=== PATIENT | female | born 1950 | race Caucasian/White ===

== ENCOUNTER → 2018-01-05 13:56 | Outpatient (CLI) | payer MEDICARE, SELFPAY ==
--- NOTE | 2018-01-05 16:45 | RAD_ITS ---
STUDY: X-RAY CHEST REASON FOR EXAM: Female, 67 years old. Productive cough and short of breath. TECHNIQUE: Frontal and lateral views of the chest. COMPARISON: 05/25/2017. FINDINGS: There is hyperinflation of the lungs consistent with chronic obstructive lung disease (COPD). No infiltrates. No effusions. There is no demonstrated pleural abnormality. Normal size heart. Normal mediastinum and tamia. Normal visualized pulmonary arteries. Normal visualized aortic arch and descending thoracic aorta. There are diffuse degenerative changes of the visualized thoracic spine. Previous cervical spine surgery. Normal visualized ribs, clavicles, and shoulders. There is no demonstrated abnormality of the visualized soft tissue structures of the upper abdomen. RAD/Chest PA and Lateral IMPRESSION: There are findings consistent with COPD. There is no evidence of acute chest disease. Electronically Signed: Ghassan Yung MD at 0:01 EDT , Service support ,
[2018-01-05 17:44] LABS: Absolute Neutrophil Count 11.9 X10^3/uL (2.0-7.7); Basophil# 0.03 X10^3/uL; Basophil% 0.2 % (0-1); Eosinophil# 0.01 X10^3/uL; Eosinophils% 0.1 % (0-5); Hematocrit 39.1 % (37-47); Hemoglobin 13.1 g/dl (12.0-15.0); Lymphocyte % 13.6 % (19-41); Mean Corp Hgb Conc 33.5 g/gl (32-36); Mean Corpuscular Hgb 30.8 pg (27.0-32.0); Mean Corpuscular Volume 91.8 fL (81-99); Monocyte# 0.78 X10^3/uL; Monocyte% 5.3 % (0-10); Neutrophil # 11.86 X10^3/uL (2.7-7.7); Neutrophil % 80.4 % (47-70); Platelet Count 391 K/mm3 (150-450); RBC Distribution Width CV 13.6 % (11.6-14.6); RBC Distribution Width SD 44.9 fl (35.1-43.9); Red Blood Count 4.26 M/mm3 (4.2-5.4); White Blood Count 14.7 K/mm3 (4.4-11.0)
[2018-01-05 17:46] LABS: POSITIVE COUNT NO; POSITIVE DIFFERENTIAL NO; POSITIVE MORPHOLOGY NO
[2018-01-05 17:49] LABS: Anion Gap 6 (5-15); BUN 13 mg/dL (7-18); BUN/Creat Ratio 17.2 RATIO (10-20); Chloride 101 mmol/L (98-107); Creatinine, Serum 0.76 mg/dL (0.55-1.02); EST Glomerular Filtration Rate 81 mL/min (>60); Est Glom Filt Rate - Afr Amer 97 mL/min (>60); Glucose 137 mg/dL (74-106); Potassium 3.5 mmol/L (3.5-5.1); Sodium Level 139 mmol/L (136-145)
== END ==
PROVIDERS: Family Provider Family Medicine Geriatric Medicine; PCP Family Medicine Geriatric Medicine; Visit Provider Family Medicine Geriatric Medicine
DX: J40 Bronchitis, not specified as acute or chronic (principal); R68.83 Chills (without fever)
CPT/HCPCS: 36415; 71046; 80048; 85025; 87633

== ENCOUNTER → 2018-01-29 14:48 | Outpatient (CLI) | payer MEDICARE, SELFPAY ==
--- NOTE | 2018-01-29 14:52 | BI_ITS ---
MAMMOGRAPHY - BILATERAL SCREENING REASON FOR EXAM: Female, 67 years old. Routine annual screening examination. PERTINENT HISTORY: Aunt with breast cancer. Remote right excisional breast biopsy. TECHNIQUE: Digital bilateral breast junior (3D mammographic acquisition) in the CC and MLO projections. 2-D mediolateral oblique (MLO) and craniocaudad (CC) views of both breasts were obtained. CAD: Full Field Digital Mammography with Computer Added Detection was performed. COMPARISON: Comparison is made with prior study dated October 31, 2016 and May 27, 2013. FINDINGS: Breast Composition: There are scattered areas of fibroglandular density. There are no dominant masses or suspicious calcifications. No other significant abnormalities are identified. There has been no significant change since the prior study. BI/SCREENING MAMM (CAD), BILAT IMPRESSION: Stable bilateral screening mammogram. Yearly follow-up mammogram recommended. (A) ASSESSMENT CATEGORY: BIRADS Category 1: Negative. A letter regarding these results will be sent to the patient by the facility within 30 days. Approximately 10% of breast cancers are not detected by mammography. A normal mammogram should not delay biopsy of a clinically suspicious abnormality. [id number] Electronically Signed: Vineet Harrington MD at 15:52 EDT Tel [phone], Service support ,
== END ==
PROVIDERS: Family Provider Family Medicine Geriatric Medicine; PCP Family Medicine Geriatric Medicine; Visit Provider Obstetrics & Gynecology
DX: Z12.31 Encounter for screening mammogram for malignant neoplasm of breast (principal)
CPT/HCPCS: 77063; 77067

== ENCOUNTER → 2018-07-22 11:20 | Outpatient (CLI) | payer MEDICARE, SELFPAY | PROVIDERS: Family Provider Family Medicine Geriatric Medicine; PCP Family Medicine Geriatric Medicine; Referring Provider Family Medicine Geriatric Medicine; Visit Provider Family Medicine Geriatric Medicine | DX: R68.83 Chills (without fever) (principal) | CPT/HCPCS: 87633 ==

== ENCOUNTER → 2018-08-26 11:40 | Outpatient (CLI) | payer MEDICARE, SELFPAY ==
[2018-08-26 13:36] LABS: Absolute Neutrophil Count 6.2 X10^3/uL (2.0-7.7); Basophil# 0.02 X10^3/uL; Basophil% 0.2 % (0-1); Eosinophil# 0.05 X10^3/uL; Eosinophils% 0.6 % (0-5); Hematocrit 41.2 % (37-47); Hemoglobin 13.6 g/dl (12.0-15.0); Lymphocyte % 22.5 % (19-41); Mean Corpuscular Hgb 31.1 pg (27.0-32.0); Mean Corpuscular Volume 94.1 fL (81-99); Mean Platelet Vol. 10.4 fl (6.2-12.0); Monocyte# 0.55 X10^3/uL; Monocyte% 6.2 % (0-10); Neutrophil # 6.24 X10^3/uL (2.7-7.7); Neutrophil % 70.2 % (47-70); Platelet Count 396 K/mm3 (150-450); RBC Distribution Width CV 13.7 % (11.6-14.6); RBC Distribution Width SD 47.2 fl (35.1-43.9); Red Blood Count 4.38 M/mm3 (4.2-5.4); White Blood Count 8.9 K/mm3 (4.4-11.0)
[2018-08-26 13:48] LABS: POSITIVE COUNT NO; POSITIVE DIFFERENTIAL NO; POSITIVE MORPHOLOGY NO
[2018-08-26 14:01] LABS: ALB/GLOB Ratio 0.9 RATIO (0.9-2.4); AST(SGOT) 15 U/L (15-37); Alanine Aminotransfer ALT/SGPT 29 U/L (13-56); Albumin, Serum 3.6 g/dL (3.2-5.0); Alkaline Phosphatase 148 U/L (45-117); Anion Gap 10 (5-15); BUN 11 mg/dL (7-18); BUN/Creat Ratio 14.2 RATIO (10-20); Calcium,Total 9.1 mg/dL (8.5-10.1); Chloride 99 mmol/L (98-107); Creatinine, Serum 0.78 mg/dL (0.55-1.02); EST Glomerular Filtration Rate 78 mL/min (>60); Est Glom Filt Rate - Afr Amer 95 mL/min (>60); Globulin 3.9 g/dL (2.2-4.2); Glucose 316 mg/dL (74-106); Potassium 3.5 mmol/L (3.5-5.1); Protein, Total 7.5 g/dL (6.4-8.2); Sodium Level 138 mmol/L (136-145)
[2018-08-27 10:16] LABS: Vitamin D,25 Hydroxy 23.6 ng/mL (29.95-100.01)
== END ==
PROVIDERS: Family Provider Family Medicine Geriatric Medicine; PCP Family Medicine Geriatric Medicine; Visit Provider Family Medicine Geriatric Medicine
DX: E55.9 Vitamin D deficiency, unspecified (principal); R53.83 Other fatigue
CPT/HCPCS: 36415; 80053; 82306; 84443; 85025

== ENCOUNTER 2018-10-28 16:47 | Inpatient (IN) | payer MEDICARE, SELFPAY ==
[2018-10-28 16:48] VITALS: BP 175/72; PULSE 61; RESP 16; TEMP 36.6; O2SAT 97; BMI 24.0
--- NOTE | 2018-10-28 16:57 | RAD_ITS ---
STUDY: X-RAY - LEFT KNEE REASON FOR EXAM: Female, 67 years old. Fell and injured left knee TECHNIQUE: 4 view(s) of the knee. COMPARISON: None. FINDINGS: Normal visualized distal femur. Normal visualized proximal tibia and fibula. Normal proximal tibiofibular articulation. Normal medial femorotibial compartment. Normal lateral femorotibial compartment. Normal patellofemoral articulation. The soft tissue structures are unremarkable. RAD/Knee 4 or More Views IMPRESSION: Normal x-ray examination of the knee. Electronically Signed: Efrain Hewitt MD at 18:40 EDT , Service support ,
--- NOTE | 2018-10-28 16:57 | RAD_ITS ---
STUDY: X-RAY - CERVICAL SPINE REASON FOR EXAM: Female, 67 years old. Fell and injured neck TECHNIQUE: 6 view(s) of the cervical spine were obtained. COMPARISON: CT cervical spine May 18, 2015 FINDINGS: Normal anterior atlantoaxial articulation. Normal odontoid process. Anterior plate and screws transfixes C5 and C6. Bony fusion. Hardware intact. Normal cervical lordosis. Normal vertebral bodies and endplates. Normal disc space heights. Normal visualized intervertebral neuroforamina. The soft tissue structures are unremarkable. RAD/Cerv Spine 2 or 3 Views IMPRESSION: Anterior cervical disc fusion C5-6 Electronically Signed: Efrain Hewitt MD at 18:43 EDT , Service support ,
--- NOTE | 2018-10-28 16:57 | RAD_ITS ---
STUDY: X-RAY - LEFT SHOULDER REASON FOR EXAM: Female, 67 years old. Fell and injured left shoulder TECHNIQUE: 2 view(s) of the shoulder. COMPARISON: None. FINDINGS: Normal glenohumeral articulation. Normal acromioclavicular joint. Normal acromion. Normal humeral head and visualized proximal humerus. The soft tissue structures are unremarkable. Normal visualized pulmonary apex. RAD/Shoulder min 2 Views IMPRESSION: Normal x-ray examination of the shoulder. Electronically Signed: Efrain Hewitt MD at 19:00 EDT , Service support ,
--- NOTE | 2018-10-28 16:57 | RAD_ITS ---
STUDY: X-RAY - PELVIS AND LEFT HIP REASON FOR EXAM: Female, 67 years old. Fell and injured left hip TECHNIQUE: 3 views of the pelvis and hip. COMPARISON: None. FINDINGS: There is a non-specific bowel gas pattern. Normal visualized soft tissue structures. Normal bilateral iliac wings, sacroiliac joints and visualized sacrum. Normal bilateral superior and inferior pubic rami. Normal pubic symphysis. Normal bilateral ischial tuberosities. Nondisplaced Transverse fracture base of femoral neck. Normal visualized femoral head. Normal acetabulum. Normal hip joint. RAD/HIP, UNI W/ Pelvis 2-3 Views IMPRESSION: Nondisplaced Basicervical femoral neck fracture on the left Electronically Signed: Efrain Hewitt MD at 18:38 EDT , Service support ,
--- NOTE | 2018-10-28 17:00 | ED.DCSUM_ITS ---
- ER Visit Summary Date of Service: 10/28/18 Chief Complaint: Fall History of Present Illness: The patient is a 67 F who presents after a fall. She tripped in her garage and landed on her left side. No LOC or head trauma. She does have some slight pain in her neck. Her main complaint is of left hip pain. She also has pain in the left shoulder, left hand and left knee. No previous surgeries to the hip. She is on no blood thinning medications. EMS immobilized her but did not administer any medications. Physical Examination: Vital signs are reviewed. HEENT exam unremarkable area at her cervical spine is nontender. Heart is regular rate and rhythm. Lungs are clear. Abdomen soft nontender. Her left shoulder is mildly tender. She has limited range of motion secondary to pain of the hand and shoulder. Hand is mildly tender as well. Her left hip is exquisitely tender with no range of motion because of pain. She keeps it in a flexed position. She does have pain with tenderness of the greater trochanteric area. Her left knee is also mildly tender with some swelling. Her GCS is 15. Neurologic exam normal. Test Results: X-rays of the left hand, knee, shoulder and cervical spine reveal nothing acute. The left hip x-ray does have a basicervical fracture Emergency Department Course and Treatment: Patient was given morphine and Dilaudid for continued pain. I discussed with Dr. Pollock and the patient will be admitted to the hospitalist for the left hip fracture. Screening labs and EKG will also be performed. Treatment Plan: [] Disposition: Admit Impression: Left basicervical hip fracture This note was generated with Perfect [employer] dictation software. It may contain incorrect words, spelling, and punctuation that were not noted in review of the chart prior to signing ED Disposition - Plan for ED Patient: Referrals: Marty Steve Chi, MD [Primary Care Provider] -
[2018-10-28 17:03] VITALS: O2SAT 99
[2018-10-28] MEDS: morphine 8 MG/ML Syringe IV (17:10)
--- NOTE | 2018-10-28 17:50 | RAD_ITS ---
STUDY: X-RAY - LEFT HAND REASON FOR EXAM: Female, 67 years old. Fell and injured left hand TECHNIQUE: 3 view(s) of the hand. COMPARISON: None. FINDINGS: Normal radiocarpal articulation. Normal distal radioulnar joint. Normal visualized carpal bones. Normal carpal articulations Normal carpometacarpal articulation of the thumb. Normal second through fifth carpometacarpal joints. Normal metacarpi. Normal metacarpophalangeal joint of the thumb. Normal interphalangeal joint of the thumb. Normal proximal and distal phalanges of the thumb. Normal metacarpophalangeal joints of the second through fifth fingers. Normal proximal and distal interphalangeal joints of the second through fifth fingers. Normal phalanges of the second through fifth fingers. The soft tissue structures are unremarkable. RAD/Hand Min 3 Views IMPRESSION: Normal x-ray examination of the hand. Electronically Signed: Efrain Hewitt MD at 19:02 EDT , Service support ,
[2018-10-28 18:25] VITALS: BP 153/84; PULSE 67; RESP 18; O2SAT 95
[2018-10-28] MEDS: HYDROmorphone 1 MG/ML Syringe IV (18:32)
[2018-10-28 18:49] LABS: Absolute Neutrophil Count 11.6 X10^3/uL (2.0-7.7); Basophil# 0.03 X10^3/uL; Basophil% 0.2 % (0-1); Eosinophil# 0.05 X10^3/uL; Eosinophils% 0.3 % (0-5); Hematocrit 37.1 % (37-47); Hemoglobin 12.5 g/dl (12.0-15.0); Lymphocyte % 12.6 % (19-41); Mean Corp Hgb Conc 33.7 g/gl (32-36); Mean Corpuscular Hgb 30.9 pg (27.0-32.0); Mean Corpuscular Volume 91.6 fL (81-99); Monocyte# 0.78 X10^3/uL; Monocyte% 5.5 % (0-10); Neutrophil # 11.57 X10^3/uL (2.7-7.7); Neutrophil % 80.8 % (47-70); Platelet Count 339 K/mm3 (150-450); RBC Distribution Width SD 43.6 fl (35.1-43.9); Red Blood Count 4.05 M/mm3 (4.2-5.4); White Blood Count 14.3 K/mm3 (4.4-11.0)
[2018-10-28 18:50] LABS: POSITIVE COUNT NO; POSITIVE DIFFERENTIAL NO; POSITIVE MORPHOLOGY NO
[2018-10-28 18:57] LABS: International Normalized Ratio 1.1; Prothrombin Time (Protime)PT. 13.7 SECONDS (11.7-14.9)
--- NOTE | 2018-10-28 19:10 | ED.RN ---
DR MISTRY CALL REFERENCE THIS ADMIT, DR MCKEON WILL BE IN SOON TO TAKE IT
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
[2018-10-28] MEDS: fentaNYL 100 MCG/2 ML Ampul 50 MCG IV (19:20)
[2018-10-28 19:21] VITALS: BMI 24.0
--- NOTE | 2018-10-28 19:22 | EKG12_ITS ---
Test Reason : FALL Blood Pressure : / mmHG Vent. Rate : 097 BPM Atrial Rate : 097 BPM P-R Int : 172 ms QRS Dur : 082 ms QT Int : 366 ms P-R-T Axes : 063 049 027 degrees QTc Int : 464 ms Sinus rhythm with occasional Premature ventricular complexes Cannot rule out Inferior infarct , age undetermined Cannot rule out Anterior infarct , age undetermined Abnormal ECG Confirmed by LUIS A GRANDE ([id number]), avid editor ARSH REID ([id number]) on 11/01/2018 4:53:08 PM Referred By: MAYRA Confirmed By:LUIS A GRANDE
[2018-10-28 19:24] LABS: Anion Gap 8 (5-15); BUN 9 mg/dL (7-18); BUN/Creat Ratio 14.6 RATIO (10-20); Calcium,Total 8.5 mg/dL (8.5-10.1); Chloride 105 mmol/L (98-107); Creatinine, Serum 0.62 mg/dL (0.55-1.02); EST Glomerular Filtration Rate 102 mL/min (>60); Est Glom Filt Rate - Afr Amer 123 mL/min (>60); Estimated Creatinine Clearance 51.63 ml/min; Glucose 162 mg/dL (74-106); Potassium 3.1 mmol/L (3.5-5.1); Sodium Level 139 mmol/L (136-145)
[2018-10-28 19:43] VITALS: BP 176/81; PULSE 95; RESP 18; O2SAT 96
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
[2018-10-28] MEDS: HYDROmorphone 0.5 MG/0.5 ML SYRINGE IV (21:32)
[2018-10-28] MEDS: Donepezil HCl 5 MG Tablet PO (21:32)
[2018-10-28 21:47] VITALS: BP 117/61; PULSE 83; RESP 18; TEMP 37.4; O2SAT 95
[2018-10-28 21:49] LABS: Magnesium 1.9 mg/dL (1.6-2.6)
[2018-10-28] MEDS: 0.9% Normal Saline 1,000 ML 100 ML IV (22:25)
[2018-10-28] MEDS: MELATONIN 10 MG TABLET PO (22:25)
[2018-10-28 22:29] VITALS: BMI 24.3
[2018-10-28 22:46] LABS: Thyroid Stim Hormone (TSH) 6.24 uIU/mL (0.358-3.74)
[2018-10-28 22:54] LABS: Hemoglobin A1c 8.9 % (4.2-6.3)
[2018-10-28] MEDS: oxyCODONE 5 MG Tablet PO (23:39)
[2018-10-29] VITALS (17 sets, daily range): BP systolic 102–153; BP diastolic 55–80; PULSE 70–113; RESP 14–22; TEMP 36.7–37.6; O2SAT 90–95; BMI 24.3; BMI 24.0
[2018-10-29] MEDS: Ketorolac 30 MG/ML Syringe IV (02:14)
[2018-10-29] MEDS: HYDROmorphone 1 MG/ML Syringe IV ×2 (02:15→12:28)
[2018-10-29 02:35] LABS: Mucous, Urine 0 SEEN /hpf (<or=2+); White Blood Cells 0 SEEN /hpf (0-5)
[2018-10-29 02:39] LABS: Color, Urine Yellow (Yellow); Glucose, Dipstick 50 mg/dl (Normal); Ketone-Dipstick 5 mg/dl (Negative); Leukocyte Esterase-Dipstick Negative /ul (Negative); Nitrite-Dipstick Negative (Negative); Occult Blood-Urine Negative /ul (Negative); Protein-Dipstick 30 mg/dl (Negative); Urine Clarity Turbid (Clear); Urine Urobilinogen 1 mg/dl (Normal)
[2018-10-29 02:47] LABS: Urine Bilirubin Dipstick 1 mg/dL (Negative)
[2018-10-29 02:52] LABS: Bacteria 3+ /hpf (None Seen); Hyaline Cast 0-5 SEEN /lpf (0-5); Red Blood Cells-Urine 0-5 SEEN /hpf (0-5); Squamous Epithelial Cells - UA 0-5 SEEN /hpf (5-10)
[2018-10-29 05:49] LABS: Absolute Lymphocyte Count 1.27 X10^3/ul (0.83-4.51); Absolute Neutrophil Count 9.9 X10^3/uL (2.0-7.7); Basophil# 0.03 X10^3/uL; Basophil% 0.2 % (0-1); Eosinophil# 0.03 X10^3/uL; Eosinophils% 0.2 % (0-5); Hematocrit 36.4 % (37-47); Hemoglobin 11.8 g/dl (12.0-15.0); Lymphocyte # 1.27 X10^3/ul (4.0); Lymphocyte % 10.4 % (19-41); Mean Corp Hgb Conc 32.4 g/gl (32-36); Mean Corpuscular Hgb 30.7 pg (27.0-32.0); Mean Corpuscular Volume 94.8 fL (81-99); Monocyte# 1.04 X10^3/uL; Monocyte% 8.5 % (0-10); Neutrophil # 9.85 X10^3/uL (2.7-7.7); Neutrophil % 80.4 % (47-70); Platelet Count 306 K/mm3 (150-450); RBC Distribution Width SD 43.7 fl (35.1-43.9); Red Blood Count 3.84 M/mm3 (4.2-5.4); White Blood Count 12.3 K/mm3 (4.4-11.0)
--- NOTE | 2018-10-29 05:55 | EKG12_ITS ---
Test Reason : AM Blood Pressure : / mmHG Vent. Rate : 078 BPM Atrial Rate : 078 BPM P-R Int : 168 ms QRS Dur : 078 ms QT Int : 382 ms P-R-T Axes : 037 024 064 degrees QTc Int : 435 ms Sinus rhythm with occasional Premature ventricular complexes Low voltage QRS Borderline ECG When compared with ECG of 28-OCT-2018 19:31, MANUAL COMPARISON REQUIRED, DATA IS UNCONFIRMED Confirmed by JOSE OROSCO, QUIRINO ([id number]), newspaper or periodical editor ARSH REID ([id number]) on 11/03/2018 2:01:10 PM Referred By: MIKE Confirmed By:QUIRINO GARCIA MD
[2018-10-29 05:57] LABS: POSITIVE COUNT NO; POSITIVE DIFFERENTIAL NO; POSITIVE MORPHOLOGY NO
[2018-10-29 06:16] LABS: ALB/GLOB Ratio 0.8 RATIO (0.9-2.4); AST(SGOT) 20 U/L (15-37); Alanine Aminotransfer ALT/SGPT 25 U/L (13-56); Albumin, Serum 2.9 g/dL (3.2-5.0); Alkaline Phosphatase 86 U/L (45-117); Anion Gap 4 (5-15); BUN 12 mg/dL (7-18); Calcium,Total 8.1 mg/dL (8.5-10.1); Chloride 111 mmol/L (98-107); Creatinine, Serum 0.71 mg/dL (0.55-1.02); EST Glomerular Filtration Rate 87 mL/min (>60); Est Glom Filt Rate - Afr Amer 105 mL/min (>60); Globulin 3.6 g/dL (2.2-4.2); Glucose 198 mg/dL (74-106); Potassium 4.7 mmol/L (3.5-5.1); Protein, Total 6.5 g/dL (6.4-8.2); Sodium Level 142 mmol/L (136-145); T4 Free Direct 1.21 ng/dL (0.76-1.46)
[2018-10-29] MEDS: Insulin Lispro 100 UNIT/ML INSULN.PEN SC ×2 (06:25→23:08)
[2018-10-29 06:26] LABS: Bedside Glucose 185 mg/dL (70-110)
[2018-10-29] MEDS: oxyCODONE 5 MG Tablet PO (06:26)
[2018-10-29] MEDS: 0.9% Normal Saline 1,000 ML 100 ML IV ×2 (07:30→18:49)
--- NOTE | 2018-10-29 09:16 | CASEMGMT ---
Social Work Note URBANO met with pt. URBANO introduced self and role at [facility]. Pt is alert and orientated x4. SW informed pt that she may be a good candidate for RU as pt was previously independent with ADLS. Pt agreeable to RU. URBANO explained pt will need pre-cert from insurance. Pt states understanding. URBANO spoke with Sonal with RU stating she will review PT/OT notes and will submit for pre-cert for RU. Pt is having surgery today. Plan: RU pending pre-cert Jennifer Jasso INDEPENDENT LIVING SPECIALIST, NEGATIVE TURNER APPRENTICE
[2018-10-29] MEDS: Escitalopram Oxalate 10 MG Tablet PO (09:36)
[2018-10-29] MEDS: Famotidine 20 MG Tablet PO (09:36)
--- NOTE | 2018-10-29 09:49 | NURSING ---
Karly in [facility] called and states that patient will be picked up for surgery at 1400- Asha, MICHELE and SNAPPER ON's notified of same.
[2018-10-29 12:16] LABS: Bedside Glucose 157 mg/dL (70-110)
--- NOTE | 2018-10-29 12:18 | PN_ITS ---
Patient Problems: Active and Suspected Problems Closed left hip fracture (Acute) Subjective: The patient is a 67-year-old female with a past medical history of anxiety/depression, former tobacco dependence, cervical fusion at C5-6 and strong family history of dementia, on prophylactic Aricept presented to the emergency department at [facility] on 10/28/2018 after having a fall in her garage. She denied syncope. She had severe left hip pain and x-ray in the emergency room showed a nondisplaced basicervical femoral neck fracture on the left. Left knee x-ray was normal. Left shoulder and hand x-rays were normal. Significant lab included an elevated white blood cell count at 14.3 with 81% neutrophils, potassium of 3.1 and hemoglobin A1c of 8.9. UA had 0 WBCs but 3+ bacteria. She was admitted to the hospital with a diagnosis of left hip fracture and Dr. Pollock was consulted for surgery. All events of the past 24 hours of been reviewed. She is afebrile. Blood pressure was initially high but is currently 136/59. She is 93-94% saturated on 2 L nasal cannula. All lab was personally reviewed. TSH is increased at 6.24 but the free T4 is normal at 1.21. Denies chest pain, shortness of breath, abdominal pain, nausea. EKG shows normal sinus rhythm with a PVC and no suspicious ST or T wave changes. No evidence of prior myocardial infarction. Objective: PHYSICAL EXAM: GENERAL: alert, oriented X 3, Cooperative, NAD ORAL: dry mucosa, no mucosal lesions NECK: No JVD, supple, trachea midline LUNGS: CTA, symmetric chest expansion, not tachypneic lying flat in bed, no accessory muscle use, no conversational dyspnea HEART: RRR, Normal S1 and S2, no rub, no gallop ABDOMEN: soft, NT, ND, BS present, no guarding with palpation EXTREMITIES: no edema, no cyanosis, no calf tenderness, pedal pulses are normal, the left lower extremity is shortened and externally rotated SKIN: No rashes, no breakdown NEUROLOGIC: no focal neurologic deficits PSYCH: appropriate, normal affect, pleasant - Physical Exam Vital Signs Temp Pulse Resp BP Pulse Ox 98.5 F 78 18 136/59 H 93 10/29/18 09:30 10/29/18 09:30 10/29/18 09:30 10/29/18 09:30 10/29/18 09:30 Oxygen Flow Rate (L/min) 2 Oxygen Delivery Method Nasal Cannula Weight: 154 lb 15.759 oz Body Mass Index (BMI) 24.3 Finger Stick Blood Glucose 114 Intake and Output for Last 24 Hours 10/27/18 10/28/18 10/29/18 23:59 23:59 23:59 Intake Total 452 / 452 658 / 658 Output Total 100 / 100 180 / 180 Balance 352 / 352 478 / 478 Laboratory Tests Past 24 Hrs 10/28/18 10/28/18 10/28/18 18:30 18:30 18:30 WBC 14.3 H RBC 4.05 L Hgb 12.5 Hct 37.1 MCV 91.6 MCH 30.9 MCHC 33.7 RDW 13.0 RDW Differential 43.6 Plt Count 339 MPV 10.0 Immature Gran % (Auto) 0.600 Neut % (Auto) 80.8 H Lymph % (Auto) 12.6 L [place] % (Auto) 5.5 Eos % (Auto) 0.3 Baso % (Auto) 0.2 Absolute Neuts (auto) 11.6 H Absolute Lymphs (auto) 1.80 Total Counted Not Reportable PT 13.7 INR 1.1 Sodium 139 Potassium 3.1 L Chloride 105 Carbon Dioxide 26.0 Anion Gap 8 BUN 9 Creatinine 0.62 Estim Creat Clear Calc 51.63 Est GFR (MDRD) Af Amer 123 Est GFR (MDRD) Non-Af 102 BUN/Creatinine Ratio 14.6 Glucose 162 H Hemoglobin A1c Calcium 8.5 Magnesium Total Bilirubin AST ALT Alkaline Phosphatase Total Protein Albumin Globulin Albumin/Globulin Ratio TSH Free T4 Urine Color Urine Clarity Urine pH Ur Specific [place] Urine Protein Urine Glucose (UA) Urine Ketones Urine Occult Blood Urine Nitrite Urine Bilirubin Urine Urobilinogen Ur Leukocyte Esterase Urine RBC Urine WBC Ur Squamous Epith Cells Urine Bacteria Hyaline Casts Urine Mucus Blood Type Antibody Screen 10/28/18 10/28/18 10/28/18 18:30 18:30 18:30 WBC RBC Hgb Hct MCV MCH MCHC RDW RDW Differential Plt Count MPV Immature Gran % (Auto) Neut % (Auto) Lymph % (Auto) Butts % (Auto) Eos % (Auto) Baso % (Auto) Absolute Neuts (auto) Absolute Lymphs (auto) Total Counted PT INR Sodium Potassium Chloride Carbon Dioxide Anion Gap BUN Creatinine Estim Creat Clear Calc Est GFR (MDRD) Af Amer Est GFR (MDRD) Non-Af BUN/Creatinine Ratio Glucose Hemoglobin A1c 8.9 H Calcium Magnesium 1.9 Total Bilirubin AST ALT Alkaline Phosphatase Total Protein Albumin Globulin Albumin/Globulin Ratio TSH 6.24 H Free T4 Urine Color Urine Clarity Urine pH Ur Specific [place] Urine Protein Urine Glucose (UA) Urine Ketones Urine Occult Blood Urine Nitrite Urine Bilirubin Urine Urobilinogen Ur Leukocyte Esterase Urine RBC Urine WBC Ur Squamous Epith Cells Urine Bacteria Hyaline Casts Urine Mucus Blood Type Antibody Screen 10/28/18 10/29/18 10/29/18 18:30 01:40 05:34 WBC 12.3 H RBC 3.84 L Hgb 11.8 L Hct 36.4 L MCV 94.8 MCH 30.7 MCHC 32.4 RDW 13.0 RDW Differential 43.7 Plt Count 306 MPV 10.0 Immature Gran % (Auto) 0.300 Neut % (Auto) 80.4 H Lymph % (Auto) 10.4 L [place] % (Auto) 8.5 Eos % (Auto) 0.2 Baso % (Auto) 0.2 Absolute Neuts (auto) 9.9 H Absolute Lymphs (auto) 1.27 Total Counted Not Reportable PT INR Sodium Potassium Chloride Carbon Dioxide Anion Gap BUN Creatinine Estim Creat Clear Calc Est GFR (MDRD) Af Amer Est GFR (MDRD) Non-Af BUN/Creatinine Ratio Glucose Hemoglobin A1c Calcium Magnesium Total Bilirubin AST ALT Alkaline Phosphatase Total Protein Albumin Globulin Albumin/Globulin Ratio TSH Free T4 Urine Color Yellow Urine Clarity Turbid Urine pH 5.0 Ur Specific [place] 1.030 Urine Protein 30 H Urine Glucose (UA) 50 H Urine Ketones 5 H Urine Occult Blood Negative Urine Nitrite Negative Urine Bilirubin 1 H Urine Urobilinogen 1 H Ur Leukocyte Esterase Negative Urine RBC 0-5 SEEN Urine WBC 0 SEEN Ur Squamous Epith Cells 0-5 SEEN Urine Bacteria 3+ Hyaline Casts 0-5 SEEN Urine Mucus 0 SEEN Blood Type B POSITIVE Antibody Screen NEGATIVE 10/29/18 05:34 WBC RBC Hgb Hct MCV MCH MCHC RDW RDW Differential Plt Count MPV Immature Gran % (Auto) Neut % (Auto) Lymph % (Auto) Butts % (Auto) Eos % (Auto) Baso % (Auto) Absolute Neuts (auto) Absolute Lymphs (auto) Total Counted PT INR Sodium 142 Potassium 4.7 Chloride 111 H Carbon Dioxide 27.0 Anion Gap 4 L BUN 12 Creatinine 0.71 Estim Creat Clear Calc 49.70 Est GFR (MDRD) Af Amer 105 Est GFR (MDRD) Non-Af 87 BUN/Creatinine Ratio 17.0 Glucose 198 H Hemoglobin A1c Calcium 8.1 L Magnesium Total Bilirubin 0.50 AST 20 ALT 25 Alkaline Phosphatase 86 Total Protein 6.5 Albumin 2.9 L Globulin 3.6 Albumin/Globulin Ratio 0.8 L TSH Free T4 1.21 Urine Color Urine Clarity Urine pH Ur Specific [place] Urine Protein Urine Glucose (UA) Urine Ketones Urine Occult Blood Urine Nitrite Urine Bilirubin Urine Urobilinogen Ur Leukocyte Esterase Urine RBC Urine WBC Ur Squamous Epith Cells Urine Bacteria Hyaline Casts Urine Mucus Blood Type Antibody Screen POC Glucose 10/29/18 06:21 POC Glucose 185 H Medical Necessity - Tobacco Use Smoking Status: Former smoker - Patient quit approximately 25 years prior to current presentation. Tobacco Use: Non-smoker Assessment/Plan All Active Problems Closed left hip fracture (Acute) HTN (hypertension) (Acute) Frequent unifocal PVCs (Acute) Chest pain (Acute) Impressions 1. Left hip fracture secondary to a mechanical fall 2. Diabetes mellitus type 2. This is a new diagnosis. Hemoglobin A1c is 8.9. 3. Hypokalemia 4. Anxiety/depression 5. Former smoker and quit in approximately 1994. 6. Strong family history of dementia on Aricept urine is very cloudy in the tang bag - recheck a UA and culture Recheck lab in the AM Calcium and Vitamin D supplementation Potassium has been adequately replaced. Continue sliding scale insulin. When she is done with surgery and tolerating meals will start an oral agent. Will likely use metformin initially. Continue Accu-Cheks before meals and at bedtime Code Visit Inpatient E&M: 94789 Subs Hosp L2
[2018-10-29] MEDS: 0.9% NaCl Peripheral Flush Adult/Peds IV (12:28)
[2018-10-29 12:35] LABS: Bacteria 0 SEEN /hpf (None Seen); Mucous, Urine 0 SEEN /hpf (<or=2+)
[2018-10-29 12:44] LABS: Color, Urine Yellow (Yellow); Glucose, Dipstick 50 mg/dl (Normal); Ketone-Dipstick 5 mg/dl (Negative); Leukocyte Esterase-Dipstick 25 /ul (Negative); Nitrite-Dipstick Negative (Negative); Occult Blood-Urine 10 /ul (Negative); Protein-Dipstick 100 mg/dl (Negative); Urine Clarity Sl. Cloudy (Clear); Urine Urobilinogen 1 mg/dl (Normal)
[2018-10-29 12:46] LABS: Urine Bilirubin Dipstick 1 mg/dL (Negative)
[2018-10-29 12:53] LABS: Red Blood Cells-Urine 0-5 SEEN /hpf (0-5); Squamous Epithelial Cells - UA 0-5 SEEN /hpf (5-10); White Blood Cells 0-5 SEEN /hpf (0-5)
--- NOTE | 2018-10-29 14:16 | NURSING ---
Off unit to OR at this time.
--- NOTE | 2018-10-29 15:00 | RAD_ITS ---
STUDY: X-RAY - LEFT FEMUR REASON FOR STUDY: Female, 67 years old. Intramedullary rodding TECHNIQUE: 8 fluoroscopic spot view(s) of the femur. COMPARISON: None. FINDINGS: Intramedullary luis and compression screws left femoral neck RAD/Femur Min 2 Views IMPRESSION: Please correlate with clinical service Electronically Signed: Efrain Hewitt MD at 17:08 EDT , Service support ,
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
--- NOTE | 2018-10-29 15:52 | PCM.OPRPT ---
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 [employer]hew InterTAN nail 125 degree 10 mm x 38 cm 2. [employer]hew InterTAN lag screw 95mm Brief history operative indications: 67-year-old female who fell yesterday in her garage sustaining a left hip basicervical fracture. After extensive discussion including risk and benefits which include but are not limited to blood loss, PEs, DVTs, neurovascular damage, nonunions, malunions and screw cut out patient has elected to proceed with a L cephalo-medullary nail. Procedure: On the date of the procedure the patient's L hip was marked in the preoperative area and patient was taken back to the operating room. Anesthetic was administered and patient was transferred to the table were all bony prominence identified well-padded and the ipsilateral arm was placed across the chest. Patient was then translated down to the perineal post and the operative leg was placed in the boot while the nonoperative leg was lowered and secured. The operative leg was placed in traction and internal rotation and live fluoroscopy was used to verify adequate reduction. The operative leg was then prepped in a sterile fashion with chlorhexidine while the surgeon scrubbed. Upon reentering the room the operative extremity was draped in the standard orthopedic fashion. Skin incision was marked and a timeout was called. Everyone agreed upon the side, the site, the procedure be performed, patient's identity, and antibiotics given. Skin incision was made and the position of the entry guidepin was verified using live fluoroscopy. Once we were satisfied with our position the pin was advanced in the soft tissue protector was placed over the pin. The entry reamer was then advanced into the proximal portion of the femur. A guidewire was placed down the intramedullary canal and fluoroscopy was used to verify that the anterior cortex had not been breached distally as well as satisfactory distal positioning. We then used live fluoroscopy to verify the length of the nail and a [employer]hew InterTAN 125 degree 38 cm by 10 mm hip nail was selected. The 11.5 mm reamer was then passed. The nail was then attached to the message clerk and inserted into the intramedullary canal. The appropriate depth was verified and the skin incision for the lag screw was made. The lag screw guidepin was then placed under live fluoroscopy and when a satisfactory position was obtained the length of the screw was measured and the standard technique to drill for the lag screws was performed. The anti-rotation bar was used. At this time a 95MM lag screw was selected with its corresponding compression screw. The lag screw was then passed and traction was left off the leg. The compression screw was then passed and the fracture was compressed. The final position of the lag screw was verified under fluoroscopy. Once we were satisfied with our positioning the wounds were copiously irrigated out with normal saline skin was closed with 2-0 Vicryl and rosita for final skin closure. A sterile dressing was placed with Xeroform. Patient was then awakened by anesthesia transferred from the fracture table back to their hospital bed and transferred to the PACU for recovery. Postoperative plan: Patient will be weight-bear as tolerated. Xarelto for DVT prophylaxis with knee-high stockings. Follow up in the office in 2 weeks. Grafts/Implants Used: Ro [employer] Nephew InterTAN - Complications No intraoperative complications - Admit VTE Documentation VTE Present on Admission: No VTE Mechan Device Prophylaxis: SCD's, Thigh High JANY Hose VTE Pharm Prophylaxis ordered?: Yes
--- NOTE | 2018-10-29 15:55 | OP.PCM_ITS ---
Report of Operation Date of Procedure: 10/29/18 Pre-Operative Diagnosis: Left displaced basicervical hip fracture Post-Operative Diagnosis: Left displaced basicervical hip fracture Surgery/Procedure Performed:: Left hip cephalo-medullary nail Description of Surgical Findings:: Stable hip well reduced marketing traffic manager: None Type of Anesthesia:: General Anesthesiologist: Panfilo Hathaway Special Medications: 600 mg clindamycin Estimated Blood Loss (mL): 150 Fluids Replaced: 600 mL crystalloid Description of Procedure: Components used: 1. Ro [employer] Nephew InterTAN nail 125 degree 10 mm x 38 cm 2. [employer]hew InterTAN lag screw 95mm Brief history operative indications: 67-year-old female who fell yesterday in her garage sustaining a left hip basicervical fracture. After extensive discussion including risk and benefits which include but are not limited to blood loss, PEs, DVTs, neurovascular damage, nonunions, malunions and screw cut out patient has elected to proceed with a L cephalo-medullary nail. Procedure: On the date of the procedure the patient's L hip was marked in the preoperative area and patient was taken back to the operating room. Anesthetic was administered and patient was transferred to the table were all bony prominence identified well-padded and the ipsilateral arm was placed across the chest. Patient was then translated down to the perineal post and the operative leg was placed in the boot while the nonoperative leg was lowered and secured. The operative leg was placed in traction and internal rotation and live fluoroscopy was used to verify adequate reduction. The operative leg was then prepped in a sterile fashion with chlorhexidine while the surgeon scrubbed. Upon reentering the room the operative extremity was draped in the standard orthopedic fashion. Skin incision was marked and a timeout was called. Everyon e agreed upon the side, the site, the procedure be performed, patient's identity, and antibiotics given. Skin incision was made and the position of the entry guidepin was verified using live fluoroscopy. Once we were satisfied with our position the pin was advanced in the soft tissue protector was placed over the pin. The entry reamer was then advanced into the proximal portion of the femur. A guidewire was placed down the intramedullary canal and fluoroscopy was used to verify that the anterior cortex had not been breached distally as well as satisfactory distal positioning. We then used live fluoroscopy to verify the length of the nail and a Ro [employer] Nephew InterTAN 125 degree 38 cm by 10 mm hip nail was selected. The 11.5 mm reamer was then passed. The nail was then attached to the online marketing coordinator and inserted into the intramedullary canal. The appropriate depth was verified and the skin incision for the lag screw was made. The lag screw guidepin was then placed under live fluoroscopy and when a satisfactory position was obtained the length of the screw was measured and the standard technique to drill for the lag screws was performed. The anti-rotation bar was used. At this time a 95MM lag screw was selected with its corresponding compression screw. The lag screw was then passed and traction was left off the leg. The compression screw was then passed and the fracture w as compressed. The final position of the lag screw was verified under fluoroscopy. Once we were satisfied with our positioning the wounds were copiously irrigated out with normal saline skin was closed with 2-0 Vicryl and rosita for final skin closure. A sterile dressing was placed with Xeroform. Patient was then awakened by anesthesia transferred from the fracture table back to their hospital bed and transferred to the PACU for recovery. Postoperative plan: Patient will be weight-bear as tolerated. Xarelto for DVT prophylaxis with knee-high stockings. Follow up in the office in 2 weeks. Grafts/Implants Used: Ro & Nephew InterTAN - Complications No intraoperative complications - Admit VTE Documentation VTE Present on Admission: No VTE Mechan Device Prophylaxis: SCD's, Thigh High JANY Hose VTE Pharm Prophylaxis ordered?: Yes
--- NOTE | 2018-10-29 16:14 | RAD_ITS ---
STUDY: X-RAY -pelvis LEFT FEMUR REASON FOR STUDY: Female, 67 years old. Postop left femur TECHNIQUE: 4 view(s) of the femur. COMPARISON: None. FINDINGS: 2 compression screws and intramedullary luis transfix the left femoral neck. Normal visualized femur. Subcutaneous gas left hip and skin rosita. RAD/Femur Min 2 Views IMPRESSION: Status post ORIF left femur Electronically Signed: Efrain Hewitt MD at 20:22 EDT , Service support ,
[2018-10-29] MEDS: Ipratropium/Albuterol Sulfate 3 ML AMPUL.NEB INHALATION (17:01)
[2018-10-29 17:20] LABS: Bedside Glucose 166 mg/dL (70-110)
[2018-10-29] MEDS: Senna/Docusate Sodium 1 Tablet 2 TABLET PO (23:08)
[2018-10-29] MEDS: Donepezil HCl 5 MG Tablet PO (23:08)
[2018-10-29 23:25] LABS: Bedside Glucose 187 mg/dL (70-110)
[2018-10-30] VITALS (22 sets, daily range): BP systolic 104–146; BP diastolic 47–99; PULSE 78–104; RESP 16–24; TEMP 35.9–37.3; O2SAT 87–98
[2018-10-30] MEDS: Acetaminophen 325 MG Tablet 650 MG PO (02:06)
[2018-10-30] MEDS: 0.9% Normal Saline 1,000 ML 100 ML IV ×2 (05:37→15:52)
[2018-10-30] MEDS: Enoxaparin 40 MG/0.4 ML Syringe SC (05:42)
[2018-10-30] MEDS: Insulin Lispro 100 UNIT/ML INSULN.PEN SC ×3 (06:46→22:17)
[2018-10-30 06:55] LABS: Bedside Glucose 190 mg/dL (70-110)
[2018-10-30 07:57] LABS: Absolute Lymphocyte Count 1.19 X10^3/ul (0.83-4.51); Absolute Neutrophil Count 7.8 X10^3/uL (2.0-7.7); Basophil# 0.02 X10^3/uL; Basophil% 0.2 % (0-1); Eosinophil# 0.11 X10^3/uL; Eosinophils% 1.1 % (0-5); Hematocrit 31.1 % (37-47); Hemoglobin 9.9 g/dl (12.0-15.0); Lymphocyte # 1.19 X10^3/ul (4.0); Lymphocyte % 11.9 % (19-41); Mean Corp Hgb Conc 31.8 g/gl (32-36); Mean Corpuscular Volume 97.5 fL (81-99); Monocyte# 0.87 X10^3/uL; Monocyte% 8.7 % (0-10); Platelet Count 228 K/mm3 (150-450); RBC Distribution Width CV 13.4 % (11.6-14.6); RBC Distribution Width SD 47.7 fl (35.1-43.9); Red Blood Count 3.19 M/mm3 (4.2-5.4)
[2018-10-30 08:02] LABS: POSITIVE COUNT NO; POSITIVE DIFFERENTIAL NO; POSITIVE MORPHOLOGY NO
--- NOTE | 2018-10-30 08:04 | PN.ORTHO_ITS ---
Patient Problems: Active and Suspected Problems Closed left hip fracture (Acute) Subjective: Patient is doing well this morning. She is resting comfortably in bed. She reports some thigh and hip pain this morning overall controlled. No chest pain or shortness of breath. No calf pain. Is requiring oxygen by nasal cannula. Objective: Femur x-rays postoperatively show well fixed fracture well-placed implants. - Physical Exam General: Alert, Oriented x3, Cooperative Extremities: - - Left lower extremity: Dressing is clean dry and intact Sensations intact to light touch saphenous, sural, superficial peroneal, deep peroneal, and tibial distributions Motors intact EHL, DF, PF calves are soft and supple Vital Signs Temp Pulse Resp BP Pulse Ox 98.3 F 84 16 104/51 L 92 10/30/18 05:45 10/30/18 05:45 10/30/18 05:45 10/30/18 05:45 10/30/18 05:45 Oxygen Flow Rate (L/min) 4 Oxygen Delivery Method Nasal Cannula Weight: 154 lb 15.759 oz Body Mass Index (BMI) 24.3 Finger Stick Blood Glucose 166 Intake and Output for Last 24 Hours 10/28/18 10/29/18 10/30/18 23:59 23:59 23:59 Intake Total 452 / 452 2279 / 2279 1366 / 1366 Output Total 100 / 100 430 / 430 225 / 225 Balance 352 / 352 1849 / 1849 1141 / 1141 Laboratory Tests Past 24 Hrs 10/29/18 10/30/18 10/30/18 12:23 07:17 07:17 WBC Pending RBC Pending Hgb Pending Hct Pending MCV Pending MCH Pending MCHC Pending RDW Pending RDW Differential Pending Plt Count Pending Neut % (Auto) Pending Absolute Neuts (auto) Pending Total Counted Pending Sodium Pending Potassium Pending Chloride Pending Carbon Dioxide Pending Anion Gap Pending BUN Pending Creatinine Pending Est GFR (MDRD) Af Amer Pending Est GFR (MDRD) Non-Af Pending BUN/Creatinine Ratio Pending Glucose Pending Calcium Pending Phosphorus Pending Magnesium Pending Urine Color Yellow Urine Clarity Sl. Cloudy Urine pH 5.0 Ur Specific [place] 1.030 Urine Protein 100 H Urine Glucose (UA) 50 H Urine Ketones 5 H Urine Occult Blood 10 H Urine Nitrite Negative Urine Bilirubin 1 H Urine Urobilinogen 1 H Ur Leukocyte Esterase 25 H Urine RBC 0-5 SEEN Urine WBC 0-5 SEEN Ur Squamous Epith Cells 0-5 SEEN Urine Bacteria 0 SEEN Urine Mucus 0 SEEN POC Glucose 10/30/18 10/29/18 10/29/18 06:42 23:03 17:07 POC Glucose 190 H 187 H 166 H 10/29/18 12:10 POC Glucose 157 H Medical Necessity - Tobacco Use Smoking Status: Former smoker - Patient quit approximately 25 years prior to current presentation. Tobacco Use: Non-smoker Assessment/Plan All Active Problems Closed left hip fracture (Acute) HTN (hypertension) (Acute) Frequent unifocal PVCs (Acute) Chest pain (Acute) Postop day 1 left hip cephalo-medullary nail 1. DVT prophylaxis: Patient is on Lovenox would remain on Lovenox inpatient and discharged on aspirin twice daily if patient is well mobilized. Continue the Lovenox until first postoperative visit patient is discharged to half-way facility. 2. Pain control: Pain currently under control with current regimen 3. Physical therapy: Weight-bear as tolerated, activity as tolerated 4. Disposition: Patient lives at home alone. Per preoperative discussions patient will likely need discharge to skilled facility will probably likely be a candidate for rehabilitation. Final disposition will be pending physical therapy eval and medical clearance. [facility] Office:
[2018-10-30 08:15] LABS: Anion Gap 4 (5-15); BUN 15 mg/dL (7-18); BUN/Creat Ratio 26.2 RATIO (10-20); Calcium,Total 8.1 mg/dL (8.5-10.1); Chloride 111 mmol/L (98-107); Creatinine, Serum 0.57 mg/dL (0.55-1.02); EST Glomerular Filtration Rate 111 mL/min (>60); Est Glom Filt Rate - Afr Amer 134 mL/min (>60); Glucose 191 mg/dL (74-106); Magnesium 1.9 mg/dL (1.6-2.6); Phosphorus 2.9 mg/dL (2.5-4.9); Potassium 4.2 mmol/L (3.5-5.1); Sodium Level 142 mmol/L (136-145)
[2018-10-30] MEDS: oxyCODONE 5 MG Tablet PO (08:18)
[2018-10-30] MEDS: Escitalopram Oxalate 10 MG Tablet PO (08:19)
[2018-10-30] MEDS: Famotidine 20 MG Tablet PO (08:19)
[2018-10-30] MEDS: Senna/Docusate Sodium 1 Tablet 2 TABLET PO (08:19)
[2018-10-30] MEDS: Calcium Carb/Vitamin D 1 TABLET Tablet PO (08:19)
[2018-10-30 11:41] LABS: Bedside Glucose 183 mg/dL (70-110)
--- NOTE | 2018-10-30 14:31 | NURSING ---
TEXT TO DR MISTRY MAKING HER AWARE OF PTS CONTINUED LETHARGY, LOW O2 SATS.
--- NOTE | 2018-10-30 14:42 | CT_ITS ---
We are attempting to reach Jolene Fox to discuss findings. An addendum with communication details will be sent when the communication is complete. STUDY: CT BRAIN WITHOUT CONTRAST REASON FOR EXAM: Female, 67 years old. Right-sided weakness RADIATION DOSAGE (If Supplied By Facility): CTDIvol = ( 44.99 ) mGy, DLP = ( 765.18 ) mGycm TECHNIQUE: Transaxial CT imaging of the brain was performed without administration of intravenous contrast material. Individualized dose optimization techniques were used for this CT. COMPARISON: 05/18/2015 FINDINGS: Normal soft tissue structures. Normal calvarium. Normal size ventricles and extra-axial spaces for the patient's age. Normal white matter tracts of the cerebral hemispheres. Normal basal ganglia and thalami. Normal brainstem. Normal cerebellum. There is no intracranial hemorrhage. There are no findings of an acute ischemic infarction. Normal visualized paranasal sinuses. CT/Brain/Head without Contrast IMPRESSION: No acute intracranial hemorrhage or mass effect. Stable appearance since 2014. Electronically Signed: Arthur Figueroa MD at 15:12 EDT , Service support ,
--- NOTE | 2018-10-30 14:49 | NURSING ---
DR MISTRY HERE TO ASSESS PT. ORDER FOR STAT CT BRAIN. NARCAN X1.
[2018-10-30] MEDS: Naloxone 0.4 MG/ML Syringe IV (14:50)
--- NOTE | 2018-10-30 14:55 | CT_ITS ---
STUDY: CTA OF THE BRAIN REASON FOR EXAM: Female, 67 years old. New onset of right-sided weakness, lethargy RADIATION DOSAGE (If Supplied By Facility): CTDIvol = ( 16.87 ) mGy, DLP = ( 637.14 ) mGycm TECHNIQUE: CT angiography was performed with a multi-detector CT scanner. Data acquisition was obtained from the skull base through the vertex following intravenous administration of 100 IV Isovue 300. MIP images were reconstructed from the axial data set. Post-processing of the angiographic images was performed, with multiplanar reformation and 3D reconstruction. Individualized dose optimization techniques were used for this CT. COMPARISON: None. FINDINGS: Normal bilateral petrous carotid arteries. Normal right cavernous carotid artery with a normal supraclinoid bifurcation. Normal left cavernous carotid artery with a normal supraclinoid bifurcation. Normal right A1 segments of the anterior cerebral artery. Normal left A1 segments of the anterior cerebral artery. Normal intact anterior communicating artery (ACOM). Normal bilateral A2 segments of the anterior cerebral arteries. Normal right M1 and M2 segments of the middle cerebral arteries, with a normal M1 bifurcation. Normal left M1 and M2 segments of the middle cerebral arteries, with a normal M1 bifurcation. 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 There is non-visualization of the left posterior communicating artery (PCOM). There is a small atretic right vertebral artery with a dominant left vertebral artery. Normal basilar artery with a normal basilar bifurcation. The visualized bilateral superior cerebellar (SCA) arteries are normal. Normal bilateral P1, P2 and visualized P3 segments of the posterior cerebral arteries. There is no demonstrated aneurysm of the solomon of [place]. There is no demonstrated abnormality of the visualized brain. CT/CTA Head W/WO Contrast IMPRESSION: Normal solomon of [place] without a demonstrated aneurysm or hemodynamically significant stenosis. Electronically Signed: Arthur Figueroa MD at 15:34 EDT , Service support ,
--- NOTE | 2018-10-30 14:55 | CT_ITS ---
STUDY: CTA NECK WITH CONTRAST REASON FOR EXAM: Female, 67 years old. Set of right-sided weakness and lethargy RADIATION DOSAGE (If Supplied By Facility): CTDIvol = ( 16.87 ) mGy, DLP = ( 637.14 ) mGycm TECHNIQUE: CT angiography with multi-detector data acquisition was performed from the aortic arch to the skull base following intravenous administration of 100 IV Isovue 370. MIP images were reconstructed from the axial data set. Post-processing of the angiographic images was performed, with multiplanar reformation and 3D reconstruction. Individualized dose optimization techniques were used for this CT. COMPARISON: 02/02/2017. FINDINGS: Mildly enlarged lymph node right posterolateral to the trachea with short axis of 9 mm has increased in size since 2017. AORTIC ARCH: Normal visualized aortic arch. Normal origins of the brachiocephalic, left common carotid, and left subclavian arteries. RIGHT CAROTID ARTERIES: Normal right common carotid artery (CCA). Normal right common carotid bulb. Normal origin of the right internal carotid (ICA) artery without a hemodynamically significant stenosis. Normal visualized cervical portion of the right internal carotid artery. Normal origin of the right external carotid artery (ECA). LEFT CAROTID ARTERIES: Normal left common carotid artery (CCA). Normal left common carotid bulb. Normal origin of the left internal carotid (ICA) artery without a hemodynamically significant stenosis. Normal visualized cervical portion of the left internal carotid artery. Normal origin of the left external carotid artery (ECA). VERTEBRAL ARTERIES: There is enhancement within the bilateral vertebral arteries with a small right vertebral artery, and a dominant left vertebral artery. Degenerative and operative changes of the cervical spine noted. CT/CTA Neck W/WO Contrast IMPRESSION: 1. Normal bilateral cervical carotid and vertebral arteries. 2. 9 mm superior paratracheal lymph node has increased in size since 2017. Electronically Signed: Arthur Figueroa MD at 15:39 EDT , Service support ,
--- NOTE | 2018-10-30 14:57 | NURSING ---
PT TO CT VIA BED
--- NOTE | 2018-10-30 15:29 | PN_ITS ---
Patient Problems: Active and Suspected Problems Closed left hip fracture (Acute) Lethargy (Acute) Weakness (Acute) Subjective: Postoperative day #1 Called by Nursing to evaluate pt for lethargy. She is POD # 1 ORIF of a left hip fracture All events of the past 24 hours of been reviewed. T-max is 99.7 and the current temperature is 97.4. Blood pressure and heart rate are stable. The heart rate is in the high 90s. It was in the low 100s in the recovery room yesterday. She is currently 93% saturated on a 6 L nasal cannula. Fluid balance since admission is +[phone]. All lab was personally reviewed. White blood cell count is 10.0 and hemoglobin is 9.9. Platelets are within normal limits. The be MP is unremarkable. Blood sugars have been high but are all less than 200. She is on a sliding insulin scale. Chest expiratory per my review shows increased pulmonary vascular congestion. The radiologist reported a possible infiltrate in the left midlung versus atelectasis. PE Lethargic, can not stay awake to talk with me. NAD Mucous membranes are dry No JVD Lungs-clear to auscultation anterior and lateral Heart-regular rate and rhythm, no gallop, no rub, normal S1, normal S2 Abdomen-soft, nontender, nondistended, bowel sounds present She opened her eyes when I called her name but kept nodding off to sleep. she is very lethargic. Had Oxy IR 10 mg at 0818 this AM. Pulse ox on 4 LPM was She was not moving her R arm and the nursing program manager strength was week. When I held both arms up and asked her to keep them up the Right arm dropped immediately to the bed but she held the left up for a few sec. She is unable to lift the left leg due to surgery. When I lifted the Right leg and asked her to keep it up it dropped immediately to the bed. Babinski's are downgoing She was given Narcan and woke up a little but was still weak on the R side. No aphasia. The CT brain was negative and the results of the CTA of the head and neck are also negative. Apparently she was lethargic through the night and was not given any pain medication. No hx of YUDITH Denies CP and also denies SOB, does not recall why she is in the hospital stat lab showed a troponin of 0.813 EKG shows T wave inversions in the anterior precordial leads lateral leads. She has a Q wave in lead III but not in II or aVF. There is no ST segment el evation. She is in normal sinus rhythm. Impressions 1. Left hip fracture secondary to a mechanical fall-postoperative day #1 2. Diabetes mellitus type 2. This is a new diagnosis. Hemoglobin A1c is 8.9. All blood sugars are now less than 200 and she is on a sliding insulin scale 3. Hypokalemia-resolved 4. Anxiety/depression 5. Former smoker and quit in approximately 1994. 6. Strong family history of dementia on Aricept - she herself is very independent and lives by 7. Extreme lethargy with right-sided weakness-CT scan of the brain is negative and CTAs of the head and neck are unremarkable. The patient was seen by Dr. Liu and he recommends an MRI be done. check a UA and urine culture change the OXY IR to 5 mg Q 4 H PRN DC Lovenox and start aspirin 300 mg rectally daily. Will transition to 81 mg p.o. twice daily when she is more awake and able to have a bedside swallowing eval. if she passes the swallowing eval will restart p.o. meds and 1800 calorie diet serial CE's Check a BNP now PT/OT/ST stroke protocol initiated and the pt was transferred to ICU Dr. Liu is on consult - Physical Exam Vital Signs Temp Pulse Resp BP Pulse Ox 97.4 F L 88 16 132/52 H 87 10/30/18 14:00 10/30/18 14:00 10/30/18 14:00 10/30/18 14:00 10/30/18 14:00 Oxygen Flow Rate (L/min) 4 Oxygen Delivery Method Nasal Cannula Weight: 154 lb 15.759 oz Body Mass Index (BMI) 24.3 Finger Stick Blood Glucose 166 Intake and Output for Last 24 Hours 10/28/18 10/29/18 10/30/18 23:59 23:59 23:59 Intake Total 452 / 452 2279 / 2279 2389 / 2389 Output Total 100 / 100 430 / 430 350 / 350 Balance 352 / 352 1849 / 1849 2038 Microbiology Past 72 Hours 10/29/18 12:23 Urine Culture - Preliminary Urine, Random Culture exhibits no growth. Laboratory Tests Past 24 Hrs 10/30/18 10/30/18 07:17 07:17 WBC 10.0 RBC 3.19 L Hgb 9.9 L Hct 31.1 L MCV 97.5 MCH 31.0 MCHC 31.8 L RDW 13.4 RDW Differential 47.7 H Plt Count 228 MPV 10.0 Immature Gran % (Auto) 0.100 Neut % (Auto) 78.0 H Lymph % (Auto) 11.9 L [place] % (Auto) 8.7 Eos % (Auto) 1.1 Baso % (Auto) 0.2 Absolute Neuts (auto) 7.8 H Absolute Lymphs (auto) 1.19 Total Counted Not Reportable Sodium 142 Potassium 4.2 Chloride 111 H Carbon Dioxide 27.0 Anion Gap 4 L BUN 15 Creatinine 0.57 Estim Creat Clear Calc 49.70 Est GFR (MDRD) Af Amer 134 Est GFR (MDRD) Non-Af 111 BUN/Creatinine Ratio 26.2 H Glucose 191 H Calcium 8.1 L Phosphorus 2.9 Magnesium 1.9 POC Glucose 10/30/18 10/30/18 10/29/18 11:36 06:42 23:03 POC Glucose 183 H 190 H 187 H 10/29/18 17:07 POC Glucose 166 H Medical Necessity - Tobacco Use Smoking Status: Former smoker - Patient quit approximately 25 years prior to current presentation. Tobacco Use: Non-smoker Assessment/Plan All Active Problems Closed left hip fracture (Acute) Lethargy (Acute) Weakness (Acute) HTN (hypertension) (Acute) Frequent unifocal PVCs (Acute) Chest pain (Acute) Code Visit Inpatient E&M: 45738 Subs Hosp L3
--- NOTE | 2018-10-30 15:34 | NURSING ---
REPORT TO MICHELE BLANCO IN ICU
[2018-10-30] MEDS: 0.9% Normal Saline 1,000 ML 500 ML IV (15:52)
--- NOTE | 2018-10-30 16:19 | EKG12_ITS ---
Test Reason : ELEVATED TROPONIN Blood Pressure : / mmHG Vent. Rate : 100 BPM Atrial Rate : 100 BPM P-R Int : 166 ms QRS Dur : 082 ms QT Int : 338 ms P-R-T Axes : 049 027 001 degrees QTc Int : 436 ms Normal sinus rhythm Low voltage QRS Borderline ECG When compared with ECG of 30-OCT-2018 16:48, MANUAL COMPARISON REQUIRED, DATA IS UNCONFIRMED Confirmed by JOSE OROSCO, QUIRINO ([id number]), senior technical editor ARSH REID ([id number] on 11/03/2018 2:01:37 PM Referred By: FIDELIA Confirmed By:QUIRINO GARCIA MD
--- NOTE | 2018-10-30 16:25 | RAD_ITS ---
STUDY: X-RAY CHEST REASON FOR EXAM: Female, 67 years old. Shortness of breath TECHNIQUE: Single frontal view of the chest. COMPARISON: January 05, 2018 FINDINGS: Increased interstitial markings in the left perihilar region in particular. Left lower lobe subsegmental atelectasis or airspace disease. The lungs are clear and expanded. There is no demonstrated pleural abnormality. Normal size heart. Normal mediastinum and tamia. Normal visualized pulmonary arteries. Normal visualized aortic arch and descending thoracic aorta. Normal visualized thoracic spine. Normal visualized ribs, clavicles, and shoulders. There is no demonstrated abnormality of the visualized soft tissue structures of the upper abdomen. RAD/Chest 1 View (Portable) IMPRESSION: Left lung airspace disease versus subsegmental atelectasis Electronically Signed: Efrain Hewitt MD at 17:02 EDT , Service support ,
[2018-10-30 17:46] LABS: Bedside Glucose 146 mg/dL (70-110)
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
--- NOTE | 2018-10-30 18:57 | MRI_ITS ---
STUDY: MRI BRAIN WITHOUT CONTRAST REASON FOR EXAM: Female, 67 years old. Right-sided weakness status post ORIF left hip. TECHNIQUE: Standardized multiplanar fat and water weighted pulse sequences were obtained. COMPARISON: CTA and CT brain October 30, 2018 FINDINGS: Normal size of the ventricles and extra-axial spaces for the patient's age. There are a limited number of small white matter hyperintensities, distributed throughout the deep white matter tracts of the cerebral hemispheres, consistent with mild chronic white matter ischemic changes. Bilateral punctate foci of possible restricted diffusion to small to characterize. Normal bilateral basal ganglia. Normal thalami. There is no extra-axial fluid accumulation. Normal flow voids within the major intracranial circulation suggesting patency by spin echo criteria. Normal sella turcica, pituitary gland, infundibular stalk, optic chiasm and hypothalamus. Normal tectal plate and pineal gland. Normal midbrain, manoj and medulla. Normal cerebellum. Normal basal cisterns. Normal bilateral temporal bones. Normal bilateral internal auditory canals. No demonstrated orbital abnormality, within the constraints of a routine brain study. Normal visualized paranasal sinuses. Normal calvarium and skull base. Normal visualized soft tissue structures. Normal visualized upper cervical spine. MRI/Brain without Contrast IMPRESSION: Possible bilateral punctate embolic infarctions, acute versus subacute. Follow-up recommended. Electronically Signed: Efrain Hewitt MD at 22:18 EDT , Service support ,
[2018-10-30 19:44] LABS: BNP,B-Type NATRIURETIC PEPTIDE 349.1 pg/mL (0-100)
[2018-10-30] MEDS: 0.9% Normal Saline 1,000 ML 40 ML IV (22:13)
[2018-10-30 22:21] LABS: Bedside Glucose 160 mg/dL (70-110)
[2018-10-30 22:42] LABS: Mucous, Urine 0 SEEN /hpf (<or=2+)
[2018-10-30 22:53] LABS: Color, Urine Yellow (Yellow); Glucose, Dipstick 100 mg/dl (Normal); Leukocyte Esterase-Dipstick 25 /ul (Negative); Nitrite-Dipstick Negative (Negative); Occult Blood-Urine 10 /ul (Negative); Protein-Dipstick 15 mg/dl (Negative); Urine Bilirubin Dipstick Negative (Negative); Urine Clarity Clear (Clear); Urine Urobilinogen Normal (Normal)
[2018-10-30 22:58] LABS: Ketone-Dipstick 150 mg/dl (Negative)
[2018-10-30 23:10] LABS: Allen Test POS; Base Excess -3 mmol/L (-2 to +2); Bicarbonate 22.8 mmol/L (22-26); Blood Gas Specimen Type ART; FI02 50; PO2 55 mmHG (75-100); SITE L Radial; SO2 86 % (95-99); Time Given 2305; Total Carbon Dioxide 24 mmol/L; pCO2 42.3 mmHg (35-45); pH 7.34 (7.35-7.45)
[2018-10-30 23:11] LABS: Red Blood Cells-Urine 0-5 SEEN /hpf (0-5); White Blood Cells 0-5 SEEN /hpf (0-5)
[2018-10-30 23:12] LABS: Squamous Epithelial Cells - UA 0-5 SEEN /hpf (5-10)
[2018-10-30 23:21] LABS: Bacteria RARE /hpf (None Seen); Calcium Oxalate Crystals Ur 4+ /hpf (<or=2+)
[2018-10-31] VITALS (23 sets, daily range): BP systolic 137–157; BP diastolic 52–84; PULSE 82–98; RESP 14–25; TEMP 36.6–37.2; O2SAT 90–98
[2018-10-31 06:17] LABS: Cholesterol 130 mg/dL (200); High Density Lipoprotein 35 mg/dL; Triglycerides 106 mg/dL; Very Low Density Lipoprotein 21 mg/dL (5-40)
[2018-10-31] MEDS: Insulin Lispro 100 UNIT/ML INSULN.PEN SC ×3 (07:08→17:33)
[2018-10-31 07:11] LABS: Bedside Glucose 164 mg/dL (70-110)
--- NOTE | 2018-10-31 07:13 | EKG12_ITS ---
Test Reason : NSTEMI Blood Pressure : / mmHG Vent. Rate : 094 BPM Atrial Rate : 094 BPM P-R Int : 162 ms QRS Dur : 082 ms QT Int : 348 ms P-R-T Axes : 050 001 014 degrees QTc Int : 435 ms Normal sinus rhythm Normal ECG When compared with ECG of 30-OCT-2018 16:49, MANUAL COMPARISON REQUIRED, DATA IS UNCONFIRMED Confirmed by JOSE OROSCO, QUIRINO ([id number]), editor map ARSH REID ([id number]) on 11/03/2018 2:01:24 PM Referred By: FIDELIA Confirmed By:QUIRINO GARCIA MD
--- NOTE | 2018-10-31 07:15 | PN_ITS ---
Patient Problems: Active and Suspected Problems Closed left hip fracture (Acute) Lethargy (Acute) Weakness (Acute) Subjective: Postoperative day #2 Patient was transferred to the intensive care unit on 10/29/2018 because of extreme lethargy, hypoxia and right-sided weakness. CT scan of the brain was negative and CTAs of the head and neck showed no significant stenosis. MRI of the brain was reported as possible bilateral punctate embolic infarctions. They were too small to characterize. Dr. Liu recommended continued aspirin and statins. Afebrile since admission. Vital signs are stable. She is currently 96% saturated on a 6 L nasal cannula. All lab was personally reviewed. LDL cholesterol is 74. HDL is 35. Troponin at the time of transfer was 0.813 and trended down to 0.76. UA showed 0-5 white blood cells and was negative for nitrites. It was positive for ketones, protein and glucose. Blood sugars are adequately controlled on a sliding insulin scale. She is much more alert today and able to follow commands and answer questions. She is oriented x3. She tells me she feels a little short of breath. Denies chest pain. She is not coughing. She does have some cramping in her abdomen but has not had a bowel movement since admission. Her primary complaint is hip pain and she has not received any medication through the night due to the lethargy and hypoxia. She was on a Ventimask while sleeping last night. Telemetry shows paroxysmal AF with RVR Objective: Physical Exam alert today and oriented X 3, appropriate Mucous membranes are dry No JVD, lying almost flat in bed with no tachypnea and no conversational dyspnea Lungs-clear to auscultation anterior and lateral, diminished Heart-regular rate and rhythm, no gallop, no rub, normal S1, normal S2, no MM. Telemetry - PAF with RVR Abdomen-soft, nontender, nondistended, bowel sounds present 5/5 strength in the RUE today. No facial asymmetry. Still not able to move the RLE, even side to side - Physical Exam Vital Signs Temp Pulse Resp BP Pulse Ox 98.2 F 92 21 H 151/78 H 96 10/31/18 05:12 10/31/18 06:12 10/31/18 06:12 10/31/18 06:12 10/31/18 06:12 Oxygen Flow Rate (L/min) 6 Oxygen Delivery Method Nasal Cannula Weight: 157 lb 10.088 oz Body Mass Index (BMI) 24.3 Finger Stick Blood Glucose 166 Intake and Output for Last 24 Hours 10/29/18 10/30/18 10/31/18 23:59 23:59 23:59 Intake Total 2279 / 2279 3743 / 3743 598 / 598 Output Total 430 / 430 650 / 650 700 / 700 Balance 1849 / 1849 3093 / 3093 -102 / -102 Microbiology Past 72 Hours 10/29/18 12:23 Urine Culture - Preliminary Urine, Random Culture exhibits no growth. Laboratory Tests Past 24 Hrs 10/30/18 10/30/18 10/30/18 07:17 07:17 15:47 WBC 10.0 RBC 3.19 L Hgb 9.9 L Hct 31.1 L MCV 97.5 MCH 31.0 MCHC 31.8 L RDW 13.4 RDW Differential 47.7 H Plt Count 228 MPV 10.0 Immature Gran % (Auto) 0.100 Neut % (Auto) 78.0 H Lymph % (Auto) 11.9 L [place] % (Auto) 8.7 Eos % (Auto) 1.1 Baso % (Auto) 0.2 Absolute Neuts (auto) 7.8 H Absolute Lymphs (auto) 1.19 Total Counted Not Reportable Specimen Type Sample Site pH Bicarbonate Actual POC Total CO2 Base Excess O2 Saturation O2 % ABG pCO2 ABG pO2 [place] Test O2 Delivery Device Blood Gas Notified Whom Blood Gas Notified Time Sodium 142 Potassium 4.2 Chloride 111 H Carbon Dioxide 27.0 Anion Gap 4 L BUN 15 Creatinine 0.57 Estim Creat Clear Calc 49.70 Est GFR (MDRD) Af Amer 134 Est GFR (MDRD) Non-Af 111 BUN/Creatinine Ratio 26.2 H Glucose 191 H Calcium 8.1 L Phosphorus 2.9 Magnesium 1.9 Troponin I 0.813 H* B-Natriuretic Peptide Triglycerides Cholesterol LDL Cholesterol VLDL Cholesterol HDL Cholesterol Urine Color Urine Clarity Urine pH Ur Specific [place] Urine Protein Urine Glucose (UA) Urine Ketones Urine Occult Blood Urine Nitrite Urine Bilirubin Urine Urobilinogen Ur Leukocyte Esterase Urine RBC Urine WBC Ur Squamous Epith Cells Calcium Oxalate Crystal Urine Bacteria Urine Mucus 10/30/18 10/30/18 10/30/18 19:10 19:10 21:45 WBC RBC Hgb Hct MCV MCH MCHC RDW RDW Differential Plt Count MPV Immature Gran % (Auto) Neut % (Auto) Lymph % (Auto) [place] % (Auto) Eos % (Auto) Baso % (Auto) Absolute Neuts (auto) Absolute Lymphs (auto) Total Counted Specimen Type Sample Site pH Bicarbonate Actual POC Total CO2 Base Excess O2 Saturation O2 % ABG pCO2 ABG pO2 [place] Test O2 Delivery Device Blood Gas Notified Whom Blood Gas Notified Time Sodium Potassium Chloride Carbon Dioxide Anion Gap BUN Creatinine Estim Creat Clear Calc Est GFR (MDRD) Af Amer Est GFR (MDRD) Non-Af BUN/Creatinine Ratio Glucose Calcium Phosphorus Magnesium Troponin I 0.775 H* B-Natriuretic Peptide 349.1 H Triglycerides Cholesterol LDL Cholesterol VLDL Cholesterol HDL Cholesterol Urine Color Yellow Urine Clarity Clear Urine pH 5.0 Ur Specific [place] 1.020 Urine Protein 15 H Urine Glucose (UA) 100 H Urine Ketones 150 H Urine Occult Blood 10 H Urine Nitrite Negative Urine Bilirubin Negative Urine Urobilinogen Normal Ur Leukocyte Esterase 25 H Urine RBC 0-5 SEEN Urine WBC 0-5 SEEN Ur Squamous Epith Cells 0-5 SEEN Calcium Oxalate Crystal 4+ Urine Bacteria RARE Urine Mucus 0 SEEN 10/30/18 10/30/18 10/31/18 22:10 23:07 05:45 WBC RBC Hgb Hct MCV MCH MCHC RDW RDW Differential Plt Count MPV Immature Gran % (Auto) Neut % (Auto) Lymph % (Auto) [place] % (Auto) Eos % (Auto) Baso % (Auto) Absolute Neuts (auto) Absolute Lymphs (auto) Total Counted Specimen Type ART Sample Site L Radial pH 7.34 L Bicarbonate Actual 22.8 POC Total CO2 24 Base Excess -3 L O2 Saturation 86 L O2 % 50 ABG pCO2 42.3 ABG pO2 55 L Jeyson Test POS O2 Delivery Device Vent Mask Blood Gas Notified Whom ICU MD Blood Gas Notified Time 2305 Sodium Potassium Chloride Carbon Dioxide Anion Gap BUN Creatinine Estim Creat Clear Calc Est GFR (MDRD) Af Amer Est GFR (MDRD) Non-Af BUN/Creatinine Ratio Glucose Calcium Phosphorus Magnesium Troponin I 0.760 H* B-Natriuretic Peptide Triglycerides 106 Cholesterol 130 LDL Cholesterol 74 VLDL Cholesterol 21 HDL Cholesterol 35 L Urine Color Urine Clarity Urine pH Ur Specific [place] Urine Protein Urine Glucose (UA) Urine Ketones Urine Occult Blood Urine Nitrite Urine Bilirubin Urine Urobilinogen Ur Leukocyte Esterase Urine RBC Urine WBC Ur Squamous Epith Cells Calcium Oxalate Crystal Urine Bacteria Urine Mucus POC Glucose 10/30/18 10/30/18 10/30/18 22:16 17:20 11:36 POC Glucose 160 H 146 H 183 H Medical Necessity - Tobacco Use Smoking Status: Former smoker - Patient quit approximately 25 years prior to current presentation. Tobacco Use: Non-smoker Assessment/Plan All Active Problems Closed left hip fracture (Acute) Lethargy (Acute) Weakness (Acute) HTN (hypertension) (Acute) Frequent unifocal PVCs (Acute) Chest pain (Acute) Impressions 1. Left hip fracture secondary to a mechanical fall - S/P ORIF on 10/[address] Pollock 2. Diabetes mellitus type II. This is a new diagnosis. Hemoglobin A1c is 8.9. 3. Hypokalemia - resolved 4. Anxiety/depression 5. Former smoker and quit in approximately 1994. 6. Strong family history of dementia on Aricept 7. suspected CVA - Abnormal MRI with possible emboli BL CVA's in a pt having PAF with RVR 8. NSTEMI Supplement the MAG and the K to keep them at 2 and 4 respectively Transfer to PCU today Consult cardiology ECHO tomorrow Add Cardizem to help keep her in a SR Change the ASA to 81 mg BID CTA of the chest today to r/o PE Recheck the lab in the AM If the CTA is + will need to discuss with Dr. Pollock whether she can be anticoagulated. Dr. Jerez has actually seen this pt in the past and she has a known hx of PAF. She has had a cath in the past. Recommends cardizem to stabilize the rhythm. Code Visit Inpatient E&M: [id number] Subs Hosp L3
[2018-10-31 07:38] LABS: Anion Gap 8 (5-15); BUN 7 mg/dL (7-18); BUN/Creat Ratio 19.9 RATIO (10-20); Chloride 108 mmol/L (98-107); Creatinine, Serum 0.35 mg/dL (0.55-1.02); EST Glomerular Filtration Rate 195 mL/min (>60); Est Glom Filt Rate - Afr Amer 236 mL/min (>60); Glucose 160 mg/dL (74-106); Magnesium 1.8 mg/dL (1.6-2.6); Potassium 3.8 mmol/L (3.5-5.1); Sodium Level 141 mmol/L (136-145)
[2018-10-31 08:05] LABS: Absolute Lymphocyte Count 0.98 X10^3/ul (0.83-4.51); Absolute Neutrophil Count 8.2 X10^3/uL (2.0-7.7); Basophil# 0.02 X10^3/uL; Basophil% 0.2 % (0-1); Eosinophil# 0.15 X10^3/uL; Eosinophils% 1.5 % (0-5); Hematocrit 29.9 % (37-47); Hemoglobin 9.7 g/dl (12.0-15.0); Lymphocyte # 0.98 X10^3/ul (4.0); Lymphocyte % 9.7 % (19-41); Mean Corp Hgb Conc 32.4 g/gl (32-36); Mean Corpuscular Hgb 30.6 pg (27.0-32.0); Mean Corpuscular Volume 94.3 fL (81-99); Mean Platelet Vol. 10.2 fl (6.2-12.0); Monocyte# 0.72 X10^3/uL; Monocyte% 7.1 % (0-10); Neutrophil # 8.23 X10^3/uL (2.7-7.7); Neutrophil % 81.3 % (47-70); POSITIVE COUNT NO; POSITIVE DIFFERENTIAL NO; POSITIVE MORPHOLOGY NO; Platelet Count 214 K/mm3 (150-450); RBC Distribution Width SD 45.1 fl (35.1-43.9); Red Blood Count 3.17 M/mm3 (4.2-5.4); White Blood Count 10.1 K/mm3 (4.4-11.0)
--- NOTE | 2018-10-31 08:30 | ECHOD_ITS ---
Reason For Study: NSTEMI Procedure This was a 2D Doppler, Color Flow transthoracic echocardiogram. Exam performed portable in patient room. Left Ventricle Normal LV size. Left ventricular systolic function is normal. The estimated ejection fraction is 65 %. Stage 1 diastolic dysfunction. No regional wall motion abnormalities noted. Right Ventricle Normal RV size. Mildly decreased right ventricular systolic function. Atria Normal left atrium. Normal right atrium. Mitral Valve Normal mitral valve. Tricuspid Valve Normal tricuspid valve. Moderate (2+) tricuspid valve insufficiency. Right ventricular systolic pressure estimated to be 70 mmHg. Moderate pulmonary hypertension. Pulmonic Valve Normal pulmonic valve. Great Vessels Normal aortic root. The pulmonary artery is normal size. Normal inferior vena cava. Pericardium/Pleural No pericardial effusion. MMode/2D Measurements & Calculations LVIDd: 4.0 cm IVSd: 1.1 cm Ao root diam: 3.1 cm LVIDs: 2.4 cm LVPWd: 1.4 cm LA dimension: 2.8 cm FS: 40.9 % LAV(MOD-sp2): 47.2 ml Time Measurements MV dec time: 0.26 sec Doppler Measurements & Calculations MV E max rod: 76.0 cm/sec Lat Peak E' Rod: 7.0 cm/sec Med Peak E' Rod: 14.6 cm/sec MV A max rod: 117.0 cm/sec E/E' lat: 10.8 E/E' med: 5.2 MV E/A: 0.65 MV V2 max: 148.3 cm/sec MV P1/2t max rod: 80.9 cm/sec Ao V2 max: 154.1 cm/sec MV max P.8 mmHg MV P1/2t: 62.0 msec Ao max P.5 mmHg MV V2 mean: 66.3 cm/sec MV dec slope: 381.9 cm/sec2 MV mean P.2 mmHg MV V2 VTI: 22.8 cm MVA(P1/2t): 3.5 cm2 LV V1 max: 126.8 cm/sec TR max rod: 420.2 cm/sec LV V1 max P.4 mmHg TR max P.6 mmHg Interpretation Summary Normal LV size. Left ventricular systolic function is normal. The estimated ejection fraction is 65 %. Stage 1 diastolic dysfunction. Mildly decreased right ventricular systolic function Right ventricular systolic pressure estimated to be 70 mmHg. Moderate pulmonary hypertension. Ordering Physician: Jolene Fox Performed By: Rik Shaikh RCS
--- NOTE | 2018-10-31 08:43 | CT_ITS ---
STUDY: CTA CHEST REASON FOR EXAM: Female, 67 years old. Status post left hip surgery, hypoxia. RADIATION DOSAGE (If Supplied By Facility): CTDIvol = ( 11.93 ) mGy, DLP = ( 458.87 ) mGycm TECHNIQUE: The examination was performed with the intravenous administration of 100 IV Isovue 300. Post-processing of the angiographic images was performed, with multiplanar reformation and 3D reconstruction. Individualized dose optimization techniques were used for this CT. COMPARISON: None. FINDINGS: Normal enhancement of the main pulmonary artery and left pulmonary arteries. There are filling defects in the distal right main pulmonary artery extending to the right lower lobe branches. Few filling defects are seen in the right upper lobe branches. The examination is markedly limited due to significant artifacts. There is mild atherosclerotic tortuosity of the aortic arch and descending thoracic aorta. There is no demonstrated aortic dissection. The heart is mildly enlarged. There is no evidence of pericardial effusion. Normal mediastinum. Normal hilar regions. Normal visualized trachea and bronchi. The lungs are well expanded. There is an infiltrate in the left lower lobe. There are atelectatic changes in both lower lobes. There are small bilateral pleural effusions. Normal chest wall structures. There are degenerative changes of thoracic spine. Normal visualized upper abdomen. CT/CTA Chest W/WO Contrast IMPRESSION: 1. Pulmonary emboli in the distal right main pulmonary artery extending to the right lower lobe pulmonary artery and distal branches. 2. Left lower lobe infiltrate and atelectatic changes in both lower lobes. 3. Small bilateral pleural effusions. N.B. : The above information has been verbally conveyed by Roosevelt Dasilva MD to Chris Razo RN, RN, on 10/31/2018 10:28:11 (ET). Electronically Signed: Roosevelt Dasilva MD at 10:31 EDT Tel , Service support ,
[2018-10-31] MEDS: Famotidine 20 MG Tablet PO (09:29)
[2018-10-31] MEDS: Acetaminophen 500 MG Tablet 1000 MG PO ×3 (09:29→21:33)
[2018-10-31] MEDS: Calcium Carb/Vitamin D 1 TABLET Tablet PO ×2 (09:30→17:31)
[2018-10-31] MEDS: Senna/Docusate Sodium 1 Tablet 2 TABLET PO ×2 (09:30→21:33)
[2018-10-31] MEDS: Escitalopram Oxalate 10 MG Tablet PO (09:31)
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
[2018-10-31] MEDS: Magnesium Oxide 400 MG Tablet PO (11:22)
[2018-10-31] MEDS: Aspirin 81 MG TAB.CHEW PO (11:22)
[2018-10-31 11:51] LABS: Bedside Glucose 185 mg/dL (70-110)
[2018-10-31 12:46] LABS: Partial Thromboplast Time 34.9 Seconds (24.1-36.2)
--- NOTE | 2018-10-31 13:15 | PCM.PN.ORT ---
Patient Problems: Active and Suspected Problems Closed left hip fracture (Acute) Lethargy (Acute) Weakness (Acute) Troponin I above reference range (Acute) - Physical Exam General: Alert, Oriented x3, Cooperative Extremities: - - LLE: Proximal dressing is 50% saturated. Distal dressing is clean dry and intact Sensations intact to light touch saphenous, sural, superficial peroneal, deep peroneal, and tibial distributions Motors intact EHL, DF, PF calves are soft and supple Vital Signs Temp Pulse Resp BP Pulse Ox 98.9 F 96 16 152/71 H 93 10/31/18 12:11 10/31/18 12:11 10/31/18 12:11 10/31/18 12:11 10/31/18 12:11 Oxygen Flow Rate (L/min) 5 Oxygen Delivery Method Nasal Cannula Weight: 157 lb 10.088 oz Body Mass Index (BMI) 24.3 Finger Stick Blood Glucose 166 Intake and Output for Last 24 Hours 10/29/18 10/30/18 10/31/18 23:59 23:59 23:59 Intake Total 2279 / 2279 3743 / 3743 1003 / 1003 Output Total 430 / 430 650 / 650 1050 / 1050 Balance 1849 / 1849 3093 / 3093 -47 / -47 Microbiology Past 72 Hours 10/29/18 12:23 Urine Culture - Final Urine, Random Culture exhibits no growth. Laboratory Tests Past 24 Hrs 10/30/18 10/30/18 10/30/18 15:47 19:10 19:10 WBC RBC Hgb Hct MCV MCH MCHC RDW RDW Differential Plt Count MPV Immature Gran % (Auto) Neut % (Auto) Lymph % (Auto) [place] % (Auto) Eos % (Auto) Baso % (Auto) Absolute Neuts (auto) Absolute Lymphs (auto) Total Counted APTT Specimen Type Sample Site pH Bicarbonate Actual POC Total CO2 Base Excess O2 Saturation O2 % ABG pCO2 ABG pO2 Jeyson Test O2 Delivery Device Blood Gas Notified Whom Blood Gas Notified Time Sodium Potassium Chloride Carbon Dioxide Anion Gap BUN Creatinine Estim Creat Clear Calc Est GFR (MDRD) Af Amer Est GFR (MDRD) Non-Af BUN/Creatinine Ratio Glucose Calcium Phosphorus Magnesium Troponin I 0.813 H* 0.775 H* B-Natriuretic Peptide 349.1 H Triglycerides Cholesterol LDL Cholesterol VLDL Cholesterol HDL Cholesterol Urine Color Urine Clarity Urine pH Ur Specific [place] Urine Protein Urine Glucose (UA) Urine Ketones Urine Occult Blood Urine Nitrite Urine Bilirubin Urine Urobilinogen Ur Leukocyte Esterase Urine RBC Urine WBC Ur Squamous Epith Cells Calcium Oxalate Crystal Urine Bacteria Urine Mucus 10/30/18 10/30/18 10/30/18 21:45 22:10 23:07 WBC RBC Hgb Hct MCV MCH MCHC RDW RDW Differential Plt Count MPV Immature Gran % (Auto) Neut % (Auto) Lymph % (Auto) [place] % (Auto) Eos % (Auto) Baso % (Auto) Absolute Neuts (auto) Absolute Lymphs (auto) Total Counted APTT Specimen Type ART Sample Site L Radial pH 7.34 L Bicarbonate Actual 22.8 POC Total CO2 24 Base Excess -3 L O2 Saturation 86 L O2 % 50 ABG pCO2 42.3 ABG pO2 55 L Jeyson Test POS O2 Delivery Device Vent Mask Blood Gas Notified Whom ICU Blood Gas Notified Time 2305 Sodium Potassium Chloride Carbon Dioxide Anion Gap BUN Creatinine Estim Creat Clear Calc Est GFR (MDRD) Af Amer Est GFR (MDRD) Non-Af BUN/Creatinine Ratio Glucose Calcium Phosphorus Magnesium Troponin I 0.760 H* B-Natriuretic Peptide Triglycerides Cholesterol LDL Cholesterol VLDL Cholesterol HDL Cholesterol Urine Color Yellow Urine Clarity Clear Urine pH 5.0 Ur Specific [place] 1.020 Urine Protein 15 H Urine Glucose (UA) 100 H Urine Ketones 150 H Urine Occult Blood 10 H Urine Nitrite Negative Urine Bilirubin Negative Urine Urobilinogen Normal Ur Leukocyte Esterase 25 H Urine RBC 0-5 SEEN Urine WBC 0-5 SEEN Ur Squamous Epith Cells 0-5 SEEN Calcium Oxalate Crystal 4+ Urine Bacteria RARE Urine Mucus 0 SEEN 10/31/18 10/31/18 10/31/18 05:45 05:45 05:45 WBC 10.1 RBC 3.17 L Hgb 9.7 L Hct 29.9 L MCV 94.3 MCH 30.6 MCHC 32.4 RDW 13.0 RDW Differential 45.1 H Plt Count 214 MPV 10.2 Immature Gran % (Auto) 0.200 Neut % (Auto) 81.3 H Lymph % (Auto) 9.7 L [place] % (Auto) 7.1 Eos % (Auto) 1.5 Baso % (Auto) 0.2 Absolute Neuts (auto) 8.2 H Absolute Lymphs (auto) 0.98 Total Counted Not Reportable APTT Specimen Type Sample Site pH Bicarbonate Actual POC Total CO2 Base Excess O2 Saturation O2 % ABG pCO2 ABG pO2 Jeyson Test O2 Delivery Device Blood Gas Notified Whom Blood Gas Notified Time Sodium 141 Potassium 3.8 Chloride 108 H Carbon Dioxide 25.0 Anion Gap 8 BUN 7 Creatinine 0.35 L Estim Creat Clear Calc 49.70 Est GFR (MDRD) Af Amer 236 Est GFR (MDRD) Non-Af 195 BUN/Creatinine Ratio 19.9 Glucose 160 H Calcium 8.0 L Phosphorus 2.0 L Magnesium 1.8 Troponin I B-Natriuretic Peptide Triglycerides 106 Cholesterol 130 LDL Cholesterol 74 VLDL Cholesterol 21 HDL Cholesterol 35 L Urine Color Urine Clarity Urine pH Ur Specific [place] Urine Protein Urine Glucose (UA) Urine Ketones Urine Occult Blood Urine Nitrite Urine Bilirubin Urine Urobilinogen Ur Leukocyte Esterase Urine RBC Urine WBC Ur Squamous Epith Cells Calcium Oxalate Crystal Urine Bacteria Urine Mucus 10/31/18 12:25 WBC RBC Hgb Hct MCV MCH MCHC RDW RDW Differential Plt Count MPV Immature Gran % (Auto) Neut % (Auto) Lymph % (Auto) [place] % (Auto) Eos % (Auto) Baso % (Auto) Absolute Neuts (auto) Absolute Lymphs (auto) Total Counted APTT 34.9 Specimen Type Sample Site pH Bicarbonate Actual POC Total CO2 Base Excess O2 Saturation O2 % ABG pCO2 ABG pO2 Jeyson Test O2 Delivery Device Blood Gas Notified Whom Blood Gas Notified Time Sodium Potassium Chloride Carbon Dioxide Anion Gap BUN Creatinine Estim Creat Clear Calc Est GFR (MDRD) Af Amer Est GFR (MDRD) Non-Af BUN/Creatinine Ratio Glucose Calcium Phosphorus Magnesium Troponin I B-Natriuretic Peptide Triglycerides Cholesterol LDL Cholesterol VLDL Cholesterol HDL Cholesterol Urine Color Urine Clarity Urine pH Ur Specific [place] Urine Protein Urine Glucose (UA) Urine Ketones Urine Occult Blood Urine Nitrite Urine Bilirubin Urine Urobilinogen Ur Leukocyte Esterase Urine RBC Urine WBC Ur Squamous Epith Cells Calcium Oxalate Crystal Urine Bacteria Urine Mucus POC Glucose 10/31/18 10/31/18 10/30/18 11:26 07:05 22:16 POC Glucose 185 H 164 H 160 H 10/30/18 17:20 POC Glucose 146 H Medical Necessity - Tobacco Use Smoking Status: Former smoker - Patient quit approximately 25 years prior to current presentation. Tobacco Use: Non-smoker Assessment/Plan All Active Problems Closed left hip fracture (Acute) Lethargy (Acute) Weakness (Acute) Troponin I above reference range (Acute) HTN (hypertension) (Acute) Frequent unifocal PVCs (Acute) Chest pain (Acute) Postop day 1 left hip cephalo-medullary nail 1. PE: Patient had progressive shortness of breath throughout yesterday. Required increasing amounts of oxygen. There was concern for a stroke due to her lethargy MRI did not reveal significant stroke. However, this morning CTA revealed a pulmonary embolus. She has been placed on heparin at this time to help anticoagulate. Appreciate management of medical team. She is transferred back out of the ICU put on cardiac monitoring. Troponins were elevated and cardiology has been consulted. We will continue to monitor. 2. Pain control: Pain currently under control with current regimen 3. Physical therapy: Weight-bear as tolerated, activity as tolerated 4. Anticoagulation will put patient at risk for internal bleeding. She is over 24 hours from her original surgery. We discussed this possibility today. Today her thigh is soft and supple. No excessive bleeding at this time. This will however need clinical monitoring. 5. Disposition: Based on other medical events that have happened on this admission patient will likely need prison facility upon discharge from the hospital. [facility] Office:
[2018-10-31] MEDS: HEPARIN/D5w 25,000 UNITS 25,000 UNITS/250 ML IV.SOLN. 11 UNITS IV (13:36)
[2018-10-31 17:26] LABS: Bedside Glucose 177 mg/dL (70-110)
[2018-10-31] MEDS: Atorvastatin Calcium 80 MG Tablet PO (21:34)
[2018-10-31] MEDS: Donepezil HCl 5 MG Tablet PO (21:34)
[2018-10-31 22:40] LABS: Bedside Glucose 142 mg/dL (70-110)
[2018-11-01] VITALS (15 sets, daily range): BP systolic 120–172; BP diastolic 66–91; PULSE 63–96; RESP 16–18; TEMP 36.5–37.1; O2SAT 93–100
[2018-11-01 00:10] LABS: Bedside Glucose 150 mg/dL (70-110)
[2018-11-01] MEDS: Insulin Lispro 100 UNIT/ML INSULN.PEN SC ×4 (06:00→22:37)
[2018-11-01] MEDS: Acetaminophen 500 MG Tablet 1000 MG PO ×3 (06:00→22:36)
[2018-11-01 06:11] LABS: Bedside Glucose 166 mg/dL (70-110)
[2018-11-01 06:44] LABS: Anion Gap 5 (5-15); BUN 4 mg/dL (7-18); BUN/Creat Ratio 11.1 RATIO (10-20); Calcium,Total 8.2 mg/dL (8.5-10.1); Chloride 107 mmol/L (98-107); Creatinine, Serum 0.36 mg/dL (0.55-1.02); EST Glomerular Filtration Rate 190 mL/min (>60); Est Glom Filt Rate - Afr Amer 230 mL/min (>60); Glucose 174 mg/dL (74-106); Magnesium 1.9 mg/dL (1.6-2.6); Potassium 3.6 mmol/L (3.5-5.1); Sodium Level 141 mmol/L (136-145)
--- NOTE | 2018-11-01 08:00 | VDLE_ITS ---
Reason For Study: PULM EMBOLUS RIGHT LEFT CFV is compressible, spontaneous, phasic, GSV is normal. competent and demonstrates normal Left CFV and SFV are partially compressible augmentation. with fragments of thrombus visualized FV is compressible, spontaneous, phasic, throughout. competent and demonstrates normal Left POPV and T/P Trunk are not visualized- augmentation. pt refused due to left hip fracture and pain POP V is compressible, spontaneous, phasic, tolerance. competent and demonstrates normal PTV is compressible. augmentation. LT PerV is compressible. T/P Trunk is compressible. PTV is compressible. RT PerV is compressible. RT GSV is dilated and PARTIALLY COMPRESSIBLE at the SFJ junction. The remainder of the GSV is compressible. Procedure Exam performed portable in patient room. A preliminary report was called and/or faxed to [facility]. Interpretation Summary Superficial thrombophlebitis right saphenofemoral junction Acute deep venous thrombosis left common femoral and femoral veins Patent and compressible left great saphenous vein Ordering Physician: Jolene Fox Referring Physician: JORDAN WAGNER CHI Performed By: Shivani Singleton, AMY, RVT
[2018-11-01] MEDS: Metoprolol(XL)Succ 25 MG Tablet PO (10:06)
[2018-11-01] MEDS: Famotidine 20 MG Tablet PO ×2 (10:06→22:37)
[2018-11-01] MEDS: Aspirin 81 MG TAB.CHEW PO (10:06)
--- NOTE | 2018-11-01 10:06 | PCM.PN.ORT ---
Patient Problems: Active and Suspected Problems Closed left hip fracture (Acute) Lethargy (Acute) Weakness (Acute) Troponin I above reference range (Acute) Subjective: Patient is lying in bed sleeping. Patient easy to awake. Patient is alert oriented. Patient states her hip is still painful. Denies chest pain, shortness breath, calf pain, nausea vomiting. Patient states she is ready to be discharged to extended care facility for further rehab. Objective: Dressing is clean dry intact. Patient has no pain to palpation to the bilateral calves. There is soft. Patient has good strong distal pulses. Patient has good flexion-extension of the knee still very painful with motion of the of the left hip. Vital signs labs within normal limits. Patient is afebrile neurovascular is otherwise intact. Patient does have 2 L of O2 via nasal cannula, however does not appear to be in respiratory distress and is speaking full sentences. - Physical Exam General: Alert, Oriented x3, Cooperative HEENT: PERRLA Oral: Moist Mucosa Neurological: Cranial nerves II-XII grossly intact Psych/Mental Status: Normal Affect, Alert and oriented to time, place, person, mood and affect Vital Signs Temp Pulse Resp BP Pulse Ox 98 F 84 16 144/70 H 94 11/01/18 08:06 11/01/18 08:06 11/01/18 08:06 11/01/18 08:06 11/01/18 08:06 Oxygen Flow Rate (L/min) 5 Oxygen Delivery Method Nasal Cannula Weight: 70.8 kg Body Mass Index (BMI) 24.3 Finger Stick Blood Glucose 166 Intake and Output for Last 24 Hours 10/30/18 10/31/18 11/01/18 23:59 23:59 23:59 Intake Total 3743 / 3743 1260 / 1260 68 / 68 Output Total 650 / 650 1200 / 1200 Balance 3093 / 3093 60 / 60 68 / 68 Microbiology Past 72 Hours 10/29/18 12:23 Urine Culture - Final Urine, Random Culture exhibits no growth. Laboratory Tests Past 24 Hrs 10/31/18 10/31/18 11/01/18 12:25 19:48 01:35 APTT 34.9 74.0 H 79.0 H Sodium Potassium Chloride Carbon Dioxide Anion Gap BUN Creatinine Estim Creat Clear Calc Est GFR (MDRD) Af Amer Est GFR (MDRD) Non-Af BUN/Creatinine Ratio Glucose Calcium Magnesium 11/01/18 06:00 APTT Sodium 141 Potassium 3.6 Chloride 107 Carbon Dioxide 29.0 Anion Gap 5 BUN 4 L Creatinine 0.36 L Estim Creat Clear Calc 49.70 Est GFR (MDRD) Af Amer 230 Est GFR (MDRD) Non-Af 190 BUN/Creatinine Ratio 11.1 Glucose 174 H Calcium 8.2 L Magnesium 1.9 POC Glucose 11/01/18 11/01/18 10/31/18 05:58 00:05 21:28 POC Glucose 166 H 150 H 142 H 10/31/18 10/31/18 17:23 11:26 POC Glucose 177 H 185 H Medical Necessity - Tobacco Use Smoking Status: Former smoker - Patient quit approximately 25 years prior to current presentation. Tobacco Use: Non-smoker Assessment/Plan All Active Problems Closed left hip fracture (Acute) Lethargy (Acute) Weakness (Acute) Troponin I above reference range (Acute) HTN (hypertension) (Acute) Frequent unifocal PVCs (Acute) Chest pain (Acute) Status post ORIF left hip fracture with InterTAN Plan 1. Continue all pain medications as prescribed 2. Continue physical therapy with weight-bear as tolerated with walker. 3. Continue postop DVT prophylaxis and anticoagulation as directed by medicine. 4. Shower in 2 days. 5. Staple removal 11-10-2018 6. Follow-up with Dr. Pollock in 2-3 weeks, call office for appointment. 7. Discharge to TCU or extended care facility when clear by medicine
[2018-11-01] MEDS: Calcium Carb/Vitamin D 1 TABLET Tablet PO ×2 (10:07→15:58)
[2018-11-01] MEDS: Magnesium Oxide 400 MG Tablet PO (10:07)
[2018-11-01] MEDS: Escitalopram Oxalate 10 MG Tablet PO (10:08)
[2018-11-01] MEDS: HEPARIN/D5w 25,000 UNITS 25,000 UNITS/250 ML IV.SOLN. 11 UNITS IV (10:12)
[2018-11-01 12:16] LABS: Bedside Glucose 193 mg/dL (70-110)
--- NOTE | 2018-11-01 12:19 | CASEMGMT ---
Social Work: ARPITA from [facility] in Inpatient rehab. Sonal states that insurance pre cert was started today. Sonal to notify this SW once pre cert has been obtained. PLAN: Patient to be discharged to inpatient rehab pending insurance pre cert. BETH Kline
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
[2018-11-01 16:06] LABS: Bedside Glucose 212 mg/dL (70-110)
[2018-11-01] MEDS: oxyCODONE 5 MG Tablet PO (16:16)
--- NOTE | 2018-11-01 18:38 | PN.CARD_ITS ---
Subjectve: Patient doing better today, still complains of left hip pain although improved. No chest pain. Telemetry negative. Chest CTA demonstrated positive right pulmonary embolism. Heparin started yesterday. Objective: Vital Signs Temp Pulse Resp BP Pulse Ox 98.8 F 77 18 120/67 95 11/01/18 16:22 11/01/18 16:22 11/01/18 16:22 11/01/18 16:22 11/01/18 16:22 Oxygen Flow Rate (L/min) 3 Oxygen Delivery Method Nasal Cannula Weight: 156 lb 1.396 oz Body Mass Index (BMI) 24.3 Finger Stick Blood Glucose 166 Intake and Output for Last 24 Hours 10/30/18 10/31/18 11/01/18 23:59 23:59 23:59 Intake Total 3743 / 3743 1260 / 1260 373 / 373 Output Total 650 / 650 1200 / 1200 500 / 500 Balance 3093 / 3093 60 / 60 -127 / -127 General: Awake, Alert, Oriented x 3 HEENT: PERRL, EOMI, Sclera Non Icteric Neck: Supple, Good ROM, No Lymph Node Enlargement Lungs: Clear to auscultation Cardiovascular: Regular Rhythm, Normal S1, Normal S2, No Murmurs, No Rubs, No Gallops Vascular: No Carotid Bruits, Normal Femoral Pulses, Normal Radial Pulses, Normal Dorsalis Pedal Pulse, Normal Posterior Tibial Pulses Abdomen: Bowel Sounds Present, Soft, Non Tender, No HSM, No Organomegaly Extremities: No Cyanosis, No Clubbing, No edema Neurological: No Focal Motor or Sensory Deficit 10/31/18 19:48: APTT 74.0 H 11/01/18 01:35: APTT 79.0 H 11/01/18 06:00: Sodium 141, Potassium 3.6, Chloride 107, Carbon Dioxide 29.0, Anion Gap 5, BUN 4 L, Creatinine 0.36 L, Est GFR (MDRD) Af Amer 230, Est GFR (MDRD) Non-Af 190, BUN/Creatinine Ratio 11.1, Glucose 174 H, Calcium 8.2 L, Magnesium 1.9 Rhythm: EKG: ECHO: Stress Test: Cardiac Cath: PCI: CT Surgery: Holter monitor: EPS: PPM: CXR: Chest CT Scan: Medical Necessity - Tobacco Use Smoking Status: Former smoker - Patient quit approximately 25 years prior to current presentation. Tobacco Use: Non-smoker Assessment/Plan 1. Abnormal troponins: Patient had no chest pain symptoms and had mental status changes perioperatively, possibly secondary to transient hypoxemia or more medical reaction to anesthesia/narcotics. She is completely lucid now. She had a recent catheterization 2017 for an abnormal stress test which showed essentially normal coronary arteries and normal LV function. Her EKG shows no evidence of dynamic ST elevation or ST segment depression and the patient has no anginal symptoms either prior to or subsequent to her surgery. 2D echo Doppler demonstrated normal LV function with severe pulmonary hypertension with an RVSP of 70 mmHg. No old echocardiograms for comparison. I would not pursue left heart catheterization at this time. I would recommend starting Toprol-XL 25 mg p.o. daily for both heart rate and blood pressure control in order to avoid significant hypertension. Her abnormal troponins are most likely secondary to demand ischemia as a result of her stress after her surgery or RV strain given her severe pulmonary hypertension. CTA of her chest demonstrated right pulmonary embolism, and IV heparin started. The patient will need to transition to either p.o. warfarin or novel oral anticoagulant such as Xarelto or Eliquis per surgical recommendations. R ecommend maintaining a PTT between 50?70. 2. Agree with transfer to PCU for telemetry monitoring. 3. Discussed with Dr. Fox. Thank you very much for the opportunity to participate in the cardiac care of your patient. Code Visit Inpatient E&M: [id number] Subs Hosp L2
--- NOTE | 2018-11-01 18:40 | PN_ITS ---
Patient Problems: Active and Suspected Problems Closed left hip fracture (Acute) Lethargy (Acute) Weakness (Acute) Troponin I above reference range (Acute) Subjective: All events of the past 24 hours been reviewed. Remains afebrile. Currently 95% saturated on a 3 L nasal cannula. All lab was personally reviewed: BMP is unremarkable. Blood sugars are adequately controlled Venous ultrasound of the lower extremities is positive for acute deep vein thrombosis of the left common femoral and femoral veins. There is superficial thrombophlebitis of the right saphenofemoral junction. Telemetry-normal sinus rhythm with periods of A. fib with RVR, multiple PVCs but no couplets and no triplets Echocardiogram: Left ventricular ejection fraction is 65% with stage I diastolic dysfunction. Right ventricular systolic function is mildly depressed and the right ventricular systolic pressure is estimated to be 70-likely affected by p ulmonary emboli. She denies shortness of breath at rest and also denies chest pain. Her only real pain at present is her hip hurts and she feels very tired. She has received nothing but Tylenol today. - Physical Exam General: Alert, Oriented x3, Cooperative, - - looks a little pale but otherwise looks better today HEENT: Atraumatic, PERRLA Oral: Moist Mucosa, No Gingival or Mucosal Lesions/ Ulcerations Lungs: Clear to auscultation - anterior and lateral - has been using the IS adn doing very well, - - No conversational dyspnea, not tachypneic, no accessory muscle use Cardiovascular: Regular rate, Regular Rhythm, Normal S1, Normal S2, No Gallop Abdomen: Bowel Sounds Present, Soft, Non Tender, Non-Distended Extremities: No clubbing, No cyanosis, No edema Skin: No rashes, - - Dressing is dry Neurological: Cranial nerves II-XII grossly intact, Neuro grossly intact - she is able to lift the RLE off the bed today and is moving the foot on the left Psych/Mental Status: Normal Affect, Appropriate Vital Signs Temp Pulse Resp BP Pulse Ox 98.8 F 77 18 120/67 95 11/01/18 16:22 11/01/18 16:22 11/01/18 16:22 11/01/18 16:22 11/01/18 16:22 Oxygen Flow Rate (L/min) 3 Oxygen Delivery Method Nasal Cannula Weight: 156 lb 1.396 oz Body Mass Index (BMI) 24.3 Finger Stick Blood Glucose 166 Intake and Output for Last 24 Hours 10/30/18 10/31/18 11/01/18 23:59 23:59 23:59 Intake Total 3743 / 3743 1260 / 1260 373 / 373 Output Total 650 / 650 1200 / 1200 500 / 500 Balance 3093 / 3093 60 / 60 -127 / -127 Microbiology Past 72 Hours 10/30/18 21:45 Urine Culture - Final Urine Catheter - Antoine GPC Poss Enterococcus sp 10/29/18 12:23 Urine Culture - Final Urine, Random Culture exhibits no growth. Laboratory Tests Past 24 Hrs 10/31/18 11/01/18 11/01/18 19:48 01:35 06:00 APTT 74.0 H 79.0 H Sodium 141 Potassium 3.6 Chloride 107 Carbon Dioxide 29.0 Anion Gap 5 BUN 4 L Creatinine 0.36 L Estim Creat Clear Calc 49.70 Est GFR (MDRD) Af Amer 230 Est GFR (MDRD) Non-Af 190 BUN/Creatinine Ratio 11.1 Glucose 174 H Calcium 8.2 L Magnesium 1.9 POC Glucose 11/01/18 11/01/18 11/01/18 15:57 12:08 05:58 POC Glucose 212 H 193 H 166 H 11/01/18 10/31/18 00:05 21:28 POC Glucose 150 H 142 H Medical Necessity - Tobacco Use Smoking Status: Former smoker - Patient quit approximately 25 years prior to current presentation. Tobacco Use: Non-smoker Assessment/Plan All Active Problems Closed left hip fracture (Acute) Lethargy (Acute) Weakness (Acute) Troponin I above reference range (Acute) HTN (hypertension) (Acute) Frequent unifocal PVCs (Acute) Chest pain (Acute) Impressions 1. Left hip fracture secondary to a mechanical fall - S/P ORIF on 10/[address] Pollock 2. Diabetes mellitus type II. This is a new diagnosis. Hemoglobin A1c is 8.9. 3. Hypokalemia 4. Anxiety/depression 5. Former smoker....quit in approximately 1994. 6. Strong family history of dementia on Aricept prophylactically 7. suspected CVA - Abnormal MRI with possible emboli BL CVA's in a pt having PAF with RVR 8. NSTEMI - type II 9. PE's -filling defects in the distal right main pulmonary artery extending to the right lower lobe branches. There are a few filling defects noted in the right upper lobe branches. 10. Atelectasis Supplement the MAG and the K to keep them at [address] Jerez added metoprolol XL 25 mg today to help control rate, prevent A. fib and control premature ventricular contractions. Discontinue heparin infusion and start Eliquis 10 mg p.o. twice daily for 1 week and then decrease to 5 mg p.o. twice daily. Insurance precertification for transfer to the rehab unit was started today. Recheck lab in the a.m. Code Visit Inpatient E&M: [id number] Subs Hosp L2
[2018-11-01] MEDS: MELATONIN 10 MG TABLET PO (22:37)
[2018-11-01] MEDS: Atorvastatin Calcium 80 MG Tablet PO (22:37)
[2018-11-01] MEDS: 0.9% NaCl Peripheral Flush Adult/Peds IV (22:37)
[2018-11-01] MEDS: APIXABAN 5 MG TABLET 10 MG PO (22:37)
[2018-11-01] MEDS: Donepezil HCl 5 MG Tablet PO (22:37)
[2018-11-02] VITALS (17 sets, daily range): BP systolic 126–176; BP diastolic 70–86; PULSE 60–89; RESP 12–18; TEMP 36.4–36.9; O2SAT 83–97
[2018-11-02 00:20] LABS: Bedside Glucose 220 mg/dL (70-110)
[2018-11-02] MEDS: Acetaminophen 500 MG Tablet 1000 MG PO ×3 (05:38→21:40)
[2018-11-02 06:04] LABS: Partial Thromboplast Time 40.3 Seconds (24.1-36.2)
[2018-11-02 06:08] LABS: Anion Gap 6 (5-15); BUN 7 mg/dL (7-18); BUN/Creat Ratio 16.4 RATIO (10-20); Calcium,Total 8.2 mg/dL (8.5-10.1); Chloride 108 mmol/L (98-107); Creatinine, Serum 0.43 mg/dL (0.55-1.02); EST Glomerular Filtration Rate 156 mL/min (>60); Est Glom Filt Rate - Afr Amer 189 mL/min (>60); Glucose 156 mg/dL (74-106); Potassium 3.8 mmol/L (3.5-5.1); Sodium Level 143 mmol/L (136-145)
[2018-11-02 06:24] LABS: Hematocrit 31.3 % (37-47); Hemoglobin 10.2 g/dl (12.0-15.0); Mean Corp Hgb Conc 32.6 g/gl (32-36); Mean Corpuscular Hgb 30.4 pg (27.0-32.0); Mean Corpuscular Volume 93.2 fL (81-99); Mean Platelet Vol. 10.1 fl (6.2-12.0); Platelet Count 310 K/mm3 (150-450); RBC Distribution Width SD 43.9 fl (35.1-43.9); Red Blood Count 3.36 M/mm3 (4.2-5.4); White Blood Count 7.1 K/mm3 (4.4-11.0)
[2018-11-02 06:30] LABS: Scan Indicated on CBC? Y/N NO
[2018-11-02 07:00] LABS: Bedside Glucose 164 mg/dL (70-110)
--- NOTE | 2018-11-02 07:02 | EKG12_ITS ---
Test Reason : ELEVATED TROPONIN Blood Pressure : / mmHG Vent. Rate : 101 BPM Atrial Rate : 101 BPM P-R Int : 180 ms QRS Dur : 080 ms QT Int : 334 ms P-R-T Axes : 042 028 072 degrees QTc Int : 433 ms Sinus tachycardia Low voltage QRS Borderline ECG When compared with ECG of 29-OCT-2018 04:17, MANUAL COMPARISON REQUIRED, DATA IS UNCONFIRMED Confirmed by JOSE OROSCO, QUIRINO ([id number]), news videotape editor ARSH REID ([id number]) on 11/03/2018 2:01:48 PM Referred By: FIDELIA Confirmed By:QUIRINO GARCIA MD
[2018-11-02] MEDS: Insulin Lispro 100 UNIT/ML INSULN.PEN SC ×4 (08:15→21:39)
[2018-11-02] MEDS: Aspirin 81 MG TAB.CHEW PO (08:16)
[2018-11-02] MEDS: Calcium Carb/Vitamin D 1 TABLET Tablet PO ×2 (08:16→16:17)
[2018-11-02] MEDS: Magnesium Oxide 400 MG Tablet PO (08:16)
[2018-11-02] MEDS: Famotidine 20 MG Tablet PO ×2 (08:17→21:40)
[2018-11-02] MEDS: Escitalopram Oxalate 10 MG Tablet PO (08:17)
[2018-11-02] MEDS: Senna/Docusate Sodium 1 Tablet 2 TABLET PO (08:17)
[2018-11-02] MEDS: Metoprolol(XL)Succ 25 MG Tablet PO (08:18)
[2018-11-02] MEDS: APIXABAN 5 MG TABLET 10 MG PO ×2 (08:20→21:39)
--- NOTE | 2018-11-02 09:20 | PCM.PN.CARD ---
Subjectve: Patient doing okay this morning, mild conversational dyspnea. I made the patient aware that she has a right-sided pulmonary embolism. She was transitioned from heparin to Eliquis and denies any anginal symptoms. Telemetry with normal sinus rhythm with rare PVCs. Objective: Vital Signs Temp Pulse Resp BP Pulse Ox 97.6 F L 71 16 157/70 H 96 11/02/18 06:32 11/02/18 08:18 11/02/18 06:32 11/02/18 06:32 11/02/18 06:32 Oxygen Flow Rate (L/min) 2 Oxygen Delivery Method Room Air Weight: 159 lb 13.362 oz Body Mass Index (BMI) 24.3 Finger Stick Blood Glucose 166 Intake and Output for Last 24 Hours 10/31/18 11/01/18 11/02/18 23:59 23:59 23:59 Intake Total 1260 / 1260 373 / 373 262 / 262 Output Total 1200 / 1200 500 / 500 850 / 850 Balance 60 / 60 -127 / -127 -588 / -588 General: Awake, Alert, Oriented x 3 HEENT: PERRL, EOMI, Sclera Non Icteric Neck: Supple, Good ROM, No Lymph Node Enlargement Lungs: Clear to auscultation Cardiovascular: Regular Rhythm, Normal S1, Normal S2, No Murmurs, No Rubs, No Gallops Vascular: No Carotid Bruits, Normal Femoral Pulses, Normal Radial Pulses, Normal Dorsalis Pedal Pulse, Normal Posterior Tibial Pulses Abdomen: Bowel Sounds Present, Soft, Non Tender, No HSM, No Organomegaly Extremities: No Cyanosis, No Clubbing, No edema Neurological: No Focal Motor or Sensory Deficit 11/02/18 05:14: APTT 40.3 H 11/02/18 05:14: WBC 7.1, RBC 3.36 L, Hgb 10.2 L, Hct 31.3 L, MCV 93.2, MCH 30.4, MCHC 32.6, RDW 13.0, RDW Differential 43.9, Plt Count 310, MPV 10.1 11/02/18 05:14: Sodium 143, Potassium 3.8, Chloride 108 H, Carbon Dioxide 29.0, Anion Gap 6, BUN 7, Creatinine 0.43 L, Est GFR (MDRD) Af Amer 189, Est GFR (MDRD) Non-Af 156, BUN/Creatinine Ratio 16.4, Glucose 156 H, Calcium 8.2 L Rhythm: EKG: ECHO: Stress Test: Cardiac Cath: PCI: CT Surgery: Holter monitor: EPS: PPM: CXR: Chest CT Scan: Medical Necessity - Tobacco Use Smoking Status: Former smoker - Patient quit approximately 25 years prior to current presentation. Tobacco Use: Non-smoker Assessment/Plan 1. Abnormal troponins: Patient had no chest pain symptoms and had mental status changes perioperatively, possibly secondary to transient hypoxemia or more medical reaction to anesthesia/narcotics. She is completely lucid now. She had a recent catheterization 2016 for an abnormal stress test which showed essentially normal coronary arteries and normal LV function. Her EKG shows no evidence of dynamic ST elevation or ST segment depression and the patient has no anginal symptoms either prior to or subsequent to her surgery. 2D echo Doppler demonstrated normal LV function with severe pulmonary hypertension with an RVSP of 70 mmHg. No old echocardiograms for comparison. I would not pursue left heart catheterization at this time. She appears to be tolerating her Toprol well despite her pulmonary embolism. Her abnormal troponins are most likely secondary to demand ischemia as a result of her stress after her surgery or RV strain given her significant pulmonary hypertension. CTA of her chest demonstrated right pulmonary embolism, and IV heparin started and changed to eliquis. Pt will need at least 6 months of eliquis followed by repeat echo. Pt may need SNF prior to d/c home given hip fx and PE. No plans for stress testing given recent PE. 2. Discussed with Dr. Fox. Thank you very much for the opportunity to participate in the cardiac care of your patient. Will sign off; please call for any questions. Code Visit Inpatient E&M: [id number] Subs Hosp L2
--- NOTE | 2018-11-02 09:32 | CASEMGMT ---
Social Work: TC from Sonal from inpatient rehab stating that referral has gone to [facility]. Will continue to follow to assist as needed with D/C planning. BETH Kline
[2018-11-02] MEDS: oxyCODONE 5 MG Tablet PO (09:54)
[2018-11-02 11:10] LABS: Bedside Glucose 151 mg/dL (70-110)
--- NOTE | 2018-11-02 13:42 | CASEMGMT ---
Social Work: TC from Sonal on inpatient rehab. Sonal states that [facility] has denied IRF level of care. Per Sonal, [facility] states that they will approve SNF level of care. Met with patient to explain IRF denial and that patient would be appropriate for SNF level of care. Patient's first choice is TCU and her second choice is [facility]. TC to Suni who states that she will know if a bed is available later today. Will continue to follow to assist with D/C planning. PLAN: Patient to be discharged to SNF pending bed availability and insurance approval. BETH Kline
--- NOTE | 2018-11-02 16:00 | CASEMGMT ---
Social Work: TC from Suni in TCU. Suni states that there is no bed availability for patient at this time. TC to Renetta at [facility] regarding bed availability. Renetta states that they are not in network with [facility] but she will check with [facility] regarding out of network benefits. BETH Kline
[2018-11-02 16:26] LABS: Bedside Glucose 174 mg/dL (70-110)
--- NOTE | 2018-11-02 16:30 | CASEMGMT ---
Social Work: TC from Renetta at [facility]. Renetta states that patient does not have out of network benefits but [facility] will do a one time contract with [facility]. Renetta requesting clinicals to obtain pre cert. Clinicals faxed. Spoke with patient and daughter in room. Both aware that [facility] will be pursuing a one time contract for patient to be able to go there for skilled level of care. Patient and daughter agreeable to plan and voice appreciation. Will follow to assist as needed with D/C planning. PLAN: Patient to be discharged to [facility] once pre cert has been obtained. BETH Kline
[2018-11-02] MEDS: Donepezil HCl 5 MG Tablet PO (21:39)
[2018-11-02] MEDS: Atorvastatin Calcium 80 MG Tablet PO (21:40)
[2018-11-02] MEDS: MELATONIN 10 MG TABLET PO (21:44)
[2018-11-02 22:10] LABS: Bedside Glucose 185 mg/dL (70-110)
--- NOTE | 2018-11-02 23:47 | PN_ITS ---
Patient Problems: Active and Suspected Problems Closed left hip fracture (Acute) Lethargy (Acute) Weakness (Acute) Troponin I above reference range (Acute) Subjective: The patient is a 67-year-old female who fell in her garage and sustained a nondisplaced basicervical femoral neck fracture. She was taken to surgery by Dr. Pollock on 10/29/2018 and had a left hip cephalo-?medullary nail. On 10/30 she was very lethargic and requiring high flow oxygen to maintain an appropriate saturation. She had right-sided weakness and was taken to CT scan and had no acute findings. A CTA of the head neck was done and revealed no significant areas of stenosis. She was transferred to the intensive care unit with altered mental status, right-sided weakness and hypoxia. CTA of the chest was done on 10/31/2018 and revealed pulmonary emboli in the distal right main pulmonary artery extending to the right lower lobe pulmonary artery. She was started on a heparin drip and there was no bleeding from the incision over the next 24 hours. She has been transitioned to [facility]. While in the intensive care unit and on PCU she has been having bursts of paroxysmal atrial fibrillation and was started on a beta-deonte by Dr. Jerez. She is going to be transferred to senior care when precertification is obtained. All events of the past 24 hours of been reviewed. She is afebrile. Vital signs are stable. Oxygen has been weaned and she is currently 93-94% on a 2 L nasal cannula. She denies chest pain and shortness of breath. She ambulated 15 feet x2 with a front wheeled walker with minimal assist for stability. Objective: GENERAL: alert, oriented X 3, Cooperative, NAD ORAL: dry mucosa, no mucosal lesions NECK: No JVD, supple, trachea midline LUNGS: CTA, symmetric chest expansion, not tachypneic lying flat in bed, no accessory muscle use, no conversational dyspnea HEART: RRR, Normal S1 and S2, no rub, no gallop ABDOMEN: soft, NT, ND, BS present, no guarding with palpation EXTREMITIES: no edema, no cyanosis, no calf tenderness, pedal pulses are normal, the left lower extremity is shortened and externally rotated SKIN: No rashes, no breakdown NEUROLOGIC: no focal neurologic deficits PSYCH: appropriate, normal affect, pleasant - Physical Exam Vital Signs Temp Pulse Resp BP Pulse Ox 98.4 F 67 18 160/72 H 93 11/02/18 21:30 11/02/18 21:30 11/02/18 21:30 11/02/18 21:30 11/02/18 21:30 Oxygen Flow Rate (L/min) 2 Oxygen Delivery Method Nasal Cannula Weight: 159 lb 13.362 oz Body Mass Index (BMI) 24.3 Finger Stick Blood Glucose 166 Intake and Output for Last 24 Hours 10/31/18 11/01/18 11/02/18 23:59 23:59 23:59 Intake Total 1260 / 1260 373 / 373 1762 / 1762 Output Total 1200 / 1200 500 / 500 1350 / 1350 Balance 60 / 60 -127 / -127 412 / 412 Microbiology Past 72 Hours 10/30/18 21:45 Urine Culture - Final Urine Catheter - Antoine GPC Poss Enterococcus sp 10/29/18 12:23 Urine Culture - Final Urine, Random Culture exhibits no growth. Laboratory Tests Past 24 Hrs 11/02/18 11/02/18 11/02/18 05:14 05:14 05:14 WBC 7.1 RBC 3.36 L Hgb 10.2 L Hct 31.3 L MCV 93.2 MCH 30.4 MCHC 32.6 RDW 13.0 RDW Differential 43.9 Plt Count 310 MPV 10.1 APTT 40.3 H Sodium 143 Potassium 3.8 Chloride 108 H Carbon Dioxide 29.0 Anion Gap 6 BUN 7 Creatinine 0.43 L Estim Creat Clear Calc 49.70 Est GFR (MDRD) Af Amer 189 Est GFR (MDRD) Non-Af 156 BUN/Creatinine Ratio 16.4 Glucose 156 H Calcium 8.2 L POC Glucose 11/02/18 11/02/18 11/02/18 21:34 16:17 11:07 POC Glucose 185 H 174 H 151 H 11/02/18 11/01/18 06:36 22:05 POC Glucose 164 H 220 H Medical Necessity - Tobacco Use Smoking Status: Former smoker - Patient quit approximately 25 years prior to current presentation. Tobacco Use: Non-smoker Assessment/Plan All Active Problems Closed left hip fracture (Acute) Lethargy (Acute) Weakness (Acute) Troponin I above reference range (Acute) HTN (hypertension) (Acute) Frequent unifocal PVCs (Acute) Chest pain (Acute) Impressions 1. Left hip fracture secondary to a mechanical fall - S/P ORIF on 10/[address] Pollock 2. Diabetes mellitus type II. This is a new diagnosis. Hemoglobin A1c is 8.9. Blood sugars are now well controlled 3. Hypokalemia 4. Anxiety/depression 5. Former smoker....quit in approximately 1994. 6. Strong family history of dementia on Aricept prophylactically 7. suspected CVA - Abnormal MRI with possible emboli BL CVA's in a pt having PAF with RVR. No neurologic deficits after 48 hours.... Right-sided weakness has completely resolved 8. NSTEMI - type II 9. PE's -filling defects in the distal right main pulmonary artery extending to the right lower lobe branches. There are a few filling defects noted in the right upper lobe branches. 10. Atelectasis Awaiting precertification for transfer to senior care for additional PT/OT prior to returning home. Continue current medications. Code Visit Inpatient E&M: [id number] [facility] L1
[2018-11-03] VITALS (12 sets, daily range): BP systolic 142–166; BP diastolic 69–76; PULSE 63–89; RESP 12–18; TEMP 36.6–36.9; O2SAT 92–98
[2018-11-03] MEDS: Acetaminophen 500 MG Tablet 1000 MG PO ×3 (05:29→21:10)
[2018-11-03 06:55] LABS: Bedside Glucose 158 mg/dL (70-110)
[2018-11-03] MEDS: Insulin Lispro 100 UNIT/ML INSULN.PEN SC ×3 (09:01→21:10)
[2018-11-03] MEDS: Aspirin 81 MG TAB.CHEW PO (09:01)
[2018-11-03] MEDS: APIXABAN 5 MG TABLET 10 MG PO ×2 (09:02→21:09)
[2018-11-03] MEDS: Calcium Carb/Vitamin D 1 TABLET Tablet PO ×2 (09:02→16:27)
[2018-11-03] MEDS: Famotidine 20 MG Tablet PO ×2 (09:02→21:10)
[2018-11-03] MEDS: Escitalopram Oxalate 10 MG Tablet PO (09:02)
[2018-11-03] MEDS: Magnesium Oxide 400 MG Tablet PO (09:02)
[2018-11-03] MEDS: Metoprolol(XL)Succ 25 MG Tablet PO (09:03)
[2018-11-03 11:51] LABS: Bedside Glucose 155 mg/dL (70-110)
[2018-11-03] MEDS: Senna/Docusate Sodium 1 Tablet 2 TABLET PO ×2 (13:36→21:10)
--- NOTE | 2018-11-03 14:05 | PCM.PROGNOTE ---
<Kelli Mcnamara - Last Filed: 11/03/18 14:20> Patient Problems: Active and Suspected Problems Deep vein thrombosis (DVT) of left lower extremity (Acute) Pulmonary embolism (Acute) Non-ST elevation [place] (NSTEMI) (Acute) Closed left hip fracture (Acute) Subjective: Patient seen and examined Denies current complaints. Pain well controlled. Ambulating with assistance. Awaiting pre-CERT to SNF. - Physical Exam General: Alert, Oriented x3, Cooperative HEENT: Atraumatic, PERRLA, EOMI, Normocephalic Neck: Supple, No JVD, Negative Carotid Bruits Lungs: Clear to auscultation, Normal air movement Cardiovascular: Regular rate, Regular Rhythm, Normal S1, Normal S2, No murmurs Abdomen: Bowel Sounds Present, Soft, Non Tender, Non-Distended Extremities: No clubbing, No cyanosis, No edema, Capillary Refill Less than 3 Seconds Skin: No rashes, No breakdown, - - Left hip postop incision without evidence of infection. Musculoskeletal: No Tenderness to Palpation of Joints or Extremities Neurological: Cranial nerves II-XII grossly intact, Neuro grossly intact Psych/Mental Status: Normal Affect, Appropriate Vital Signs Temp Pulse Resp BP Pulse Ox 98.0 F 70 16 142/74 H 98 11/03/18 09:30 11/03/18 10:56 11/03/18 09:30 11/03/18 09:30 11/03/18 09:30 Oxygen Flow Rate (L/min) 2 Oxygen Delivery Method Room Air Weight: 157 lb 10.088 oz Body Mass Index (BMI) 24.3 Finger Stick Blood Glucose 166 Intake and Output for Last 24 Hours 11/01/18 11/02/18 11/03/18 23:59 23:59 23:59 Intake Total 373 / 373 1882 / 1882 120 / 120 Output Total 500 / 500 1350 / 1350 350 / 350 Balance -127 / -127 532 / 532 -230 / -230 Microbiology Past 72 Hours 10/30/18 21:45 Urine Culture - Final Urine Catheter - Antoine GPC Poss Enterococcus sp 10/29/18 12:23 Urine Culture - Final Urine, Random Culture exhibits no growth. POC Glucose 11/03/18 11/03/18 11/02/18 11:37 06:43 21:34 POC Glucose 155 H 158 H 185 H 11/02/18 16:17 POC Glucose 174 H Medical Necessity - Tobacco Use Smoking Status: Former smoker - Patient quit approximately 25 years prior to current presentation. Tobacco Use: Non-smoker Assessment/Plan All Active Problems Deep vein thrombosis (DVT) of left lower extremity (Acute) Pulmonary embolism (Acute) Non-ST elevation [place] (NSTEMI) (Acute) Closed left hip fracture (Acute) 1. Left hip fracture secondary to mechanical fall prior to admission status post ORIF 10/29/[address] Pollock. PT/OT. PRN pain regimen. SNF pending pre-cert. 2. Suspected CVA-MRI of brain with possible bilateral punctate embolic infarctions, acute versus subacute. MRA of neck with normal cervical and vertebral arteries. Head CTA unremarkable. PT/OT/ST. neurology consulted. Continue aspirin, statin. On Eliquis for PE. 3. NSTEMI type II-secondary to stress as a result of #1 versus severe pulmonary hypertension. Echocardiogram showed an EF of 65%, stage I diastolic dysfunction, RVSP estimated to be 70 mmHg. No further cardiac workup at this time given acute PE. EKG without ST-T changes. Initiated on metoprolol per cardiology. 4. Right pulmonary embolism-CT of chest demonstrated right pulmonary embolism. On Eliquis. Duplex ultrasound showed acute DVT of the left common femoral and femoral veins. Superficial thrombophlebitis right saphenofemoral junction. 5. Type 2 diabetes mellitus-new diagnosis. Hemoglobin A1c 8.9%. Accu-Cheks AC at bedtime with sliding scale insulin. 6. Anxiety/depression-continue Lexapro, lorazepam regimen. 7. Significant family history of dementia-on Aricept prophylactically. DVT prophylaxis-Eliquis. Discharge planning: SNF pending pre-CERT. This patient was seen by LUPE Rendon under the supervision of Dr. Duron. <Anish Duron - Last Filed: 11/03/18 15:25> - Physical Exam Vital Signs Temp Pulse Resp BP Pulse Ox 98.0 F 86 16 142/74 H 98 11/03/18 09:30 11/03/18 15:00 11/03/18 09:30 11/03/18 09:30 11/03/18 09:30 Oxygen Flow Rate (L/min) 2 Oxygen Delivery Method Room Air Weight: 157 lb 10.088 oz Body Mass Index (BMI) 24.3 Finger Stick Blood Glucose 166 Intake and Output for Last 24 Hours 11/01/18 11/02/18 11/03/18 23:59 23:59 23:59 Intake Total 373 / 373 1882 / 1882 120 / 120 Output Total 500 / 500 1350 / 1350 350 / 350 Balance -127 / -127 532 / 532 -230 / -230 Microbiology Past 72 Hours 10/30/18 21:45 Urine Culture - Final Urine Catheter - Antoine GPC Poss Enterococcus sp 10/29/18 12:23 Urine Culture - Final Urine, Random Culture exhibits no growth. POC Glucose 11/03/18 11/03/18 11/02/18 11:37 06:43 21:34 POC Glucose 155 H 158 H 185 H 11/02/18:17 POC Glucose 174 H Assessment/Plan Hospitalist note: I am seeing this patient in conjunction with Kelli Mcnamara. I independently seen and examined the patient. Progress note above, laboratory data and imaging studies reviewed and I agree with above treatment plan. Patient seen and examined. No acute events overnight. She denied any significant complaints today. Left knee pain is controlled. Her vital signs are stable. - Physical Exam General: Alert, Oriented x3, Cooperative, No apparent distress. HEENT: Atraumatic, PERRLA, EOMI. Neck: Supple, No JVD, Negative Carotid Bruits, Trachea Midline, Thyroid Normal. Lungs: Diminished breath sounds bilateral, otherwise clear, No rhonchi, No wheeze, No rales. Cardiovascular: Regular rate, Regular Rhythm, Normal S1, Normal S2, PMI Normal. Abdomen: Bowel Sounds Present, Soft, Non Tender, Non-Distended, No Hepato-splenomegaly. Extremities: No clubbing, No cyanosis, No edema Skin: No rashes, No breakdown Neurological: Neuro grossly intact Vital Signs are stable. Assessment and plan: #1 acute traumatic: Status post left hip fracture open reduction internal fixation, doing well, awaiting insurance approval for long-term placement. #2 acute non-ST elevation [place]: Secondary to demand ischemia. 2D echocardiogram with ejection fraction of 65%. EKG revealed no acute changes. Cardiology consulted, recommended no interventions at this point or more cardiac workup. She is on metoprolol. #3 right lung PE/left leg DVT: On Eliquis. #4 suspected stroke: MRI brain showed possible bilateral punctate embolic infarctions, acute versus subacute. She has no focal deficit. MRA of the head and neck was unremarkable. 2D echocardiogram reviewed. Patient is on aspirin, statins and Eliquis. Neurology on the case. #5 other chronic medical problems: Stable, continue current medications as above. This note was generated with [employer] dictation software. It may contain incorrect words, spelling, and punctuation that were not noted in checking the note before signing. Code Visit Inpatient E&M: 02004 Subs Hosp L2
--- NOTE | 2018-11-03 14:12 | CASEMGMT ---
URBANO spoke with Jasmina at [facility] times today regarding pre-cert. She said [facility] told her they are having issues with their fax machine. They did finally receive the information. Jasmina is waiting on a return call from [facility]. URBANO put green sheet on chart if approved as URBANO is leaving early today. Joanne NAIK MSW
--- NOTE | 2018-11-03 14:19 | PN_ITS ---
<Kelli Mcnamara - Last Filed: 11/03/18 14:20> Patient Problems: Active and Suspected Problems Deep vein thrombosis (DVT) of left lower extremity (Acute) Pulmonary embolism (Acute) Non-ST elevation [place] (NSTEMI) (Acute) Closed left hip fracture (Acute) Subjective: Patient seen and examined Denies current complaints. Pain well controlled. Ambulating with assistance. Awaiting pre-CERT to SNF. - Physical Exam General: Alert, Oriented x3, Cooperative HEENT: Atraumatic, PERRLA, EOMI, Normocephalic Neck: Supple, No JVD, Negative Carotid Bruits Lungs: Clear to auscultation, Normal air movement Cardiovascular: Regular rate, Regular Rhythm, Normal S1, Normal S2, No murmurs Abdomen: Bowel Sounds Present, Soft, Non Tender, Non-Distended Extremities: No clubbing, No cyanosis, No edema, Capillary Refill Less than 3 Seconds Skin: No rashes, No breakdown, - - Left hip postop incision without evidence of infection. Musculoskeletal: No Tenderness to Palpation of Joints or Extremities Neurological: Cranial nerves II-XII grossly intact, Neuro grossly intact Psych/Mental Status: Normal Affect, Appropriate Vital Signs Temp Pulse Resp BP Pulse Ox 98.0 F 70 16 142/74 H 98 11/03/18 09:30 11/03/18 10:56 11/03/18 09:30 11/03/18 09:30 11/03/18 09:30 Oxygen Flow Rate (L/min) 2 Oxygen Delivery Method Room Air Weight: 157 lb 10.088 oz Body Mass Index (BMI) 24.3 Finger Stick Blood Glucose 166 Intake and Output for Last 24 Hours 11/01/18 11/02/18 11/03/18 23:59 23:59 23:59 Intake Total 373 / 373 1882 / 1882 120 / 120 Output Total 500 / 500 1350 / 1350 350 / 350 Balance -127 / -127 532 / 532 -230 / -230 Microbiology Past 72 Hours 10/30/18 21:45 Urine Culture - Final Urine Catheter - Antoine GPC Poss Enterococcus sp 10/29/18 12:23 Urine Culture - Final Urine, Random Culture exhibits no growth. POC Glucose 11/03/18 11/03/18 11/02/18 11:37 06:43 21:34 POC Glucose 155 H 158 H 185 H 11/02/18 16:17 POC Glucose 174 H Medical Necessity - Tobacco Use Smoking Status: Former smoker - Patient quit approximately 25 years prior to current presentation. Tobacco Use: Non-smoker Assessment/Plan All Active Problems Deep vein thrombosis (DVT) of left lower extremity (Acute) Pulmonary embolism (Acute) Non-ST elevation [place] (NSTEMI) (Acute) Closed left hip fracture (Acute) 1. Left hip fracture secondary to mechanical fall prior to admission status post ORIF 10/29/[address] Pollock. PT/OT. PRN pain regimen. SNF pending pre-cert. 2. Suspected CVA-MRI of brain with possible bilateral punctate embolic infarctions, acute versus subacute. MRA of neck with normal cervical and vertebral arteries. Head CTA unremarkable. PT/OT/ST. neurology consulted. Continue aspirin, statin. On Eliquis for PE. 3. NSTEMI type II-secondary to stress as a result of #1 versus severe pulmonary hypertension. Echocardiogram showed an EF of 65%, stage I diastolic dysfunction, RVSP estimated to be 70 mmHg. No further cardiac workup at this time given acute PE. EKG without ST-T changes. Initiated on metoprolol per cardiology. 4. Right pulmonary embolism-CT of chest demonstrated right pulmonary embolism. On Eliquis. Duplex ultrasound showed acute DVT of the left common femoral and femoral veins. Superficial thrombophlebitis right saphenofemoral junction. 5. Type 2 diabetes mellitus-new diagnosis. Hemoglobin A1c 8.9%. Accu-Cheks AC at bedtime with sliding scale insulin. 6. Anxiety/depression-continue Lexapro, lorazepam regimen. 7. Significant family history of dementia-on Aricept prophylactically. DVT prophylaxis-Eliquis. Discharge planning: SNF pending pre-CERT. This patient was seen by LUPE Rendon under the supervision of Dr. Duron. <Anish Duron - Last Filed: 11/03/18 15:25> - Physical Exam Vital Signs Temp Pulse Resp BP Pulse Ox 98.0 F 86 16 142/74 H 98 11/03/18 09:30 11/03/18 15:00 11/03/18 09:30 11/03/18 09:30 11/03/18 09:30 Oxygen Flow Rate (L/min) 2 Oxygen Delivery Method Room Air Weight: 157 lb 10.088 oz Body Mass Index (BMI) 24.3 Finger Stick Blood Glucose 166 Intake and Output for Last 24 Hours 11/01/18 11/02/18 11/03/18 23:59 23:59 23:59 Intake Total 373 / 373 1882 / 1882 120 / 120 Output Total 500 / 500 1350 / 1350 350 / 350 Balance -127 / -127 532 / 532 -230 / -230 Microbiology Past 72 Hours 10/30/18 21:45 Urine Culture - Final Urine Catheter - Antoine GPC Poss Enterococcus sp 10/29/18 12:23 Urine Culture - Final Urine, Random Culture exhibits no growth. POC Glucose 11/03/18 11/03/18 11/02/18 11:37 06:43 21:34 POC Glucose 155 H 158 H 185 H 11/02/18:17 POC Glucose 174 H Assessment/Plan Hospitalist note: I am seeing this patient in conjunction with Kelli Mcnamara. I independently seen and examined the patient. Progress note above, laboratory data and imaging studies reviewed and I agree with above treatment plan. Patient seen and examined. No acute events overnight. She denied any significant complaints today. Left knee pain is controlled. Her vital signs are stable. - Physical Exam General: Alert, Oriented x3, Cooperative, No apparent distress. HEENT: Atraumatic, PERRLA, EOMI. Neck: Supple, No JVD, Negative Carotid Bruits, Trachea Midline, Thyroid Normal. Lungs: Diminished breath sounds bilateral, otherwise clear, No rhonchi, No wheeze, No rales. Cardiovascular: Regular rate, Regular Rhythm, Normal S1, Normal S2, PMI Normal. Abdomen: Bowel Sounds Present, Soft, Non Tender, Non-Distended, No Hepato- splenomegaly. Extremities: No clubbing, No cyanosis, No edema Skin: No rashes, No breakdown Neurological: Neuro grossly intact Vital Signs are stable. Assessment and plan: #1 acute traumatic: Status post left hip fracture open reduction internal fixation, doing well, awaiting insurance approval for shelter placement. #2 acute non-ST elevation [place]: Secondary to demand ischemia. 2D echocardiogram with ejection fraction of 65%. EKG revealed no acute changes. Cardiology consulted, recommended no interventions at this point or more cardiac workup. She is on metoprolol. #3 right lung PE/left leg DVT: On Eliquis. #4 suspected stroke: MRI brain showed possible bilateral punctate embolic infarctions, acute versus subacute. She has no focal deficit. MRA of the head and neck was unremarkable. 2D echocardiogram reviewed. Patient is on aspirin, statins and Eliquis. Neurology on the case. #5 other chronic medical problems: Stable, continue current medications as above. This note was generated with [employer] dictation software. It may contain incorrect words, spelling, and punctuation that were not noted in checking the note before signing. Code Visit Inpatient E&M: 37828 Subs Hosp L2
--- NOTE | 2018-11-03 14:52 | CASEMGMT ---
Karly, PCU charge, received a call from [facility] stating that [facility] denied one time contract with them d/t there being another facility([place]) within 20 miles that pt could go to. Message left with Suni in TCU to call this RN CM back to see if any beds available at this time as this was one of pt's choices. SStchaka RN CM
[2018-11-03 16:46] LABS: Bedside Glucose 142 mg/dL (70-110)
[2018-11-03] MEDS: Donepezil HCl 5 MG Tablet PO (21:09)
[2018-11-03] MEDS: MELATONIN 10 MG TABLET PO (21:10)
[2018-11-03] MEDS: Atorvastatin Calcium 80 MG Tablet PO (21:10)
[2018-11-03 21:25] LABS: Bedside Glucose 161 mg/dL (70-110)
[2018-11-04] VITALS (8 sets, daily range): BP systolic 149–152; BP diastolic 78–83; PULSE 66–97; RESP 16; TEMP 36.6–36.7; O2SAT 95–97
[2018-11-04] MEDS: Acetaminophen 500 MG Tablet 1000 MG PO ×2 (05:18→13:57)
[2018-11-04 06:56] LABS: Bedside Glucose 156 mg/dL (70-110)
[2018-11-04] MEDS: Insulin Lispro 100 UNIT/ML INSULN.PEN SC ×3 (08:09→16:28)
[2018-11-04] MEDS: Aspirin 81 MG TAB.CHEW PO (08:10)
[2018-11-04] MEDS: Magnesium Oxide 400 MG Tablet PO (08:10)
[2018-11-04] MEDS: Calcium Carb/Vitamin D 1 TABLET Tablet PO ×2 (08:10→16:28)
[2018-11-04] MEDS: Escitalopram Oxalate 10 MG Tablet PO (08:11)
[2018-11-04] MEDS: APIXABAN 5 MG TABLET 10 MG PO (08:11)
[2018-11-04] MEDS: Famotidine 20 MG Tablet PO (08:12)
[2018-11-04] MEDS: Metoprolol(XL)Succ 25 MG Tablet PO (08:12)
[2018-11-04] MEDS: Senna/Docusate Sodium 1 Tablet 2 TABLET PO (08:12)
[2018-11-04 10:56] LABS: Bedside Glucose 158 mg/dL (70-110)
--- NOTE | 2018-11-04 11:13 | CASEMGMT ---
Addendum entered and electronically signed by Lalitha Vidal 11/04/18 13:55: Resource guide provided to patient. Patient was accepting with no questions. Original Note: Addendum entered by Joanne Dalton 11/04/18 12:19: SW has read and approve student note below. Joanne Dalton ANALYTICS SPECIALIST TELEVISION SERVICE ENGINEER Original Note: Social Work Progressive Care Unit Administered PHQ9 to patient due to recent admitting diagnosis of CVA and L hip fracture. Patient report to have little pleasure in doing things due to the loss of her in April 2018. Patient reported that still is in grieving process and is working through the changes. Patient reported to have issues with falling asleep, staying asleep, and getting out of bed. Patient reports this to be due to having little interest in doing things so starting the day and ending the day is difficult. Patient reports the sleeping issues causes the little energy throughout the day. Patient reports to be active in grief counseling through hospice. Patient also reports to have medications Lexapro and Lorazepam as treatment for depression. Patient reports to be doing well with supports of counseling and family. -Lalitha Vidal, [employer] Student Senior Catering Sales Manager.
--- NOTE | 2018-11-04 12:19 | CASEMGMT ---
TCU will have a bed for patient. SW let patient know as well as told her we still have to wait on insurance to approve her to go. TCU pending insurance approval. Joanne KRUEGER
--- NOTE | 2018-11-04 12:59 | PCM.PROGNOTE ---
<Brennan Garcia - Last Filed: 11/04/18 12:59> Patient Problems: Active and Suspected Problems Deep vein thrombosis (DVT) of left lower extremity (Acute) Pulmonary embolism (Acute) Non-ST elevation [place] (NSTEMI) (Acute) Closed left hip fracture (Acute) Subjective: Pt ambulating in room with assistance and with walker. No acute issues. Waiting for placement. - Physical Exam General: Alert, Oriented x3, Cooperative HEENT: Atraumatic, PERRLA, EOMI, Normocephalic Neck: Supple, No JVD, Negative Carotid Bruits Lungs: Clear to auscultation, Normal air movement Cardiovascular: Regular rate, No murmurs Abdomen: Bowel Sounds Present, Soft, Non Tender Extremities: No edema, Capillary Refill Less than 3 Seconds Skin: No rashes, No breakdown Musculoskeletal: No Tenderness to Palpation of Joints or Extremities Neurological: Cranial nerves II-XII grossly intact Psych/Mental Status: Normal Affect, Appropriate, Alert and oriented to time, place, person, mood and affect Vital Signs Temp Pulse Resp BP Pulse Ox 97.9 F 67 16 149/81 H 95 11/04/18 09:00 11/04/18 09:00 11/04/18 09:00 11/04/18 09:00 11/04/18 09:00 Oxygen Flow Rate (L/min) 2 Oxygen Delivery Method Room Air Weight: 159 lb 13.362 oz Body Mass Index (BMI) 24.3 Finger Stick Blood Glucose 166 Intake and Output for Last 24 Hours 11/02/18 11/03/18 11/04/18 23:59 23:59 23:59 Intake Total 1882 / 1882 1000 / 1000 60 / 60 Output Total 1350 / 1350 350 / 350 Balance 532 / 532 650 / 650 60 / 60 Microbiology Past 72 Hours 10/30/18 21:45 Urine Culture - Final Urine Catheter - Antoine GPC Poss Enterococcus sp POC Glucose 11/04/18 11/04/18 11/03/18 10:50 06:51 21:05 POC Glucose 158 H 156 H 161 H 11/03/18 16:26 POC Glucose 142 H Medical Necessity - Tobacco Use Smoking Status: Former smoker - Patient quit approximately 25 years prior to current presentation. Tobacco Use: Non-smoker Assessment/Plan All Active Problems Deep vein thrombosis (DVT) of left lower extremity (Acute) Pulmonary embolism (Acute) Non-ST elevation [place] (NSTEMI) (Acute) Closed left hip fracture (Acute) 1. Left hip fracture secondary to mechanical fall prior to admission status post ORIF 10/29/[address] Pollock. Continue PTOT and plan for placement. She lives alone. 2. Suspected CVA-MRI of brain with possible bilateral punctate embolic infarctions, acute versus subacute. Pt on eliquis, neuro has evaluated the pt. Continue statin. Continue PT/OT/ST 3. NSTEMI type II-secondary to stress as a result of #1 versus severe pulmonary hypertension. Echocardiogram showed an EF of 65%, stage I diastolic dysfunction, RVSP estimated to be 70 mmHg. Cardiology has evaluated the patient - no further cardiac workup now with acute PE. O/p follow up. No EKG changes, continue BB, statin 4. Acute PE - eliquis 5. Type 2 diabetes mellitus-new diagnosis. Hemoglobin A1c 8.9%. on SSI, plan to start Metformin at DC. 6. Anxiety/depression- Lexapro, lorazepam 7. Significant family history of dementia-on Aricept prophylactically. DVT prophylaxis-Eliquis. Discharge planning: SNF, waiting for precert This patient was seen by Brennan Garcia PA-C under the supervision of Doctor Domi. <Anish Duron - Last Filed: 11/04/18 13:46> - Physical Exam Vital Signs Temp Pulse Resp BP Pulse Ox 97.9 F 67 16 149/81 H 95 11/04/18 09:00 11/04/18 09:00 11/04/18 09:00 11/04/18 09:00 11/04/18 09:00 Oxygen Flow Rate (L/min) 2 Oxygen Delivery Method Room Air Weight: 159 lb 13.362 oz Body Mass Index (BMI) 24.3 Finger Stick Blood Glucose 166 Intake and Output for Last 24 Hours 11/02/18 11/03/18 11/04/18 23:59 23:59 23:59 Intake Total 1882 / 1882 1000 / 1000 60 / 60 Output Total 1350 / 1350 350 / 350 Balance 532 / 532 650 / 650 60 / 60 Microbiology Past 72 Hours 10/30/18 21:45 Urine Culture - Final Urine Catheter - Antoine GPC Poss Enterococcus sp POC Glucose 11/04/18 11/04/18 11/03/18 10:50 06:51 21:05 POC Glucose 158 H 156 H 161 H 11/03/18 16:26 POC Glucose 142 H Assessment/Plan Hospitalist note: I am seeing this patient in conjunction with Brennan Garcia. I independently seen and examined the patient. Progress note above reviewed and I agree with above treatment plan. Patient seen and examined. No acute events overnight. She denied any significant complaints today. Left knee pain is controlled. Her vital signs are stable. - Physical Exam General: Alert, Oriented x3, Cooperative, No apparent distress. HEENT: Atraumatic, PERRLA, EOMI. Neck: Supple, No JVD, Negative Carotid Bruits, Trachea Midline, Thyroid Normal. Lungs: Diminished breath sounds bilateral, otherwise clear, No rhonchi, No wheeze, No rales. Cardiovascular: Regular rate, Regular Rhythm, Normal S1, Normal S2, PMI Normal. Abdomen: Bowel Sounds Present, Soft, Non Tender, Non-Distended, No Hepato-splenomegaly. Extremities: No clubbing, No cyanosis, No edema Skin: No rashes, No breakdown Neurological: Neuro grossly intact Vital Signs are stable. Assessment and plan: #1 acute traumatic: Status post left hip fracture open reduction internal fixation, doing well, pain is well controlled. Awaiting insurance approval for detention placement. #2 acute non-ST elevation [place]: Secondary to demand ischemia. Denied any chest pain or shortness of breath. 2D echocardiogram with ejection fraction of 65%. EKG revealed no acute changes. Cardiology consulted, recommended no interventions at this point or more cardiac workup. She is on metoprolol. #3 right lung PE/left leg DVT: On Eliquis. #4 suspected stroke: MRI brain showed possible bilateral punctate embolic infarctions, acute versus subacute. She has no focal deficit. MRA of the head and neck was unremarkable. 2D echocardiogram reviewed. Patient is on aspirin, statins and Eliquis. Neurology on the case. Plan for PT OT. #5 other chronic medical problems: Stable, continue current medications as above. This note was generated with [employer] dictation software. It may contain incorrect words, spelling, and punctuation that were not noted in checking the note before signing. Code Visit Inpatient E&M: 93243 Subs Hosp L2
--- NOTE | 2018-11-04 13:03 | PN_ITS ---
<Brennan Garcia - Last Filed: 11/04/18 12:59> Patient Problems: Active and Suspected Problems Deep vein thrombosis (DVT) of left lower extremity (Acute) Pulmonary embolism (Acute) Non-ST elevation NE (NSTEMI) (Acute) Closed left hip fracture (Acute) Subjective: Pt ambulating in room with assistance and with walker. No acute issues. Waiting for placement. - Physical Exam General: Alert, Oriented x3, Cooperative HEENT: Atraumatic, PERRLA, EOMI, Normocephalic Neck: Supple, No JVD, Negative Carotid Bruits Lungs: Clear to auscultation, Normal air movement Cardiovascular: Regular rate, No murmurs Abdomen: Bowel Sounds Present, Soft, Non Tender Extremities: No edema, Capillary Refill Less than 3 Seconds Skin: No rashes, No breakdown Musculoskeletal: No Tenderness to Palpation of Joints or Extremities Neurological: Cranial nerves II-XII grossly intact Psych/Mental Status: Normal Affect, Appropriate, Alert and oriented to time, place, person, mood and affect Vital Signs Temp Pulse Resp BP Pulse Ox 97.9 F 67 16 149/81 H 95 11/04/18 09:00 11/04/18 09:00 11/04/18 09:00 11/04/18 09:00 11/04/18 09:00 Oxygen Flow Rate (L/min) 2 Oxygen Delivery Method Room Air Weight: 159 lb 13.362 oz Body Mass Index (BMI) 24.3 Finger Stick Blood Glucose 166 Intake and Output for Last 24 Hours 11/02/18 11/03/18 11/04/18 23:59 23:59 23:59 Intake Total 1882 / 1882 1000 / 1000 60 / 60 Output Total 1350 / 1350 350 / 350 Balance 532 / 532 650 / 650 60 / 60 Microbiology Past 72 Hours 10/30/18 21:45 Urine Culture - Final Urine Catheter - Antoine GPC Poss Enterococcus sp POC Glucose 11/04/18 11/04/18 11/03/18 10:50 06:51 21:05 POC Glucose 158 H 156 H 161 H 11/03/18 16:26 POC Glucose 142 H Medical Necessity - Tobacco Use Smoking Status: Former smoker - Patient quit approximately 25 years prior to current presentation. Tobacco Use: Non-smoker Assessment/Plan All Active Problems Deep vein thrombosis (DVT) of left lower extremity (Acute) Pulmonary embolism (Acute) Non-ST elevation NE (NSTEMI) (Acute) Closed left hip fracture (Acute) 1. Left hip fracture secondary to mechanical fall prior to admission status post ORIF 10/29/[address] Pollock. Continue PTOT and plan for placement. She lives alone. 2. Suspected CVA-MRI of brain with possible bilateral punctate embolic infarctions, acute versus subacute. Pt on eliquis, neuro has evaluated the pt. Continue statin. Continue PT/OT/ST 3. NSTEMI type II-secondary to stress as a result of #1 versus severe pulmonary hypertension. Echocardiogram showed an EF of 65%, stage I diastolic dysfunction, RVSP estimated to be 70 mmHg. Cardiology has evaluated the patient - no further cardiac workup now with acute PE. O/p follow up. No EKG changes, continue BB, statin 4. Acute PE - eliquis 5. Type 2 diabetes mellitus-new diagnosis. Hemoglobin A1c 8.9%. on SSI, plan to start Metformin at DC. 6. Anxiety/depression- Lexapro, lorazepam 7. Significant family history of dementia-on Aricept prophylactically. DVT prophylaxis-Eliquis. Discharge planning: SNF, waiting for precert This patient was seen by Brennan Garcia PA-C under the supervision of Doctor Domi. <Anish Druon - Last Filed: 11/04/18 13:46> - Physical Exam Vital Signs Temp Pulse Resp BP Pulse Ox 97.9 F 67 16 149/81 H 95 11/04/18 09:00 11/04/18 09:00 11/04/18 09:00 11/04/18 09:00 11/04/18 09:00 Oxygen Flow Rate (L/min) 2 Oxygen Delivery Method Room Air Weight: 159 lb 13.362 oz Body Mass Index (BMI) 24.3 Finger Stick Blood Glucose 166 Intake and Output for Last 24 Hours 11/02/18 11/03/18 11/04/18 23:59 23:59 23:59 Intake Total 1882 / 1882 1000 / 1000 60 / 60 Output Total 1350 / 1350 350 / 350 Balance 532 / 532 650 / 650 60 / 60 Microbiology Past 72 Hours 10/30/18 21:45 Urine Culture - Final Urine Catheter - Antoine GPC Poss Enterococcus sp POC Glucose 11/04/18 11/04/18 11/03/18 10:50 06:51 21:05 POC Glucose 158 H 156 H 161 H 11/03/18 16:26 POC Glucose 142 H Assessment/Plan Hospitalist note: I am seeing this patient in conjunction with Brennan Garcia. I independently seen and examined the patient. Progress note above reviewed and I agree with above treatment plan. Patient seen and examined. No acute events overnight. She denied any significant complaints today. Left knee pain is controlled. Her vital signs are stable. - Physical Exam General: Alert, Oriented x3, Cooperative, No apparent distress. HEENT: Atraumatic, PERRLA, EOMI. Neck: Supple, No JVD, Negative Carotid Bruits, Trachea Midline, Thyroid Normal. Lungs: Diminished breath sounds bilateral, otherwise clear, No rhonchi, No wheeze, No rales. Cardiovascular: Regular rate, Regular Rhythm, Normal S1, Normal S2, PMI Normal. Abdomen: Bowel Sounds Present, Soft, Non Tender, Non-Distended, No Hepato- splenomegaly. Extremities: No clubbing, No cyanosis, No edema Skin: No rashes, No breakdown Neurological: Neuro grossly intact Vital Signs are stable. Assessment and plan: #1 acute traumatic: Status post left hip fracture open reduction internal fixation, doing well, pain is well controlled. Awaiting insurance approval for long-term placement. #2 acute non-ST elevation NE: Secondary to demand ischemia. Denied any chest pain or shortness of breath. 2D echocardiogram with ejection fraction of 65%. EKG revealed no acute changes. Cardiology consulted, recommended no interventions at this point or more cardiac workup. She is on metoprolol. #3 right lung PE/left leg DVT: On Eliquis. #4 suspected stroke: MRI brain showed possible bilateral punctate embolic infarctions, acute versus subacute. She has no focal deficit. MRA of the head and neck was unremarkable. 2D echocardiogram reviewed. Patient is on aspirin, statins and Eliquis. Neurology on the case. Plan for PT OT. #5 other chronic medical problems: Stable, continue current medications as above. This note was generated with [employer] dictation software. It may contain incorrect words, spelling, and punctuation that were not noted in checking the note before signing. Code Visit Inpatient E&M: 71101 Subs Hosp L2
--- NOTE | 2018-11-04 15:37 | CASEMGMT ---
Insurance approved patient to go to TCU. SW notified Physician Mechanical Meter Tester. SW also notified RN, service secretary, patient, and her daughter. Plan: d/c to TCU under skilled level of care. Joanne KRUEGER
--- NOTE | 2018-11-04 15:48 | PCM.EXTCARCO ---
- Diet 10/31/18 08:18 Diet: Cardiac: Calorie-Controlled Is pt able to select menu?: No How many daily calories?: 1800 calorie - Routine Orders/Code Status Suppository Type: Dulcolax 10mg Suppository Frequency: Daily PRN O2 Frequency: Continuous Routine Lab Work: CBC, BMP - Wound(s) L Knee Wound Type: Abrasion LT LAT HIP AREA Wound Type: Surgical Incision - Therapies Physical Therapy: Eval and Treat Occupational Therapy: Eval and Treat - Problem/Diagnosis (1) CVA (cerebral vascular accident) Status: Acute Current Visit: Yes (2) Diabetes Status: Acute Current Visit: Yes (3) Closed left hip fracture Status: Acute Current Visit: Yes (4) Deep vein thrombosis (DVT) of left lower extremity Status: Acute Current Visit: No (5) Non-ST elevation [place] (NSTEMI) Status: Acute Current Visit: No (6) Pulmonary embolism Status: Acute Current Visit: No (7) Anxiety and depression Status: Chronic Current Visit: Yes (8) Former tobacco use Status: Chronic Current Visit: Yes (9) HTN (hypertension) Status: Chronic Current Visit: No - Allergies/Procedures Done in Hospital Allergies/Adverse Reactions: Allergies Penicillins Allergy (Verified 12/14/14 14:40) Unknown - Dietary and Speech Recommendations Dietitian Recommendations/Changes: Will add Magic cup w/ lunch and dinner tray to increase protein/calorie intake if consumed. - Follow Up Care Primary Care Physician: Marty Steve Chi, MD [Primary Care Provider] -
--- NOTE | 2018-11-04 15:59 | PCM.EXTCARCO ---
- Diet 10/31/18 08:18 Diet: Cardiac: Calorie-Controlled Is pt able to select menu?: No How many daily calories?: 1800 calorie - Routine Orders/Code Status Suppository Type: Dulcolax 10mg Suppository Frequency: Daily PRN O2 Frequency: Continuous Routine Lab Work: CBC - 5 days, BMP - 5 days Code Status: Full Code - Wound(s) L Knee Wound Type: Abrasion LT LAT HIP AREA Wound Type: Surgical Incision - Therapies Physical Therapy: Eval and Treat Occupational Therapy: Eval and Treat - Problem/Diagnosis (1) CVA (cerebral vascular accident) Status: Acute Current Visit: Yes (2) Closed left hip fracture Status: Acute Current Visit: Yes (3) Deep vein thrombosis (DVT) of left lower extremity Status: Acute Current Visit: No (4) Non-ST elevation [place] (NSTEMI) Status: Acute Current Visit: No (5) Pulmonary embolism Status: Acute Current Visit: No (6) Anxiety and depression Status: Chronic Current Visit: Yes (7) Former tobacco use Status: Chronic Current Visit: Yes (8) HTN (hypertension) Status: Chronic Current Visit: No (9) Diabetes Status: Chronic Current Visit: Yes - Allergies/Procedures Done in Hospital Allergies/Adverse Reactions: Allergies Penicillins Allergy (Verified 12/14/14 14:40) Unknown Procedures: 2-D Echocardiogram - Type of Care/Length of Stay Estimated LOS: Convalescent Care Less Than 30 days Type of Care Needed: Skilled Rehab Potential: Fair Prognosis: Fair - Additional Orders/Day of Discharge H&P will serve as current which was dated: 10/28/18 Day of Discharge: 11/04/18 - Dietary and Speech Recommendations Dietitian Recommendations/Changes: Will add Magic cup w/ lunch and dinner tray to increase protein/calorie intake if consumed. - Follow Up Care Primary Care Physician: Marty Steve Chi, MD [Primary Care Provider] - Please follow up with your Primary Care Physician in: 2 weeks Please Follow Up With: Susu Liu MD When: 3-4 weeks Please Follow Up With: Bill Jerez MD When: As directed Please Follow Up With: Korey Pollock MD When: As directed
--- NOTE | 2018-11-04 16:03 | PCM.DC.SUM ---
<Brennan Garcia - Last Filed: 11/04/18 16:06> Discharge Date and Diagnosis Date of Admission: 10/28/18 Date of Discharge: 11/04/18 - Primary Discharge Diagnosis Active and Suspected Problems CVA (cerebral vascular accident) (Acute) Deep vein thrombosis (DVT) of left lower extremity (Acute) Pulmonary embolism (Acute) Non-ST elevation [place] (NSTEMI) (Acute) Closed left hip fracture (Acute) s/p ORIF DMt2 new dx Former smoker HTN HLD Anx/Depression - Secondary Discharge Diagnosis Chronic Problems Diabetes (Chronic) Anxiety and depression (Chronic) Former tobacco use (Chronic) HTN (hypertension) (Chronic) Hospital Course and Treatment Imaging Results: RAD/Cerv Spine 2 or 3 Views IMPRESSION: Anterior cervical disc fusion C5-6 RAD/HIP, UNI W/ Pelvis 2-3 Views IMPRESSION: Nondisplaced Basicervical femoral neck fracture on the left RAD/Knee 4 or More Views IMPRESSION: Normal x-ray examination of the knee. RAD/Shoulder min 2 Views IMPRESSION: Normal x-ray examination of the shoulder. RAD/Hand Min 3 Views IMPRESSION: Normal x-ray examination of the hand. Femur xr FINDINGS: Intramedullary luis and compression screws left femoral neck RAD/Femur Min 2 Views IMPRESSION: Please correlate with clinical service RAD/Femur Min 2 Views IMPRESSION: Status post ORIF left femur CT brain FINDINGS: Normal soft tissue structures. Normal calvarium. Normal size ventricles and extra-axial spaces for the patient's age. Normal white matter tracts of the cerebral hemispheres. Normal basal ganglia and thalami. Normal brainstem. Normal cerebellum. There is no intracranial hemorrhage. There are no findings of an acute ischemic infarction. Normal visualized paranasal sinuses. CT/CTA Head W/WO Contrast IMPRESSION: Normal [place] without a demonstrated aneurysm or hemodynamically significant stenosis. CT/CTA Neck W/WO Contrast IMPRESSION: 1. Normal bilateral cervical carotid and vertebral arteries. 2. 9 mm superior paratracheal lymph node has increased in size since 2017. RAD/Chest 1 View (Portable) IMPRESSION: Left lung airspace disease versus subsegmental atelectasis MRI/Brain without Contrast IMPRESSION: Possible bilateral punctate embolic infarctions, acute versus subacute. Follow-up recommended. Echo: Interpretation Summary Normal LV size. Left ventricular systolic function is normal. The estimated ejection fraction is 65 %. Stage 1 diastolic dysfunction. Mildly decreased right ventricular systolic function Right ventricular systolic pressure estimated to be 70 mmHg. Moderate pulmonary hypertension. Consults: Cardiology - [facility] - Noe Pollock Operations: - - ORIF left hip Procedures: 2-D Echocardiogram Summary of Care Provided: Hospital course: The patient is a 67 year old F with pmhx nicotine abuse, anxiety, dementia, who presented to the ER with c/o fall and left sided hip pain, the ER found to have nondisplaced basicervical femoral neck fracture on the left. Orthopedics was consulted and she was admitted for repair of hip fracture secondary to mechanical fall. She underwent ORIF of the left hip. Day 1 of postop she developed lethargy and right-sided weakness. Neurology was consulted, an MRI was obtained which did demonstrate probable acute embolic strokes. She developed atrial fibrillation, shortness of breath. She was given Cardizem for heart rate. A CT of the chest was obtained and did demonstrate PE. Her troponins were elevated were felt to demonstrate non-STEMI. Cardiology was consulted and noted to prior workup in 2017 and that with the acute PEs further intervention was not indicated at this time. She was placed on Eliquis. She was also placed on aspirin and statin. She was changed to metoprolol for rate control and her non-STEMI. She was provided with PT, OT, and ST. She was recommended to go to care home at discharge given her ongoing weakness, history of falls, stroke. She was agreeable. Also as part of her workup we evaluated her blood sugar and she was found to be diabetic with an A1c of 8.9, she was given sliding scale insulin, transition to metformin at discharge. She was advised to follow-up with orthopedics as directed, follow-up with neurology in 3-4 weeks, follow-up with cardiology as directed, follow-up with her PCP in 1-2 weeks. She was discharged to care home in stable condition. This patient was seen by Bernnan Garcia PA-C under the supervision of Doctor Duron. [] - Physical Exam General: Alert, Oriented x3, Cooperative HEENT: Atraumatic, PERRLA, EOMI, Normocephalic Neck: Supple, No JVD, Negative Carotid Bruits Lungs: Clear to auscultation, Normal air movement Cardiovascular: Regular rate, No murmurs Abdomen: Bowel Sounds Present, Soft, Non Tender Extremities: No edema, Capillary Refill Less than 3 Seconds Skin: No rashes, No breakdown Musculoskeletal: No Tenderness to Palpation of Joints or Extremities Neurological: Cranial nerves II-XII grossly intact Psych/Mental Status: Normal Affect, Appropriate, Alert and oriented to time, place, person, mood and affect Vital Signs Temp Pulse Resp BP Pulse Ox 97.9 F 67 16 149/81 H 95 11/04/18 09:00 11/04/18 09:00 11/04/18 09:00 11/04/18 09:00 11/04/18 09:00 Oxygen Flow Rate (L/min) 2 Oxygen Delivery Method Nasal Cannula Weight: 159 lb 13.362 oz Body Mass Index (BMI) 24.3 Finger Stick Blood Glucose 166 Intake and Output for Last 24 Hours 11/02/18 11/03/18 11/04/18 23:59 23:59 23:59 Intake Total 1882 / 1882 1000 / 1000 300 / 300 Output Total 1350 / 1350 350 / 350 Balance 532 / 532 650 / 650 300 / 300 Microbiology Past 72 Hours 10/30/18 21:45 Urine Culture - Final Urine Catheter - Antoine GPC Poss Enterococcus sp POC Glucose 11/04/18 11/04/18 11/03/18 10:50 06:51 21:05 POC Glucose 158 H 156 H 161 H 11/03/18 16:26 POC Glucose 142 H Discharge Diet: Low fat/ Low Cholesterol, 1800 Calorie Control Diet, 2000 mg Sodium Diet Discharge Activity: Return to Normal Activity Home Medications: Medications to take at Discharge Donepezil HCl [Aricept] 5 mg PO QHS 04/01/17 Escitalopram Oxalate [Lexapro] 10 mg PO DAILY 04/01/17 Multivitamins,Therapeutic [Multivitamin] 1 tablet PO DAILY 04/01/17 Cyanocobalamin (Vitamin B-12) [Vitamin B12] 2,500 mcg PO DAILY 10/28/18 Melatonin 10 mg PO QHS 10/28/18 Acetaminophen [Tylenol Tablet] 650 mg PO Q6H PRN PRN tablet 11/04/18 Albuterol Aerosols [Ventolin Aerosols] 2.5 mg INHALATION Q2H PRN PRN vial.neb. 11/04/18 Apixaban [Eliquis] 10 mg PO BID 11/04/18 Aspirin [Aspirin, Baby] 81 mg PO DAILY@0800 11/04/18 Atorvastatin Calcium [Lipitor] 80 mg PO QHS 11/04/18 Calcium Carb/Vitamin D [Os-Kevin 500MG + D] 1 tablet PO BIDCM 11/04/18 Cholecalciferol (VIT D3) [Vitamin D3] 1,000 unit PO DAILY 11/04/18 Famotidine [Pepcid] 20 mg PO BID 11/04/18 Lorazepam [Ativan] 0.5 mg PO DAILY PRN PRN 3 Days #3 tab 11/04/18 Magnesium Hydroxide [Milk Of Magnesia] 30 ml PO DAILY PRN PRN udc 11/04/18 Magnesium Oxide [Mag-Ox 400] 400 mg PO DAILYCM 11/04/18 Metformin HCl 500 mg PO BID 11/04/18 Metoprolol(XL)Succ [Toprol Xl (Beta [place])] 25 mg PO DAILY 11/04/18 Oxycodone [Oxyir] 5 mg PO Q4H PRN PRN 3 Days #18 tab 11/04/18 Following Prescrptions Were Given to Patient: Oxycodone [Oxyir] 5 mg PO Q4H PRN PRN 3 Days #18 tab PRN Reason: Moderate Pain (4-6/10) Lorazepam [Ativan] 0.5 mg PO DAILY PRN PRN 3 Days #3 tab PRN Reason: Anxiety Primary Care Physician: Marty Steve Chi, MD [Primary Care Provider] - Please follow up with your Primary Care Physician in: 2 weeks Please Follow Up With: Susu Liu MD When: 3-4 weeks Please Follow Up With: Bill Jerez MD When: As directed Please Follow Up With: Korey Pollock MD When: As directed Disposition: Long-Term facility Minutes spent on discharge:: 35 Patient Condition:: Stable Medical Necessity - Tobacco Use Smoking Status: Former smoker - Patient quit approximately 25 years prior to current presentation. Tobacco Use: Non-smoker Meaningful Use Info Meaningful Use Diagnoses (Choose all that apply): VTE - VTE Anticoag overlap given w/in hospital stay or rx'd at dc?: No Pt receive overlap for 5 days?: No Reason overlap not ordered, prescribed, or given for 5 days: Procedure Not Indicated <Anish Duron E - Last Filed: 11/05/18 15:39> Discharge Date and Diagnosis - Primary Discharge Diagnosis Active and Suspected Problems CVA (cerebral vascular accident) (Acute) Deep vein thrombosis (DVT) of left lower extremity (Acute) Pulmonary embolism (Acute) Non-ST elevation [place] (NSTEMI) (Acute) Closed left hip fracture (Acute) - Secondary Discharge Diagnosis Chronic Problems Diabetes (Chronic) Anxiety and depression (Chronic) Former tobacco use (Chronic) HTN (hypertension) (Chronic) Hospital Course and Treatment Summary of Care Provided: Hospitalist note: Discharge summary above reviewed and I agree with above discharge and treatment plan. Patient was admitted because of mechanical fall, found to have nondisplaced basicervical femoral neck fracture on the left side and she underwent open reduction and internal fixation. Her postoperative course complicated by acute non-ST elevation AR and she went into atrial fibrillation. On day 1 postoperatively, patient developed lethargy and right-sided body weakness and she found to have probable acute embolic stroke on MRI brain. Also, she was found to have right lung pulmonary embolism and acute DVT of the left leg and she was started on Eliquis. Her 2D echocardiogram revealed ejection fraction 65%. Cardiology consulted and recommended no indication for further cardiac workup at this time. Patient was treated with Eliquis for acute PE and DVT, started on aspirin and statins for probable acute embolic stroke. Patient was discharged to care home facility in a stable medical condition, discharged on Eliquis, continued on aspirin and statins, recommended follow-up with PCP in 2 weeks, follow-up with neurology in 3-4 weeks, follow-up with cardiology according to Dr. Jerez, follow-up with orthopedic surgery according to Dr. Pollock. - Physical Exam General: Alert, Oriented x3, Cooperative, No apparent distress. HEENT: Atraumatic, PERRLA, EOMI. Neck: Supple, No JVD, Negative Carotid Bruits, Trachea Midline, Thyroid Normal. Lungs: Clear to auscultation, Normal air movement, No rhonchi, No wheeze, No rales. Cardiovascular: Regular rate, Regular Rhythm, Normal S1, Normal S2, PMI Normal. Abdomen: Bowel Sounds Present, Soft, Non Tender, Non-Distended, No Hepato-splenomegaly. Extremities: No clubbing, No cyanosis, No edema Skin: No rashes, No breakdown Neurological: Neuro grossly intact Vital Signs are stable. This note was generated with [employer] dictation software. It may contain incorrect words, spelling, and punctuation that were not noted in checking the note before signing. - Physical Exam Vital Signs Temp Pulse Resp BP Pulse Ox 98.0 F 97 16 149/78 H 97 11/04/18 15:00 11/04/18 15:58 11/04/18 15:00 11/04/18 15:00 11/04/18 15:00 Oxygen Flow Rate (L/min) 2 Oxygen Delivery Method Nasal Cannula Weight: 159 lb 13.362 oz Body Mass Index (BMI) 24.3 Finger Stick Blood Glucose 166 Intake and Output for Last 24 Hours 11/02/18 11/03/18 11/04/18 23:59 23:59 23:59 Intake Total 1882 / 1882 1000 / 1000 300 / 300 Output Total 1350 / 1350 350 / 350 Balance 532 / 532 650 / 650 300 / 300 POC Glucose 11/04/18 11/04/18 11/04/18 16:27 10:50 06:51 POC Glucose 156 H 158 H 156 H 11/03/18 21:05 POC Glucose 161 H Disposition: Long-Term facility Minutes spent on discharge:: 35 Patient Condition:: Stable Meaningful Use Info Meaningful Use Diagnoses (Choose all that apply): VTE - VTE Anticoag overlap given w/in hospital stay or rx'd at dc?: No Pt receive overlap for 5 days?: No Reason overlap not ordered, prescribed, or given for 5 days: Procedure Not Indicated Code Visit Inpatient E&M: 40242 Disch Hosp
--- NOTE | 2018-11-04 16:06 | DS.PCM_ITS ---
<Brennan Garcia - Last Filed: 11/04/18 16:06> Discharge Date and Diagnosis Date of Admission: 10/28/18 Date of Discharge: 11/04/18 - Primary Discharge Diagnosis Active and Suspected Problems CVA (cerebral vascular accident) (Acute) Deep vein thrombosis (DVT) of left lower extremity (Acute) Pulmonary embolism (Acute) Non-ST elevation ID (NSTEMI) (Acute) Closed left hip fracture (Acute) s/p ORIF DMt2 new dx Former smoker HTN HLD Anx/Depression - Secondary Discharge Diagnosis Chronic Problems Diabetes (Chronic) Anxiety and depression (Chronic) Former tobacco use (Chronic) HTN (hypertension) (Chronic) Hospital Course and Treatment Imaging Results: RAD/Cerv Spine 2 or 3 Views IMPRESSION: Anterior cervical disc fusion C5-6 RAD/HIP, UNI W/ Pelvis 2-3 Views IMPRESSION: Nondisplaced Basicervical femoral neck fracture on the left RAD/Knee 4 or More Views IMPRESSION: Normal x-ray examination of the knee. RAD/Shoulder min 2 Views IMPRESSION: Normal x-ray examination of the shoulder. RAD/Hand Min 3 Views IMPRESSION: Normal x-ray examination of the hand. Femur xr FINDINGS: Intramedullary luis and compression screws left femoral neck RAD/Femur Min 2 Views IMPRESSION: Please correlate with clinical service RAD/Femur Min 2 Views IMPRESSION: Status post ORIF left femur CT brain FINDINGS: Normal soft tissue structures. Normal calvarium. Normal size ventricles and extra-axial spaces for the patient's age. Normal white matter tracts of the cerebral hemispheres. Normal basal ganglia and thalami. Normal brainstem. Normal cerebellum. There is no intracranial hemorrhage. There are no findings of an acute ischemic infarction. Normal visualized paranasal sinuses. CT/CTA Head W/WO Contrast IMPRESSION: Normal [place] without a demonstrated aneurysm or hemodynamically significant stenosis. CT/CTA Neck W/WO Contrast IMPRESSION: 1. Normal bilateral cervical carotid and vertebral arteries. 2. 9 mm superior paratracheal lymph node has increased in size since 2017. RAD/Chest 1 View (Portable) IMPRESSION: Left lung airspace disease versus subsegmental atelectasis MRI/Brain without Contrast IMPRESSION: Possible bilateral punctate embolic infarctions, acute versus subacute. Follow-up recommended. Echo: Interpretation Summary Normal LV size. Left ventricular systolic function is normal. The estimated ejection fraction is 65 %. Stage 1 diastolic dysfunction. Mildly decreased right ventricular systolic function Right ventricular systolic pressure estimated to be 70 mmHg. Moderate pulmonary hypertension. Consults: Cardiology - [facility] - Noe Pollock Operations: - - ORIF left hip Procedures: 2-D Echocardiogram Summary of Care Provided: Hospital course: The patient is a 67 year old F with pmhx nicotine abuse, anxiety, dementia, who presented to the ER with c/o fall and left sided hip pain, the ER found to have nondisplaced basicervical femoral neck fracture on the left. Orthopedics was consulted and she was admitted for repair of hip fracture secondary to mechanical fall. She underwent ORIF of the left hip. Day 1 of postop she deve loped lethargy and right-sided weakness. Neurology was consulted, an MRI was obtained which did demonstrate probable acute embolic strokes. She developed atrial fibrillation, shortness of breath. She was given Cardizem for heart rate. A CT of the chest was obtained and did demonstrate PE. Her troponins were elevated were felt to demonstrate non-STEMI. Cardiology was consulted and noted to prior workup in 2017 and that with the acute PEs further intervention was not indicated at this time. She was placed on Eliquis. She was also placed on aspirin and statin. She was changed to metoprolol for rate control and her non-STEMI. She was provided with PT, OT, and ST. She was recommended to go to jail at discharge given her ongoing weakness, history of falls, stroke. She was agreeable. Also as part of her workup we evaluated her blood sugar and she was found to be diabetic with an A1c of 8.9, she was given sliding scale insulin, transition to metformin at discharge. She was advised to follow- up with orthopedics as directed, follow-up with neurology in 3-4 weeks, follow- up with cardiology as directed, follow-up with her PCP in 1-2 weeks. She was discharged to jail in stable condition. This patient was seen by Brennan Garcia PA-C under the supervision of Doctor Domi. [] - Physical Exam General: Alert, Oriented x3, Cooperative HEENT: Atraumatic, PERRLA, EOMI, Normocephalic Neck: Supple, No JVD, Negative Carotid Bruits Lungs: Clear to auscultation, Normal air movement Cardiovascular: Regular rate, No murmurs Abdomen: Bowel Sounds Present, Soft, Non Tender Extremities: No edema, Capillary Refill Less than 3 Seconds Skin: No rashes, No breakdown Musculoskeletal: No Tenderness to Palpation of Joints or Extremities Neurological: Cranial nerves II-XII grossly intact Psych/Mental Status: Normal Affect, Appropriate, Alert and oriented to time, pl [place], person, mood and affect Vital Signs Temp Pulse Resp BP Pulse Ox 97.9 F 67 16 149/81 H 95 11/04/18 09:00 11/04/18 09:00 11/04/18 09:00 11/04/18 09:00 11/04/18 09:00 Oxygen Flow Rate (L/min) 2 Oxygen Delivery Method Nasal Cannula Weight: 159 lb 13.362 oz Body Mass Index (BMI) 24.3 Finger Stick Blood Glucose 166 Intake and Output for Last 24 Hours 11/02/18 11/03/18 11/04/18 23:59 23:59 23:59 Intake Total 1882 / 1882 1000 / 1000 300 / 300 Output Total 1350 / 1350 350 / 350 Balance 532 / 532 650 / 650 300 / 300 Microbiology Past 72 Hours 10/30/18 21:45 Urine Culture - Final Urine Catheter - Antoine [facility] Poss Enterococcus sp POC Glucose 11/04/18 11/04/18 11/03/18 10:50 06:51 21:05 POC Glucose 158 H 156 H 161 H 11/03/18 16:26 POC Glucose 142 H Discharge Diet: Low fat/ Low Cholesterol, 1800 Calorie Control Diet, 2000 mg Sodium Diet Discharge Activity: Return to Normal Activity Home Medications: Medications to take at Discharge Donepezil HCl [Aricept] 5 mg PO QHS 04/01/17 Escitalopram Oxalate [Lexapro] 10 mg PO DAILY 04/01/17 Multivitamins,Therapeutic [Multivitamin] 1 tablet PO DAILY 04/01/17 Cyanocobalamin (Vitamin B-12) [Vitamin B12] 2,500 mcg PO DAILY 10/28/18 Melatonin 10 mg PO QHS 10/28/18 Acetaminophen [Tylenol Tablet] 650 mg PO Q6H PRN PRN tablet 11/04/18 Albuterol Aerosols [Ventolin Aerosols] 2.5 mg INHALATION Q2H PRN PRN vial.neb. 11/04/18 Apixaban [Eliquis] 10 mg PO BID 11/04/18 Aspirin [Aspirin, Baby] 81 mg PO DAILY@0800 11/04/18 Atorvastatin Calcium [Lipitor] 80 mg PO QHS 11/04/18 Calcium Carb/Vitamin D [Os-Kevin 500MG + D] 1 tablet PO BIDCM 11/04/18 Cholecalciferol (VIT D3) [Vitamin D3] 1,000 unit PO DAILY 11/04/18 Famotidine [Pepcid] 20 mg PO BID 11/04/18 Lorazepam [Ativan] 0.5 mg PO DAILY PRN PRN 3 Days #3 tab 11/04/18 Magnesium Hydroxide [Milk Of Magnesia] 30 ml PO DAILY PRN PRN udc 11/04/18 Magnesium Oxide [Mag-Ox 400] 400 mg PO DAILYCM 11/04/18 Metformin HCl 500 mg PO BID 11/04/18 Metoprolol(XL)Succ [Toprol Xl (Beta Talita)] 25 mg PO DAILY 11/04/18 Oxycodone [Oxyir] 5 mg PO Q4H PRN PRN 3 Days #18 tab 11/04/18 Following Prescrptions Were Given to Patient: Oxycodone [Oxyir] 5 mg PO Q4H PRN PRN 3 Days #18 tab PRN Reason: Moderate Pain (4-6/10) Lorazepam [Ativan] 0.5 mg PO DAILY PRN PRN 3 Days #3 tab PRN Reason: Anxiety Primary Care Physician: Marty Steve Chi, MD [Primary Care Provider] - Please follow up with your Primary Care Physician in: 2 weeks Please Follow Up With: Susu Liu MD When: 3-4 weeks Please Follow Up With: Bill Jerez MD When: As directed Please Follow Up With: Korey Pollock MD When: As directed Disposition: Care Home facility Minutes spent on discharge:: 35 Patient Condition:: Stable Medical Necessity - Tobacco Use Smoking Status: Former smoker - Patient quit approximately 25 years prior to current presentation. Tobacco Use: Non-smoker Meaningful Use Info Meaningful Use Diagnoses (Choose all that apply): VTE - VTE Anticoag overlap given w/in hospital stay or rx'd at dc?: No Pt receive overlap for 5 days?: No Reason overlap not ordered, prescribed, or given for 5 days: Procedure Not Indicated <Anish Duron E - Last Filed: 11/05/18 15:39> Discharge Date and Diagnosis - Primary Discharge Diagnosis Active and Suspected Problems CVA (cerebral vascular accident) (Acute) Deep vein thrombosis (DVT) of left lower extremity (Acute) Pulmonary embolism (Acute) Non-ST elevation ID (NSTEMI) (Acute) Closed left hip fracture (Acute) - Secondary Discharge Diagnosis Chronic Problems Diabetes (Chronic) Anxiety and depression (Chronic) Former tobacco use (Chronic) HTN (hypertension) (Chronic) Hospital Course and Treatment Summary of Care Provided: Hospitalist note: Discharge summary above reviewed and I agree with above discharge and treatment plan. Patient was admitted because of mechanical fall, found to have nondisplaced basicervical femoral neck fracture on the left side and she underwent open reduction and internal fixation. Her postoperative course complicated by acute non-ST elevation ID and she went into atrial fibrillation. On day 1 postoperatively, patient developed lethargy and right-sided body weakness and she found to have probable acute embolic stroke on MRI brain. Also, she was found to have right lung pulmonary embolism and acute DVT of the left leg and she was started on Eliquis. Her 2D echocardiogram revealed ejection fraction 65%. Cardiology consulted and recommended no indication for further cardiac workup at this time. Patient was treated with Eliquis for acute PE and DVT, started on aspirin and statins for probable acute embolic stroke. [facility] was [facility] to jail facility in a stable medical condition, discharged on Eliquis, continued on aspirin and statins, recommended follow-up with PCP in 2 weeks, follow-up with neurology in 3-4 weeks, follow-up with cardiology according to Dr. Jerez, follow-up with orthopedic surgery according to Dr. Pollock. - Physical Exam General: Alert, Oriented x3, Cooperative, No apparent distress. HEENT: Atraumatic, PERRLA, EOMI. Neck: Supple, No JVD, Negative Carotid Bruits, Trachea Midline, Thyroid Normal. Lungs: Clear to auscultation, Normal air movement, No rhonchi, No wheeze, No rales. Cardiovascular: Regular rate, Regular Rhythm, Normal S1, Normal S2, PMI Normal. Abdomen: Bowel Sounds Present, Soft, Non Tender, Non-Distended, No Hepato- splenomegaly. Extremities: No clubbing, No cyanosis, No edema Skin: No rashes, No breakdown Neurological: Neuro grossly intact Vital Signs are stable. This note was generated with [employer] dictation software. It may contain incorrect words, spelling, and punctuation that were not noted in checking the note before signing. - Physical Exam Vital Signs Temp Pulse Resp BP Pulse Ox 98.0 F 97 16 149/78 H 97 11/04/18 15:00 11/04/18 15:58 11/04/18 15:00 11/04/18 15:00 11/04/18 15:00 Oxygen Flow Rate (L/min) 2 Oxygen Delivery Method Nasal Cannula Weight: 159 lb 13.362 oz Body Mass Index (BMI) 24.3 Finger Stick Blood Glucose 166 Intake and Output for Last 24 Hours 11/02/18 11/03/18 11/04/18 23:59 23:59 23:59 Intake Total 1882 / 1882 1000 / 1000 300 / 300 Output Total 1350 / 1350 350 / 350 Balance 532 / 532 650 / 650 300 / 300 POC Glucose 11/04/18 11/04/18 11/04/18 16:27 10:50 06:51 POC Glucose 156 H 158 H 156 H 11/03/18 21:05 POC Glucose 161 H Disposition: Care Home facility Minutes spent on discharge:: 35 Patient Condition:: Stable Meaningful Use Info Meaningful Use Diagnoses (Choose all that apply): VTE - VTE Anticoag overlap given w/in hospital stay or rx'd at dc?: No Pt receive overlap for 5 days?: No Reason overlap not ordered, prescribed, or given for 5 days: Procedure Not Indicated Code Visit Inpatient E&M: 48162 Disch Hosp
[2018-11-04 16:41] LABS: Bedside Glucose 156 mg/dL (70-110)
== END 2018-11-04 17:56 | disposition skilled nursing facility (03) | DRG 480 ==
LOC: ED 17:25 → MS3 19:41 → ICU 10-30 15:25 → PCU 10-31 09:43
PROVIDERS: Internal Medicine; Specialist; Admitting Provider Family Medicine; Emergency Provider Emergency Medicine; Family Provider Family Medicine Geriatric Medicine; PCP Family Medicine Geriatric Medicine; Visit Provider Hospitalist
PROC: 0QS706Z Reposition Left Upper Femur with Intramedullary Internal Fixation Device, Open Approach (ICD-10-PCS; CPT 27245; principal; 2018-10-29 14:30)
DX: S72.002A Fracture of unspecified part of neck of left femur, initial encounter for closed fracture (principal); I63.9 Cerebral infarction, unspecified; I26.99 Other pulmonary embolism without acute cor pulmonale; I21.A1 Myocardial infarction type 2; G81.91 Hemiplegia, unspecified affecting right dominant side; I82.402 Acute embolism and thrombosis of unspecified deep veins of left lower extremity; W01.0XXA Fall on same level from slipping, tripping and stumbling without subsequent striking against object, initial encounter; Y92.015 Private garage of single-family (private) house as the place of occurrence of the external cause; Z87.891 Personal history of nicotine dependence; F32.9 Major depressive disorder, single episode, unspecified; E78.5 Hyperlipidemia, unspecified; E11.9 Type 2 diabetes mellitus without complications; I10 Essential (primary) hypertension; F41.9 Anxiety disorder, unspecified
CPT/HCPCS: 36415; 36600; 70450; 70496; 70498; 70551; 71045; 71275; 72040; 73030; 73130; 73502; 73552; 73564; 76000; 80048; 80053; 80061; 81001; 82803; 82962; 83036; 83735; 83880; 84100; 84439; 84443; 84484; 85025; 85027; 85610; 85730; 86850; 86900; 87086; 87088; 92610; 93005; 93306; 93970; 94640; 97110; 97116; 97163; 97165; 97530; 97535; 97802; 99251; 99285; C1713; C1776; J7030; Q9957; Q9967; A4216; G0463; J2310; J2405

== ENCOUNTER 2018-11-04 18:05 | Inpatient (IN) | payer MEDICARE, SELFPAY ==
[2018-10-29 09:31] VITALS: BMI 24.3
[2018-11-04 18:20] VITALS: BP 152/68; PULSE 79; RESP 18; TEMP 36.6; O2SAT 95
--- NOTE | 2018-11-04 18:24 | NURSING ---
pt arrived via wc from [facility] @ [id number]
[2018-11-04 18:27] VITALS: BMI 24.1
[2018-11-04 18:32] VITALS: BMI 24.1
[2018-11-04 19:35] VITALS: PULSE 70; O2SAT 94
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
[2018-11-04] MEDS: MELATONIN 10 MG TABLET PO (20:47)
[2018-11-04] MEDS: Acetaminophen 500 MG Tablet 1000 MG PO (20:48)
[2018-11-04] MEDS: Donepezil HCl 5 MG Tablet PO (20:48)
[2018-11-04] MEDS: Atorvastatin Calcium 80 MG Tablet PO (20:48)
[2018-11-04] MEDS: Menthol/Lanolin/Calamine/Znox 113 GM Tube 1 APPLIC TOPICAL (20:54)
[2018-11-04 21:05] LABS: Bedside Glucose 151 mg/dL (70-110)
[2018-11-04] MEDS: oxyCODONE 5 MG Tablet PO (21:54)
[2018-11-05] MEDS: Nystatin Powder 15gm Bottle 1 APPLIC TOPICAL ×2 (05:45→21:06)
[2018-11-05] MEDS: Menthol/Lanolin/Calamine/Znox 113 GM Tube 1 APPLIC TOPICAL ×2 (05:47→21:06)
[2018-11-05] MEDS: APIXABAN 5 MG TABLET 10 MG PO ×2 (05:53→16:53)
[2018-11-05] MEDS: Famotidine 20 MG Tablet PO ×2 (05:53→16:53)
[2018-11-05] MEDS: Acetaminophen 500 MG Tablet 1000 MG PO ×3 (05:53→21:07)
[2018-11-05] MEDS: Escitalopram Oxalate 10 MG Tablet PO (05:53)
[2018-11-05 05:54] VITALS: BP 150/72; PULSE 68
[2018-11-05 05:54] LABS: Absolute Lymphocyte Count 1.67 X10^3/ul (0.83-4.51); Absolute Neutrophil Count 5.8 X10^3/uL (2.0-7.7); Basophil# 0.04 X10^3/uL; Basophil% 0.5 % (0-1); Eosinophil# 0.29 X10^3/uL; Eosinophils% 3.4 % (0-5); Hematocrit 30.4 % (37-47); Lymphocyte # 1.67 X10^3/ul (4.0); Lymphocyte % 19.5 % (19-41); Mean Corp Hgb Conc 32.9 g/gl (32-36); Mean Corpuscular Hgb 30.7 pg (27.0-32.0); Mean Corpuscular Volume 93.3 fL (81-99); Mean Platelet Vol. 9.9 fl (6.2-12.0); Monocyte% 8.2 % (0-10); Neutrophil # 5.79 X10^3/uL (2.7-7.7); Neutrophil % 67.6 % (47-70); Platelet Count 366 K/mm3 (150-450); RBC Distribution Width CV 13.4 % (11.6-14.6); RBC Distribution Width SD 45.4 fl (35.1-43.9); Red Blood Count 3.26 M/mm3 (4.2-5.4); White Blood Count 8.6 K/mm3 (4.4-11.0)
[2018-11-05] MEDS: Metoprolol(XL)Succ 25 MG Tablet PO (05:54)
[2018-11-05 05:56] LABS: POSITIVE COUNT NO; POSITIVE DIFFERENTIAL NO; POSITIVE MORPHOLOGY NO
[2018-11-05 06:12] LABS: Anion Gap 6 (5-15); BUN 10 mg/dL (7-18); BUN/Creat Ratio 24.4 RATIO (10-20); Calcium,Total 8.5 mg/dL (8.5-10.1); Chloride 105 mmol/L (98-107); Creatinine, Serum 0.41 mg/dL (0.55-1.02); EST Glomerular Filtration Rate 164 mL/min (>60); Est Glom Filt Rate - Afr Amer 198 mL/min (>60); Estimated Creatinine Clearance 51.63 ml/min; Glucose 159 mg/dL (74-106); Potassium 3.3 mmol/L (3.5-5.1); Sodium Level 139 mmol/L (136-145)
[2018-11-05 06:50] LABS: Bedside Glucose 164 mg/dL (70-110)
--- NOTE | 2018-11-05 09:20 | NURSING ---
Dr. Steve reviewed labs, new order to KCL 40mEq x1 now, recheck BMP in AM.
[2018-11-05] MEDS: Calcium Carb/Vitamin D 1 TABLET Tablet PO ×2 (09:22→16:53)
[2018-11-05] MEDS: Magnesium Oxide 400 MG Tablet PO (09:23)
[2018-11-05] MEDS: Multivitamins,Therapeutic Tablet 1 TABLET PO (09:23)
[2018-11-05] MEDS: Tuberculin,Purif.prot.deriv. 50 TU/ML Vial 5 ML ID (09:28)
[2018-11-05 11:15] LABS: Bedside Glucose 155 mg/dL (70-110)
--- NOTE | 2018-11-05 12:25 | CASEMGMT ---
Insurance: TC from Natalie at [facility]. Clinical update due 11/11/18 before noon. Auth # [id number]. BETH Kline
[2018-11-05 15:23] VITALS: BP 152/76; PULSE 88; RESP 18; TEMP 36.4; O2SAT 97
[2018-11-05 16:37] VITALS: O2SAT 97
[2018-11-05 17:06] LABS: Bedside Glucose 128 mg/dL (70-110)
[2018-11-05] MEDS: Donepezil HCl 5 MG Tablet PO (21:05)
[2018-11-05] MEDS: MELATONIN 10 MG TABLET PO (21:06)
[2018-11-05] MEDS: Atorvastatin Calcium 80 MG Tablet PO (21:06)
[2018-11-05 21:11] VITALS: PULSE 83; O2SAT 97
[2018-11-06] MEDS: Menthol/Lanolin/Calamine/Znox 113 GM Tube 1 APPLIC TOPICAL ×2 (06:13→21:10)
[2018-11-06 06:14] VITALS: BP 154/79; PULSE 84
[2018-11-06] MEDS: Metoprolol(XL)Succ 25 MG Tablet PO (06:14)
[2018-11-06] MEDS: Nystatin Powder 15gm Bottle 1 APPLIC TOPICAL ×2 (06:14→21:11)
[2018-11-06] MEDS: APIXABAN 5 MG TABLET 10 MG PO ×2 (06:14→17:09)
[2018-11-06] MEDS: Famotidine 20 MG Tablet PO ×2 (06:14→17:09)
[2018-11-06] MEDS: Escitalopram Oxalate 10 MG Tablet PO (06:14)
[2018-11-06] MEDS: Acetaminophen 500 MG Tablet 1000 MG PO ×3 (06:15→21:07)
[2018-11-06 06:41] LABS: Bedside Glucose 132 mg/dL (70-110)
[2018-11-06 07:26] LABS: Anion Gap 9 (5-15); BUN 15 mg/dL (7-18); BUN/Creat Ratio 34.6 RATIO (10-20); Calcium,Total 8.7 mg/dL (8.5-10.1); Chloride 104 mmol/L (98-107); Creatinine, Serum 0.43 mg/dL (0.55-1.02); EST Glomerular Filtration Rate 153 mL/min (>60); Est Glom Filt Rate - Afr Amer 185 mL/min (>60); Estimated Creatinine Clearance 51.63 ml/min; Glucose 141 mg/dL (74-106); Potassium 3.7 mmol/L (3.5-5.1); Sodium Level 138 mmol/L (136-145)
[2018-11-06 07:49] VITALS: O2SAT 98
[2018-11-06] MEDS: Magnesium Oxide 400 MG Tablet PO (08:16)
[2018-11-06] MEDS: Calcium Carb/Vitamin D 1 TABLET Tablet PO ×2 (08:16→17:08)
[2018-11-06] MEDS: Multivitamins,Therapeutic Tablet 1 TABLET PO (08:16)
[2018-11-06 11:00] LABS: Bedside Glucose 161 mg/dL (70-110)
[2018-11-06] MEDS: oxyCODONE 5 MG Tablet PO (14:03)
[2018-11-06 15:44] VITALS: BP 127/69; PULSE 65; RESP 18; TEMP 36.8; O2SAT 94
[2018-11-06 17:21] LABS: Bedside Glucose 149 mg/dL (70-110)
[2018-11-06] MEDS: Donepezil HCl 5 MG Tablet PO (21:07)
[2018-11-06] MEDS: MELATONIN 10 MG TABLET PO (21:07)
[2018-11-06] MEDS: Atorvastatin Calcium 80 MG Tablet PO (21:07)
[2018-11-06 21:40] LABS: Bedside Glucose 157 mg/dL (70-110)
[2018-11-07] MEDS: Acetaminophen 500 MG Tablet 1000 MG PO ×3 (05:57→20:57)
[2018-11-07 05:58] VITALS: BP 138/79; PULSE 72
[2018-11-07] MEDS: APIXABAN 5 MG TABLET 10 MG PO ×2 (05:58→16:52)
[2018-11-07] MEDS: Metoprolol(XL)Succ 25 MG Tablet PO (05:58)
[2018-11-07] MEDS: Famotidine 20 MG Tablet PO ×2 (05:58→16:52)
[2018-11-07] MEDS: Escitalopram Oxalate 10 MG Tablet PO (05:58)
[2018-11-07] MEDS: Menthol/Lanolin/Calamine/Znox 113 GM Tube 1 APPLIC TOPICAL ×2 (06:02→20:59)
[2018-11-07] MEDS: Nystatin Powder 15gm Bottle 1 APPLIC TOPICAL ×2 (06:02→21:00)
[2018-11-07 06:45] LABS: Bedside Glucose 142 mg/dL (70-110)
[2018-11-07 07:28] VITALS: O2SAT 98
[2018-11-07] MEDS: Magnesium Oxide 400 MG Tablet PO (07:59)
[2018-11-07] MEDS: Calcium Carb/Vitamin D 1 TABLET Tablet PO ×2 (07:59→16:52)
[2018-11-07] MEDS: Multivitamins,Therapeutic Tablet 1 TABLET PO (07:59)
[2018-11-07 15:22] VITALS: BP 144/74; PULSE 68; RESP 20; TEMP 37; O2SAT 95
[2018-11-07 17:16] LABS: Bedside Glucose 140 mg/dL (70-110)
[2018-11-07] MEDS: Donepezil HCl 5 MG Tablet PO (20:57)
[2018-11-07] MEDS: MELATONIN 10 MG TABLET PO (20:57)
[2018-11-07] MEDS: Atorvastatin Calcium 80 MG Tablet PO (20:58)
[2018-11-07 21:16] LABS: Bedside Glucose 137 mg/dL (70-110)
[2018-11-08 06:29] VITALS: BP 150/79; PULSE 75
[2018-11-08] MEDS: Famotidine 20 MG Tablet PO ×2 (06:29→17:55)
[2018-11-08] MEDS: APIXABAN 5 MG TABLET 10 MG PO ×2 (06:29→17:54)
[2018-11-08] MEDS: Metoprolol(XL)Succ 25 MG Tablet PO (06:29)
[2018-11-08] MEDS: Escitalopram Oxalate 10 MG Tablet PO (06:29)
[2018-11-08] MEDS: Acetaminophen 500 MG Tablet 1000 MG PO ×3 (06:29→21:22)
[2018-11-08] MEDS: Nystatin Powder 15gm Bottle 1 APPLIC TOPICAL ×2 (06:30→21:23)
[2018-11-08] MEDS: Menthol/Lanolin/Calamine/Znox 113 GM Tube 1 APPLIC TOPICAL ×2 (06:30→21:23)
[2018-11-08 06:40] LABS: Bedside Glucose 120 mg/dL (70-110)
[2018-11-08 07:18] VITALS: O2SAT 97
[2018-11-08] MEDS: Multivitamins,Therapeutic Tablet 1 TABLET PO (08:32)
[2018-11-08] MEDS: Magnesium Oxide 400 MG Tablet PO (08:32)
[2018-11-08] MEDS: Calcium Carb/Vitamin D 1 TABLET Tablet PO ×2 (08:32→17:55)
[2018-11-08 08:36] VITALS: O2SAT 98
--- NOTE | 2018-11-08 08:36 | NURSING ---
pt sat 98% on 2 liter O2, decreased to 1 liter. pt does not wear O2 at home. sat 97% on 1 liter at this time.
--- NOTE | 2018-11-08 10:32 | PCM.PN.RX ---
Progress Note - Pharmacy Subjective: TCU Admission Objective: Allergies Penicillins Allergy (Verified 12/14/14 14:40) Unknown Current Medications Generic Name Dose Route Start Last Admin Trade Name Freq PRN Reason Stop Dose Admin Acetaminophen 1,000 mg 11/04/18 20:00 11/08/18 06:29 Tylenol PO 1,000 mg TID [facility] Administration Albuterol Sulfate 2.5 mg 11/04/18 18:24 Ventolin Aerosols INHALATION Q2H PRN PRN dyspnea, wheezing Apixaban 10 mg 11/05/18 06:00 11/08/18 06:29 Eliquis PO 11/08/18 18:01 10 mg BID [facility] Administration Apixaban 5 mg 11/09/18 06:00 Eliquis PO BID [facility] Atorvastatin Calcium 80 mg 11/04/18 22:00 11/07/18 20:58 Lipitor PO 80 mg QHS [facility] Administration Calamine/Phenol 1 applic 11/04/18 22:00 11/08/18 06:30 Calmoseptine Ointment TOPICAL 1 applicatio 0600,2200 [facility] Administration Protocol Calcium/Vitamin D 1 tablet 11/05/18 08:00 11/08/18 08:32 Os-Kevin 500mg + [facility] Cholecalciferol 1,000 unit 11/05/18 06:00 11/08/18 06:29 Vitamin D PO 1,000 unit DAILY [facility] Administration Donepezil HCl 5 mg 11/04/18 22:00 11/07/18 20:57 Aricept PO 5 mg QHS [facility] Administration Escitalopram Oxalate 10 mg 11/05/18 06:00 11/08/18 06:29 Lexapro PO 10 mg DAILY [facility] Administration Famotidine 20 mg 11/05/18 06:00 11/08/18 06:29 Pepcid PO 20 mg BID [facility] Administration Lorazepam 0.5 mg 11/04/18 18:24 Ativan PO DAILY PRN PRN ANXIETY Magnesium Hydroxide 30 ml 11/04/18 18:24 Milk Of Magnesia PO DAILY PRN PRN Constipation Magnesium Oxide 400 mg 11/05/18 08:00 11/08/18 08:32 Mag-Ox 400 PO 11/08/18 23:59 400 mg DAILYCM [facility] Administration Melatonin 10 mg 11/04/18 22:00 11/07/18 20:57 Melatonin PO 10 mg QHS [facility] Administration Metformin HCl 500 mg 11/05/18 08:00 11/08/18 08:32 Glucophage PO 500 mg BIDCM [facility] Administration Metoprolol Succinate 25 mg 11/05/18 06:00 11/08/18 06:29 Toprol Xl (Beta Talita) PO 25 mg DAILY [facility] Administration Multi-Ingredient Cream 1 applic 11/05/18 06:00 11/08/18 06:31 Eucerin TOPICAL 1 applicatio 06,0 [facility] Administration Protocol Multivitamins 1 tablet 11/05/18 08:00 11/08/18 08:32 Multivitamin PO 1 tablet DAILYCM [facility] Administration Nystatin 1 applic 11/05/18 06:00 11/08/18 06:30 Mycostatin Powder TOPICAL 1 applicatio 06,0 [facility] Administration Protocol Oxycodone HCl 5 mg 11/04/18 18:24 11/06/18 14:03 Oxyir PO 5 mg Q4H PRN PRN Administration Moderate Pain (4-6/10) Tuberculin PPD 5 tu 11/12/18 10:00 Tubersol, Aplisol, Ppd ID 11/12/18 10:01 X1 ONE Vital Signs Temp Pulse Resp BP Pulse Ox 98.6 F 75 20 H 150/79 H 98 11/07/18 15:22 11/08/18 06:29 11/07/18 15:22 11/08/18 06:29 11/08/18 08:36 Oxygen Flow Rate (L/min) 2 Oxygen Delivery Method Nasal Cannula Weight: 69.9 kg Body Mass Index (BMI) 24.1 Finger Stick Blood Glucose 166 Sodium 138 mmol/L (136-145) 11/06/18 06:45 Potassium 3.7 mmol/L (3.5-5.1) 11/06/18 06:45 Chloride 104 mmol/L (98-107) 11/06/18 06:45 Carbon Dioxide 25.0 mmol/L (21.0-32.0) 11/06/18 06:45 Anion Gap 9 (5-15) 11/06/18 06:45 BUN 15 mg/dL (7-18) 11/06/18 06:45 Creatinine 0.43 mg/dL (0.55-1.02) L 11/06/18 06:45 Est GFR (MDRD) Af Amer 185 mL/min (>60) 11/06/18 06:45 Est GFR (MDRD) Non-Af 153 mL/min (>60) 11/06/18 06:45 BUN/Creatinine Ratio 34.6 RATIO (10-20) H 11/06/18 06:45 Glucose 141 mg/dL (74-106) H 11/06/18 06:45 Assessment/Plan: 1) Pain APAP, oxycodone for moderate pain. Continue to monitor daily pain scores, prn medication use. 2) AFib/DVT/PE Apixaban, metoprolol. Continue to monitor BP/HR, s/s bleeding/clot. 3) DM2 Metformin, atorvastatin. Continue to monitor BGT, renal function, lipids. 4) GI Famotidine. Continue to monitor s/s GI distress. 5) Nutrition Multivitamin, Mg, Ca/D, D. Continue to monitor electrolytes. 6) Sleep Melatonin. Continue to monitor for insomnia. 7) Alzheimers Donepezil. Continue to monitor clinically. Psychotropic Medications: 8) Anxiety/Depression Escitalopram, lorazepam prn. Continue to monitor prn medication use, for anxiety/depression. Unnecessary Medications: None Bowel Regimen: 9) MgOH prn. Continue to monitor prn medication use, for constipation/diarrhea. Date of Note:: 11/08/18 - Provider Comments Provider responsibility: Provider responsible to enter orders to implement recommendations
[2018-11-08 11:00] LABS: Bedside Glucose 140 mg/dL (70-110)
--- NOTE | 2018-11-08 11:03 | PHA.CONS_ITS ---
Progress Note - Pharmacy Subjective: TCU Admission Objective: Allergies Penicillins Allergy (Verified 12/14/14 14:40) Unknown Current Medications Generic Name Dose Route Start Last Admin Trade Name Freq PRN Reason Stop Dose Admin Acetaminophen 1,000 mg 11/04/18 20:00 11/08/18 06:29 Tylenol PO 1,000 mg TID [facility] Administration Albuterol Sulfate 2.5 mg 11/04/18 18:24 Ventolin Aerosols INHALATION Q2H PRN PRN dyspnea, wheezing Apixaban 10 mg 11/05/18 06:00 11/08/18 06:29 Eliquis PO 11/08/18 18:01 10 mg BID [facility] Administration Apixaban 5 mg 11/09/18 06:00 Eliquis PO BID [facility] Atorvastatin Calcium 80 mg 11/04/18 22:00 11/07/18 20:58 Lipitor PO 80 mg QHS [facility] Administration Calamine/Phenol 1 applic 11/04/18 22:00 11/08/18 06:30 Calmoseptine Ointment TOPICAL 1 applicatio 0600,2200 [facility] Administration Protocol Calcium/Vitamin D 1 tablet 11/05/18 08:00 11/08/18 08:32 Os-Kevin 500mg + [facility] Cholecalciferol 1,000 unit 11/05/18 06:00 11/08/18 06:29 Vitamin D PO 1,000 unit DAILY [facility] Administration Donepezil HCl 5 mg 11/04/18 22:00 11/07/18 20:57 Aricept PO 5 mg QHS [facility] Administration Escitalopram Oxalate 10 mg 11/05/18 06:00 11/08/18 06:29 Lexapro PO 10 mg DAILY [facility] Administration Famotidine 20 mg 11/05/18 06:00 11/08/18 06:29 Pepcid PO 20 mg BID [facility] Administration Lorazepam 0.5 mg 11/04/18 18:24 Ativan PO DAILY PRN PRN ANXIETY Magnesium Hydroxide 30 ml 11/04/18 18:24 Milk Of Magnesia PO DAILY PRN PRN Constipation Magnesium Oxide 400 mg 11/05/18 08:00 11/08/18 08:32 Mag-Ox 400 PO 11/08/18 23:59 400 mg DAILYCM [facility] Administration Melatonin 10 mg 11/04/18 22:00 11/07/18 20:57 Melatonin PO 10 mg QHS [facility] Administration Metformin HCl 500 mg 11/05/18 08:00 11/08/18 08:32 Glucophage PO 500 mg BIDCM [facility] Administration Metoprolol Succinate 25 mg 11/05/18 06:00 11/08/18 06:29 Toprol Xl (Beta Talita) PO 25 mg DAILY [facility] Administration Multi-Ingredient Cream 1 applic 11/05/18 06:00 11/08/18 06:31 Eucerin TOPICAL 1 applicatio 06,0 [facility] Administration Protocol Multivitamins 1 tablet 11/05/18 08:00 11/08/18 08:32 Multivitamin PO 1 tablet DAILYCM [facility] Administration Nystatin 1 applic 11/05/18 06:00 11/08/18 06:30 Mycostatin Powder TOPICAL 1 applicatio 06,0 [facility] Administration Protocol Oxycodone HCl 5 mg 11/04/18 18:24 11/06/18 14:03 Oxyir PO 5 mg Q4H PRN PRN Administration Moderate Pain (4-6/10) Tuberculin PPD 5 tu 11/12/18 10:00 Tubersol, Aplisol, Ppd ID 11/12/18 10:01 X1 ONE Vital Signs Temp Pulse Resp BP Pulse Ox 98.6 F 75 20 H 150/79 H 98 11/07/18 15:22 11/08/18 06:29 11/07/18 15:22 11/08/18 06:29 11/08/18 08:36 Oxygen Flow Rate (L/min) 2 Oxygen Delivery Method Nasal Cannula Weight: 69.9 kg Body Mass Index (BMI) 24.1 Finger Stick Blood Glucose 166 Sodium 138 mmol/L (136-145) 11/06/18 06:45 Potassium 3.7 mmol/L (3.5-5.1) 11/06/18 06:45 Chloride 104 mmol/L (98-107) 11/06/18 06:45 Carbon Dioxide 25.0 mmol/L (21.0-32.0) 11/06/18 06:45 Anion Gap 9 (5-15) 11/06/18 06:45 BUN 15 mg/dL (7-18) 11/06/18 06:45 Creatinine 0.43 mg/dL (0.55-1.02) L 11/06/18 06:45 Est GFR (MDRD) Af Amer 185 mL/min (>60) 11/06/18 06:45 Est GFR (MDRD) Non-Af 153 mL/min (>60) 11/06/18 06:45 BUN/Creatinine Ratio 34.6 RATIO (10-20) H 11/06/18 06:45 Glucose 141 mg/dL (74-106) H 11/06/18 06:45 Assessment/Plan: 1) Pain APAP, oxycodone for moderate pain. Continue to monitor daily pain scores, prn medication use. 2) AFib/DVT/PE Apixaban, metoprolol. Continue to monitor BP/HR, s/s bleeding/clot. 3) DM2 Metformin, atorvastatin. Continue to monitor BGT, renal function, lipids. 4) GI Famotidine. Continue to monitor s/s GI distress. 5) Nutrition Multivitamin, Mg, Ca/D, D. Continue to monitor electrolytes. 6) Sleep Melatonin. Continue to monitor for insomnia. 7) Alzheimers Donepezil. Continue to monitor clinically. Psychotropic Medications: 8) Anxiety/Depression Escitalopram, lorazepam prn. Continue to monitor prn medication use, for anxiety/depression. Unnecessary Medications: None Bowel Regimen: 9) MgOH prn. Continue to monitor prn medication use, for constipation/diarrhea. Date of Note:: 11/08/18 - Provider Comments Provider responsibility: Provider responsible to enter orders to implement recommendations
[2018-11-08] MEDS: oxyCODONE 5 MG Tablet PO (13:09)
[2018-11-08 16:00] VITALS: BP 131/75; PULSE 80; RESP 18; TEMP 35.9; O2SAT 97
[2018-11-08 17:21] LABS: Bedside Glucose 150 mg/dL (70-110)
--- NOTE | 2018-11-08 17:57 | NURSING ---
pt weaned to 1L at lunch time, pt moved from bed to chair for supper and said she blew her nose and forgot to put NC back on, SPo2 @ 96, tubing is next to patient but suggested she can leave off until bed time and to call if feel SOB symptoms, Recheck at this time 97%, pt sitting in chair eating dinner
[2018-11-08 21:00] VITALS: O2SAT 95
[2018-11-08] MEDS: Atorvastatin Calcium 80 MG Tablet PO (21:22)
[2018-11-08] MEDS: MELATONIN 10 MG TABLET PO (21:22)
[2018-11-08] MEDS: Donepezil HCl 5 MG Tablet PO (21:22)
[2018-11-08 21:30] LABS: Bedside Glucose 133 mg/dL (70-110)
[2018-11-09 06:06] VITALS: BP 135/69; PULSE 76
[2018-11-09] MEDS: APIXABAN 5 MG TABLET PO ×2 (06:06→17:10)
[2018-11-09] MEDS: Acetaminophen 500 MG Tablet 1000 MG PO ×3 (06:06→21:18)
[2018-11-09] MEDS: Famotidine 20 MG Tablet PO ×2 (06:06→17:09)
[2018-11-09] MEDS: Metoprolol(XL)Succ 25 MG Tablet PO (06:06)
[2018-11-09] MEDS: Menthol/Lanolin/Calamine/Znox 113 GM Tube 1 APPLIC TOPICAL ×2 (06:08→21:25)
[2018-11-09] MEDS: Nystatin Powder 15gm Bottle 1 APPLIC TOPICAL ×2 (06:08→21:25)
[2018-11-09 07:00] LABS: Bedside Glucose 127 mg/dL (70-110)
[2018-11-09 07:05] LABS: Bedside Glucose 143 mg/dL (70-110)
[2018-11-09] MEDS: Multivitamins,Therapeutic Tablet 1 TABLET PO (08:32)
[2018-11-09] MEDS: Escitalopram Oxalate 10 MG Tablet PO (08:32)
[2018-11-09] MEDS: Calcium Carb/Vitamin D 1 TABLET Tablet PO ×2 (08:32→17:10)
[2018-11-09 08:39] VITALS: O2SAT 94
[2018-11-09 16:00] VITALS: BP 124/48; PULSE 74; RESP 14; TEMP 36.7; O2SAT 92
--- NOTE | 2018-11-09 18:17 | NURSING ---
pt c/o loose stools feels its the metformin, dr shoemaker updated, new order to dc
[2018-11-09] MEDS: Donepezil HCl 5 MG Tablet PO (21:18)
[2018-11-09] MEDS: Atorvastatin Calcium 80 MG Tablet PO (21:18)
[2018-11-09] MEDS: MELATONIN 10 MG TABLET PO (21:18)
[2018-11-10] MEDS: APIXABAN 5 MG TABLET PO ×2 (05:45→17:12)
[2018-11-10 05:46] VITALS: BP 129/76; PULSE 70
[2018-11-10] MEDS: Famotidine 20 MG Tablet PO ×2 (05:46→17:11)
[2018-11-10] MEDS: Nystatin Powder 15gm Bottle 1 APPLIC TOPICAL ×2 (05:46→21:28)
[2018-11-10] MEDS: Metoprolol(XL)Succ 25 MG Tablet PO (05:46)
[2018-11-10] MEDS: Acetaminophen 500 MG Tablet 1000 MG PO ×3 (05:46→21:29)
[2018-11-10] MEDS: Menthol/Lanolin/Calamine/Znox 113 GM Tube 1 APPLIC TOPICAL ×2 (05:46→21:27)
[2018-11-10 06:41] LABS: Bedside Glucose 150 mg/dL (70-110)
[2018-11-10 06:55] VITALS: O2SAT 94
[2018-11-10] MEDS: Escitalopram Oxalate 10 MG Tablet PO (09:36)
[2018-11-10] MEDS: Multivitamins,Therapeutic Tablet 1 TABLET PO (09:36)
[2018-11-10] MEDS: Calcium Carb/Vitamin D 1 TABLET Tablet PO ×2 (09:36→17:11)
[2018-11-10 15:57] VITALS: BP 122/66; PULSE 78; RESP 16; TEMP 36.1; O2SAT 96
--- NOTE | 2018-11-10 16:55 | CHAPLAIN ---
Type of Pastoral Visit ___ Initial Visit _x__ Follow-up Visit ___ On-call Visit ___ General Patient Visit ___ Spiritual Assessment ___ Family Conference ___ Bereavement ___ Rapid Response ___ Code Blue ___ Other (describe below) Pastoral Care Referral From _x__ Patient ___ Family ___ Nurse ___ Physician ___ Asphalt Layer ___ Media Supervisor ___ Other (describe below) Sacrament/Intervention _x__ Active listening ___ Anointing ___ Sikhism ___ Bereavement ___ Communion _x__ Shweta exploration ___ _x__ Life review _x__ Prayer ___ Reconciliation ___ Sacrament of Sick _x__ Supportive presence ___ Wedding ___ Other (describe below) Pastoral Comments
[2018-11-10] MEDS: Atorvastatin Calcium 80 MG Tablet PO (21:28)
[2018-11-10] MEDS: Donepezil HCl 5 MG Tablet PO (21:28)
[2018-11-10] MEDS: MELATONIN 10 MG TABLET PO (21:28)
[2018-11-11] MEDS: Menthol/Lanolin/Calamine/Znox 113 GM Tube 1 APPLIC TOPICAL ×2 (05:29→21:44)
[2018-11-11] MEDS: Nystatin Powder 15gm Bottle 1 APPLIC TOPICAL ×2 (05:29→21:45)
[2018-11-11] MEDS: APIXABAN 5 MG TABLET PO ×2 (05:34→17:09)
[2018-11-11] MEDS: Famotidine 20 MG Tablet PO ×2 (05:34→17:08)
[2018-11-11 05:35] VITALS: BP 149/68; PULSE 78
[2018-11-11] MEDS: Metoprolol(XL)Succ 25 MG Tablet PO (05:35)
[2018-11-11] MEDS: Acetaminophen 500 MG Tablet 1000 MG PO ×3 (05:36→21:44)
[2018-11-11 06:35] LABS: Bedside Glucose 158 mg/dL (70-110)
[2018-11-11 07:33] VITALS: O2SAT 95
[2018-11-11] MEDS: Multivitamins,Therapeutic Tablet 1 TABLET PO (08:38)
[2018-11-11] MEDS: Calcium Carb/Vitamin D 1 TABLET Tablet PO ×2 (08:38→17:08)
[2018-11-11] MEDS: Escitalopram Oxalate 10 MG Tablet PO (08:38)
--- NOTE | 2018-11-11 11:38 | CASEMGMT ---
Addendum entered by Michelle Maxwell 11/11/18 11:59: Reviewed Student social work MDS documentation. CAROLINA Paredes Original Note: Brief interview for mental status (BIMS) and mood (PHQ-9) completed on this day. BIMS score . PHQ-9 score 08/15. Judith Levy social work student
--- NOTE | 2018-11-11 13:25 | CASEMGMT ---
Insurance Clinical updates faxed. Will await continued stay determination. Auth# [id number] CAROLINA Paredes
[2018-11-11 15:14] VITALS: BP 142/69; PULSE 79; RESP 16; TEMP 36.9; O2SAT 96
[2018-11-11 20:23] VITALS: PULSE 70
[2018-11-11] MEDS: Atorvastatin Calcium 80 MG Tablet PO (21:43)
[2018-11-11] MEDS: Donepezil HCl 5 MG Tablet PO (21:43)
[2018-11-11] MEDS: MELATONIN 10 MG TABLET PO (21:43)
[2018-11-11] MEDS: oxyCODONE 5 MG Tablet PO (23:48)
[2018-11-12] MEDS: Famotidine 20 MG Tablet PO ×2 (05:06→16:57)
[2018-11-12] MEDS: APIXABAN 5 MG TABLET PO ×2 (05:07→16:57)
[2018-11-12] MEDS: Acetaminophen 500 MG Tablet 1000 MG PO ×3 (05:07→21:56)
[2018-11-12] MEDS: Menthol/Lanolin/Calamine/Znox 113 GM Tube 1 APPLIC TOPICAL ×2 (05:07→21:57)
[2018-11-12 05:08] VITALS: BP 155/69; PULSE 81
[2018-11-12] MEDS: Metoprolol(XL)Succ 25 MG Tablet PO (05:08)
[2018-11-12] MEDS: Nystatin Powder 15gm Bottle 1 APPLIC TOPICAL ×2 (05:09→21:57)
[2018-11-12 05:16] LABS: Absolute Neutrophil Count 4.4 X10^3/uL (2.0-7.7); Basophil# 0.09 X10^3/uL; Basophil% 1.2 % (0-1); Eosinophil# 0.21 X10^3/uL; Eosinophils% 2.7 % (0-5); Hematocrit 31.7 % (37-47); Hemoglobin 10.1 g/dl (12.0-15.0); Mean Corp Hgb Conc 31.9 g/gl (32-36); Mean Corpuscular Hgb 29.9 pg (27.0-32.0); Mean Corpuscular Volume 93.8 fL (81-99); Mean Platelet Vol. 9.6 fl (6.2-12.0); Monocyte# 0.59 X10^3/uL; Monocyte% 7.6 % (0-10); Neutrophil # 4.38 X10^3/uL (2.7-7.7); Platelet Count 484 K/mm3 (150-450); RBC Distribution Width CV 13.4 % (11.6-14.6); RBC Distribution Width SD 44.2 fl (35.1-43.9); Red Blood Count 3.38 M/mm3 (4.2-5.4); White Blood Count 7.8 K/mm3 (4.4-11.0)
[2018-11-12 05:19] LABS: POSITIVE COUNT NO; POSITIVE DIFFERENTIAL NO; POSITIVE MORPHOLOGY NO
[2018-11-12 05:29] LABS: Anion Gap 4 (5-15); BUN 14 mg/dL (7-18); Chloride 109 mmol/L (98-107); Creatinine, Serum 0.48 mg/dL (0.55-1.02); EST Glomerular Filtration Rate 135 mL/min (>60); Est Glom Filt Rate - Afr Amer 164 mL/min (>60); Estimated Creatinine Clearance 50.91 ml/min; Glucose 151 mg/dL (74-106); Potassium 3.6 mmol/L (3.5-5.1); Sodium Level 143 mmol/L (136-145)
[2018-11-12 06:30] LABS: Bedside Glucose 163 mg/dL (70-110)
[2018-11-12] MEDS: Multivitamins,Therapeutic Tablet 1 TABLET PO (08:26)
[2018-11-12] MEDS: Escitalopram Oxalate 10 MG Tablet PO (08:26)
[2018-11-12] MEDS: Calcium Carb/Vitamin D 1 TABLET Tablet PO ×2 (08:26→16:58)
[2018-11-12] MEDS: Tuberculin,Purif.prot.deriv. 50 TU/ML Vial 5 ML ID (10:28)
[2018-11-12 10:30] VITALS: PULSE 72; O2SAT 96
--- NOTE | 2018-11-12 11:23 | CASEMGMT ---
Insurance Continued stay approved with next update due 11/18/18. LCD likely to be issued at next review. Auth # [id number] CAROLINA Paredes
--- NOTE | 2018-11-12 15:07 | CASEMGMT ---
Plan of care meeting held today with pt, dgt and son in law present. Pt is receiving PT/OT and progressing with therapy. No d/c date set at this time. Pt plans to discharge to her home alone at time of d/c. PT and family notified that insurance approved more time with an update due on 11/18. Insurance also indicated NOMNOC will be issued upon next review. PT and family understanding of this. Upon d/c therapy is recommending home health PT/OT, WW, extended tub bench, grab bars in tub, long handled sponge and sock aid. PT would like information on medical alert as well. SW will continue to follow for d/c planning and support. Inez FIGUEROA
[2018-11-12 16:00] VITALS: BP 104/67; PULSE 68; RESP 18; TEMP 36.7; O2SAT 96
[2018-11-12] MEDS: Atorvastatin Calcium 80 MG Tablet PO (21:56)
[2018-11-12] MEDS: Donepezil HCl 5 MG Tablet PO (21:57)
[2018-11-12] MEDS: MELATONIN 10 MG TABLET PO (21:57)
[2018-11-13 06:20] VITALS: BP 158/59; PULSE 72
[2018-11-13] MEDS: Metoprolol(XL)Succ 25 MG Tablet PO (06:20)
[2018-11-13] MEDS: Acetaminophen 500 MG Tablet 1000 MG PO ×3 (06:20→21:38)
[2018-11-13] MEDS: Famotidine 20 MG Tablet PO ×2 (06:20→18:03)
[2018-11-13] MEDS: APIXABAN 5 MG TABLET PO ×2 (06:21→18:04)
[2018-11-13] MEDS: Menthol/Lanolin/Calamine/Znox 113 GM Tube 1 APPLIC TOPICAL ×2 (06:22→21:37)
[2018-11-13] MEDS: Nystatin Powder 15gm Bottle 1 APPLIC TOPICAL ×2 (06:22→21:38)
[2018-11-13 06:51] LABS: Bedside Glucose 146 mg/dL (70-110)
[2018-11-13] MEDS: Multivitamins,Therapeutic Tablet 1 TABLET PO (08:08)
[2018-11-13] MEDS: Calcium Carb/Vitamin D 1 TABLET Tablet PO ×2 (08:08→18:03)
[2018-11-13] MEDS: Escitalopram Oxalate 10 MG Tablet PO (08:08)
[2018-11-13 15:22] VITALS: BP 137/63; PULSE 67; RESP 16; TEMP 36.6; O2SAT 97
[2018-11-13] MEDS: Donepezil HCl 5 MG Tablet PO (21:37)
[2018-11-13] MEDS: Atorvastatin Calcium 80 MG Tablet PO (21:38)
[2018-11-13] MEDS: MELATONIN 10 MG TABLET PO (21:38)
[2018-11-14] MEDS: Menthol/Lanolin/Calamine/Znox 113 GM Tube 1 APPLIC TOPICAL ×2 (05:35→21:30)
[2018-11-14] MEDS: APIXABAN 5 MG TABLET PO ×2 (05:36→16:49)
[2018-11-14] MEDS: Nystatin Powder 15gm Bottle 1 APPLIC TOPICAL ×2 (05:38→21:30)
[2018-11-14 05:39] VITALS: BP 151/69; PULSE 56
[2018-11-14] MEDS: Acetaminophen 500 MG Tablet 1000 MG PO ×3 (05:39→21:30)
[2018-11-14] MEDS: Metoprolol(XL)Succ 25 MG Tablet PO (05:39)
[2018-11-14] MEDS: Famotidine 20 MG Tablet PO ×2 (05:39→16:48)
[2018-11-14 06:40] LABS: Bedside Glucose 174 mg/dL (70-110)
[2018-11-14] MEDS: Escitalopram Oxalate 10 MG Tablet PO (09:09)
[2018-11-14] MEDS: Calcium Carb/Vitamin D 1 TABLET Tablet PO ×2 (09:09→16:48)
[2018-11-14] MEDS: Multivitamins,Therapeutic Tablet 1 TABLET PO (09:09)
[2018-11-14 16:00] VITALS: BP 142/85; PULSE 76; RESP 14; TEMP 36.7; O2SAT 96
[2018-11-14] MEDS: Atorvastatin Calcium 80 MG Tablet PO (21:30)
[2018-11-14] MEDS: MELATONIN 10 MG TABLET PO (21:30)
[2018-11-14] MEDS: Donepezil HCl 5 MG Tablet PO (21:30)
[2018-11-14 21:33] VITALS: PULSE 73; O2SAT 98
[2018-11-15 06:47] VITALS: BP 150/79; PULSE 64
[2018-11-15] MEDS: Metoprolol(XL)Succ 25 MG Tablet PO (06:47)
[2018-11-15] MEDS: Famotidine 20 MG Tablet PO ×2 (06:47→16:43)
[2018-11-15] MEDS: Menthol/Lanolin/Calamine/Znox 113 GM Tube 1 APPLIC TOPICAL ×2 (06:47→19:48)
[2018-11-15] MEDS: Acetaminophen 500 MG Tablet 1000 MG PO ×3 (06:47→21:46)
[2018-11-15] MEDS: APIXABAN 5 MG TABLET PO ×2 (06:47→16:43)
[2018-11-15] MEDS: Nystatin Powder 15gm Bottle 1 APPLIC TOPICAL ×2 (06:47→19:47)
[2018-11-15 06:51] LABS: Bedside Glucose 155 mg/dL (70-110)
[2018-11-15] MEDS: Calcium Carb/Vitamin D 1 TABLET Tablet PO ×2 (08:05→16:44)
[2018-11-15] MEDS: Escitalopram Oxalate 10 MG Tablet PO (08:05)
[2018-11-15] MEDS: Multivitamins,Therapeutic Tablet 1 TABLET PO (08:05)
[2018-11-15 15:21] VITALS: BP 112/70; PULSE 78; RESP 18; TEMP 36.7; O2SAT 96
[2018-11-15] MEDS: Atorvastatin Calcium 80 MG Tablet PO (19:46)
[2018-11-15] MEDS: Donepezil HCl 5 MG Tablet PO (19:46)
[2018-11-15] MEDS: MELATONIN 10 MG TABLET PO (19:47)
[2018-11-16] MEDS: Loratadine 10 MG Tablet PO (06:09)
[2018-11-16 06:11] VITALS: BP 146/83; PULSE 73
[2018-11-16] MEDS: Nystatin Powder 15gm Bottle 1 APPLIC TOPICAL ×2 (06:11→21:19)
[2018-11-16] MEDS: Metoprolol(XL)Succ 25 MG Tablet PO (06:11)
[2018-11-16] MEDS: Famotidine 20 MG Tablet PO ×2 (06:11→16:23)
[2018-11-16] MEDS: Menthol/Lanolin/Calamine/Znox 113 GM Tube 1 APPLIC TOPICAL ×2 (06:12→20:37)
[2018-11-16] MEDS: APIXABAN 5 MG TABLET PO ×2 (06:13→16:23)
[2018-11-16] MEDS: Acetaminophen 500 MG Tablet 1000 MG PO ×3 (06:13→21:19)
[2018-11-16 06:36] LABS: Bedside Glucose 153 mg/dL (70-110)
--- NOTE | 2018-11-16 08:12 | MDS.RN ---
Information for the mds was obtained from review of the clinical record, interview of resident, staff, and direct observation of resident's care.
[2018-11-16] MEDS: Calcium Carb/Vitamin D 1 TABLET Tablet PO ×2 (08:41→16:22)
[2018-11-16] MEDS: Escitalopram Oxalate 10 MG Tablet PO (08:42)
[2018-11-16] MEDS: Multivitamins,Therapeutic Tablet 1 TABLET PO (08:42)
--- NOTE | 2018-11-16 14:20 | CASEMGMT ---
Social Work SW met with pt and daughter. Pt stating she would like to discharge on Thursday11/21/18. Plans to discharge to daughters home and would like home health services OT/PT. Pt has shower chair and grab bars in bathroom. Pt will need a wheeled walker. SW to follow up for d/c planning. Plan d/c home with dgt 11/21/18 with home health PT/OT CAROLINA Paredes
[2018-11-16 15:59] VITALS: BP 130/74; PULSE 67; RESP 18; TEMP 37; O2SAT 97
[2018-11-16 20:40] VITALS: PULSE 65; O2SAT 95
[2018-11-16] MEDS: Donepezil HCl 5 MG Tablet PO (21:20)
[2018-11-16] MEDS: MELATONIN 10 MG TABLET PO (21:20)
[2018-11-16] MEDS: Atorvastatin Calcium 80 MG Tablet PO (21:20)
[2018-11-17] MEDS: Menthol/Lanolin/Calamine/Znox 113 GM Tube 1 APPLIC TOPICAL ×2 (05:13→21:09)
[2018-11-17] MEDS: Loratadine 10 MG Tablet PO (05:14)
[2018-11-17] MEDS: APIXABAN 5 MG TABLET PO ×2 (05:15→17:05)
[2018-11-17 05:16] VITALS: BP 156/76; PULSE 74
[2018-11-17] MEDS: Nystatin Powder 15gm Bottle 1 APPLIC TOPICAL ×2 (05:16→21:09)
[2018-11-17] MEDS: Metoprolol(XL)Succ 25 MG Tablet PO (05:16)
[2018-11-17] MEDS: Famotidine 20 MG Tablet PO ×2 (05:16→17:04)
[2018-11-17] MEDS: Acetaminophen 500 MG Tablet 1000 MG PO ×3 (05:17→21:08)
[2018-11-17 06:21] LABS: Bedside Glucose 136 mg/dL (70-110)
[2018-11-17] MEDS: Multivitamins,Therapeutic Tablet 1 TABLET PO (10:23)
[2018-11-17] MEDS: Escitalopram Oxalate 10 MG Tablet PO (10:23)
[2018-11-17] MEDS: Calcium Carb/Vitamin D 1 TABLET Tablet PO ×2 (10:23→17:05)
--- NOTE | 2018-11-17 14:37 | CASEMGMT ---
Social Work Referral made to Mary at [facility] for home PT/OT. They are able to accept pt and will cotact pt with a start of care. CAROLINA Paredes
[2018-11-17 16:00] VITALS: BP 166/76; PULSE 62; RESP 16; TEMP 36.5; O2SAT 97
--- NOTE | 2018-11-17 20:55 | PCM.DC ---
You will use the following diet at home:: No restrictions, Regular Your food should be the consistency of: Regular Your liquids should be the consistency of: Regular/Thin Discharge Activity: Return to Normal Activity, May Shower, Use Walker Weight Bearing Status: Weight bearing as tolerated Call your doctor if you observe: Fever of 101 or Higher, Inability to urinate, Inability to have a bowel movement, Shortness of breath, Chest pain, Uncontrolled pain Allergies/Adverse Reactions: Allergies Penicillins Allergy (Verified 12/14/14 14:40) Unknown Medications to take at Discharge Donepezil HCl [Aricept] 5 mg PO QHS 04/01/17 Escitalopram Oxalate [Lexapro] 10 mg PO DAILY 04/01/17 Multivitamins,Therapeutic [Multivitamin] 1 tablet PO DAILY 04/01/17 Melatonin 10 mg PO QHS 10/28/18 Apixaban [Eliquis] 10 mg PO BID 11/04/18 Calcium Carb/Vitamin D [Os-Kevin 500MG + D] 1 tablet PO BIDCM 11/04/18 Cholecalciferol (VIT D3) [Vitamin D3] 1,000 unit PO DAILY 11/04/18 Acetaminophen [Tylenol] 1,000 mg PO TID tablet 11/17/18 Apixaban [Eliquis] 5 mg PO BID #60 tablet 11/17/18 Atorvastatin Calcium [Lipitor] 80 mg PO QHS #30 tablet 11/17/18 Famotidine [Pepcid] 20 mg PO BID #60 tablet 11/17/18 Loratadine [Claritin] 10 mg PO DAILY tablet 11/17/18 Menthol/Lanolin/Calamine/Znox [Calmoseptine Ointment] 1 applic TOPICAL 0600,2200 tube 11/17/18 Metoprolol(XL)Succ [Toprol Xl (Beta Talita)] 25 mg PO DAILY #30 tablet 11/17/18 Mineral Oil/Petrolatum,White [Eucerin] 1 applic TOPICAL 0600,2200 jar 11/17/18 Nystatin Powder [Mycostatin Powder] 1 applic TOPICAL 0600,2200 bottle 11/17/18 The following prescriptions were given: Atorvastatin Calcium [Lipitor] 80 mg PO QHS #30 tablet Metoprolol(XL)Succ [Toprol Xl (Beta Talita)] 25 mg PO DAILY #30 tablet Apixaban [Eliquis] 5 mg PO BID #60 tablet Famotidine [Pepcid] 20 mg PO BID #60 tablet Primary Care Physician: Marty Steve Chi, MD [Primary Care Provider] - Please follow up with your Primary Care Physician in: 1 week. Test Results: Test results from this visit will be discussed in further detail at your follow-up appointment, if applicable. Please Follow Up With: Susu Liu MD When: [place] [facility] Please Follow Up With: Mary Null PA When: Will call me back on 11-09-18 Please Follow Up With: mortician supplies sales representative When: after discharge Please Follow Up With: [facility] Physical [facility] Occupational Therapy When: They will call to set up time to come to your home Proposed Discharge Date: 11/21/18
--- NOTE | 2018-11-17 20:57 | PCM.DC.SUM ---
Discharge Date and Diagnosis Date of Admission: 11/04/18 Date of Discharge: 11/21/18 - Secondary Discharge Diagnosis Chronic Problems Diabetes (Chronic) Anxiety and depression (Chronic) Former tobacco use (Chronic) HTN (hypertension) (Chronic) Hospital Course and Treatment Imaging Results: 11/04/18 18:29 Diet: Calorie Controlled Food consistency:: Regular Liquid Consistency:: Regular/Thin Is pt able to select menu?: Yes Diet Comments: may have 1 glass of wine every evening with dinner. How many daily calories?: 1800 calorie Labs (Last 48 Hours) 11/16/18 11/17/18 06:13 06:09 POC Glucose 153 H 136 H Operations: - - ORIF left hip Procedures: None Summary of Care Provided: The patient is a 68 year old Female with below past medical history hospitalized for left hip fracture status post ORIF per Dr. Pollock, complicated by stroke, admitted to TCU with debility, here for rehabilitation, strengthening, prior to discharge home. Discharge home with daughter, Home Health Services for PT/OT. - Physical Exam Vital Signs Temp Pulse Resp BP Pulse Ox 97.7 F L 62 16 166/76 H 97 11/17/18 16:00 11/17/18 16:00 11/17/18 16:00 11/17/18 16:00 11/17/18 16:00 Oxygen Flow Rate (L/min) 1 Oxygen Delivery Method Room Air Weight: 68.549 kg Body Mass Index (BMI) 24.1 Finger Stick Blood Glucose 166 Intake and Output for Last 24 Hours 11/15/18 11/16/18 11/17/18 23:59 23:59 23:59 Intake Total 600 / 600 880 / 880 740 / 740 Balance 600 / 600 880 / 880 740 / 740 POC Glucose 11/17/18 06:09 POC Glucose 136 H Discharge Diet: No Restrictions Discharge Activity: Return to Normal Activity, May Shower, Use Walker Weight Bearing Status: Weight bearing as tolerated Call your doctor if you observe: Fever of 101 or Higher, Inability to urinate, Inability to have a bowel movement, Shortness of breath, Chest pain, Uncontrolled pain Home Medications: Medications to take at Discharge Donepezil HCl [Aricept] 5 mg PO QHS 04/01/17 Escitalopram Oxalate [Lexapro] 10 mg PO DAILY 09/13/17 Multivitamins,Therapeutic [Multivitamin] 1 tablet PO DAILY 04/01/17 Melatonin 10 mg PO QHS 10/28/18 Apixaban [Eliquis] 10 mg PO BID 11/04/18 Calcium Carb/Vitamin D [Os-Kevin 500MG + D] 1 tablet PO BIDCM 11/04/18 Cholecalciferol (VIT D3) [Vitamin D3] 1,000 unit PO DAILY 11/04/18 Acetaminophen [Tylenol] 1,000 mg PO TID tablet 11/17/18 Apixaban [Eliquis] 5 mg PO BID #60 tablet 11/17/18 Atorvastatin Calcium [Lipitor] 80 mg PO QHS #30 tablet 11/17/18 Famotidine [Pepcid] 20 mg PO BID #60 tablet 11/17/18 Loratadine [Claritin] 10 mg PO DAILY tablet 11/17/18 Menthol/Lanolin/Calamine/Znox [Calmoseptine Ointment] 1 applic TOPICAL 0600,2200 tube 11/17/18 Metoprolol(XL)Succ [Toprol Xl (Beta Talita)] 25 mg PO DAILY #30 tablet 11/17/18 Mineral Oil/Petrolatum,White [Eucerin] 1 applic TOPICAL 0600,2200 jar 11/17/18 Nystatin Powder [Mycostatin Powder] 1 applic TOPICAL 0600,2200 bottle 11/17/18 Following Prescrptions Were Given to Patient: Atorvastatin Calcium [Lipitor] 80 mg PO QHS #30 tablet Metoprolol(XL)Succ [Toprol Xl (Beta Talita)] 25 mg PO DAILY #30 tablet Apixaban [Eliquis] 5 mg PO BID #60 tablet Famotidine [Pepcid] 20 mg PO BID #60 tablet Primary Care Physician: Marty Steve Chi, MD [Primary Care Provider] - Please follow up with your Primary Care Physician in: 1 week. Please Follow Up With: Susu Liu MD When: [place] [facility] Please Follow Up With: Mary Null PA When: Will call me back on 11-09-18 Please Follow Up With: emergency medicine nurse practitioner When: after discharge Please Follow Up With: [facility] Physical and Occupational Therapy When: They will call to set up time to come to your home Disposition: Home with Home Health Minutes spent on discharge:: 35 Patient Condition:: Stable Medical Necessity - Tobacco Use Smoking Status: Former smoker Meaningful Use Info Meaningful Use Diagnoses (Choose all that apply): None applicable
--- NOTE | 2018-11-17 21:00 | PCM.PN.HH ---
Home Health Note - Plan Overview of reason of hospitalization: The patient is a 68 year old Female with below past medical history hospitalized for left hip fracture status post ORIF per Dr. Pollock, complicated by stroke, admitted to TCU with debility, here for rehabilitation, strengthening, prior to discharge home. Discharge home with daughter, Home Health Services for PT/OT. Problems: Complete List of Medical Problems CVA (cerebral vascular accident) (Acute) Diabetes (Chronic) Deep vein thrombosis (DVT) of left lower extremity (Acute) Pulmonary embolism (Acute) Non-ST elevation [place] (NSTEMI) (Acute) Closed left hip fracture (Acute) Anxiety and depression (Chronic) Former tobacco use (Chronic) HTN (hypertension) (Chronic) - Requirements and Reasons Disciplines Needed/Ordered: Physical Therapy Reason for Disciplines: Disease Specific Monitoring/education, Medication Management/Knowledge Deficit, Gait Training, Stair Training, Fall Prevention, Home Safety/Equipment Instruction, Balance and/or Posture Training, Transfer Training Related To: Limited/Poor Endurance, Physical Impairments, Unsteady Gait/Balance, Fall Risk Patient is unable to leave the home: Without Aid of Supportive Devices (crutches, cane, wheelchair, walker), Without the assistance of another person - Additional Disciplines Additional Disciplines Needed/Ordered: Occupational Therapy
[2018-11-17] MEDS: Donepezil HCl 5 MG Tablet PO (21:09)
[2018-11-17] MEDS: MELATONIN 10 MG TABLET PO (21:09)
[2018-11-17] MEDS: Atorvastatin Calcium 80 MG Tablet PO (21:09)
[2018-11-18] MEDS: Menthol/Lanolin/Calamine/Znox 113 GM Tube 1 APPLIC TOPICAL ×2 (05:57→21:26)
[2018-11-18] MEDS: Nystatin Powder 15gm Bottle 1 APPLIC TOPICAL ×2 (05:57→21:26)
[2018-11-18 05:58] VITALS: BP 152/65; PULSE 70
[2018-11-18] MEDS: Acetaminophen 500 MG Tablet 1000 MG PO ×3 (05:58→21:24)
[2018-11-18] MEDS: Metoprolol(XL)Succ 25 MG Tablet PO (05:58)
[2018-11-18] MEDS: Loratadine 10 MG Tablet PO (05:58)
[2018-11-18] MEDS: Famotidine 20 MG Tablet PO ×2 (05:58→17:04)
[2018-11-18] MEDS: APIXABAN 5 MG TABLET PO ×2 (05:58→17:04)
[2018-11-18 07:16] LABS: Bedside Glucose 138 mg/dL (70-110)
[2018-11-18] MEDS: Escitalopram Oxalate 10 MG Tablet PO (08:38)
[2018-11-18] MEDS: Calcium Carb/Vitamin D 1 TABLET Tablet PO ×2 (08:38→17:04)
[2018-11-18] MEDS: Multivitamins,Therapeutic Tablet 1 TABLET PO (08:38)
--- NOTE | 2018-11-18 13:45 | CASEMGMT ---
Insurance: Clinical update faxed. URBANO spoke with Natalie at insurance who is inquiring of d/c plan. Stay approved through d/c of 11/21/18. [facility] faxed. Auth# [id number] CAROLINA Paredes
--- NOTE | 2018-11-18 15:30 | CASEMGMT ---
Social Work: Brief interview for mental status and PHQ-9 completed this day. BETH Kline
[2018-11-18] MEDS: oxyCODONE 5 MG Tablet PO ×2 (15:31→21:24)
[2018-11-18 16:00] VITALS: BP 138/90; PULSE 18; RESP 18; TEMP 37; O2SAT 97
[2018-11-18] MEDS: Donepezil HCl 5 MG Tablet PO (21:25)
[2018-11-18] MEDS: Atorvastatin Calcium 80 MG Tablet PO (21:25)
[2018-11-18] MEDS: MELATONIN 10 MG TABLET PO (21:25)
[2018-11-19] MEDS: Loratadine 10 MG Tablet PO (04:26)
[2018-11-19 04:27] VITALS: BP 153/94; PULSE 69
[2018-11-19] MEDS: Famotidine 20 MG Tablet PO ×2 (04:27→16:36)
[2018-11-19] MEDS: Metoprolol(XL)Succ 25 MG Tablet PO (04:27)
[2018-11-19] MEDS: APIXABAN 5 MG TABLET PO ×2 (04:27→16:37)
[2018-11-19] MEDS: Nystatin Powder 15gm Bottle 1 APPLIC TOPICAL ×2 (04:28→21:51)
[2018-11-19] MEDS: Menthol/Lanolin/Calamine/Znox 113 GM Tube 1 APPLIC TOPICAL ×2 (04:30→21:50)
[2018-11-19 06:05] LABS: Absolute Lymphocyte Count 2.01 X10^3/ul (0.83-4.51); Absolute Neutrophil Count 3.3 X10^3/uL (2.0-7.7); Basophil# 0.07 X10^3/uL; Basophil% 1.2 % (0-1); Eosinophil# 0.23 X10^3/uL; Eosinophils% 3.8 % (0-5); Hematocrit 31.3 % (37-47); Lymphocyte # 2.01 X10^3/ul (4.0); Lymphocyte % 33.6 % (19-41); Mean Corp Hgb Conc 31.9 g/gl (32-36); Mean Corpuscular Hgb 29.9 pg (27.0-32.0); Mean Corpuscular Volume 93.4 fL (81-99); Mean Platelet Vol. 9.8 fl (6.2-12.0); Monocyte# 0.41 X10^3/uL; Monocyte% 6.8 % (0-10); Neutrophil # 3.26 X10^3/uL (2.7-7.7); Neutrophil % 54.4 % (47-70); Platelet Count 420 K/mm3 (150-450); RBC Distribution Width CV 13.8 % (11.6-14.6); RBC Distribution Width SD 47.1 fl (35.1-43.9); Red Blood Count 3.35 M/mm3 (4.2-5.4)
[2018-11-19 06:12] LABS: POSITIVE COUNT NO; POSITIVE DIFFERENTIAL NO; POSITIVE MORPHOLOGY NO
[2018-11-19 06:27] LABS: Anion Gap 7 (5-15); BUN 12 mg/dL (7-18); BUN/Creat Ratio 26.6 RATIO (10-20); Chloride 108 mmol/L (98-107); Creatinine, Serum 0.45 mg/dL (0.55-1.02); EST Glomerular Filtration Rate 146 mL/min (>60); Est Glom Filt Rate - Afr Amer 177 mL/min (>60); Estimated Creatinine Clearance 50.91 ml/min; Glucose 136 mg/dL (74-106); Potassium 3.4 mmol/L (3.5-5.1); Sodium Level 142 mmol/L (136-145)
[2018-11-19 06:46] LABS: Bedside Glucose 136 mg/dL (70-110)
[2018-11-19] MEDS: Acetaminophen 500 MG Tablet 1000 MG PO ×3 (06:47→21:49)
[2018-11-19] MEDS: Calcium Carb/Vitamin D 1 TABLET Tablet PO ×2 (08:54→16:36)
[2018-11-19] MEDS: Multivitamins,Therapeutic Tablet 1 TABLET PO (08:54)
[2018-11-19] MEDS: Escitalopram Oxalate 10 MG Tablet PO (08:54)
--- NOTE | 2018-11-19 10:50 | CASEMGMT ---
Social Work Pt to d/c Thursday11/21/18 to dgt home who will assist and transport as needed. Referral made to [facility] for PT/OT and they can accept. Referral made to [facility] for Wheeled walker. They will deliver walker to pt room prior to d/c. No futher d/c needs at this time. Plan: Home with daughter 11/21/18. [facility] PT/OT and wheeled walker Inez FIGUEROA
[2018-11-19 16:00] VITALS: BP 130/78; PULSE 62; RESP 16; TEMP 37.1; O2SAT 96
[2018-11-19] MEDS: Atorvastatin Calcium 80 MG Tablet PO (21:49)
[2018-11-19] MEDS: Donepezil HCl 5 MG Tablet PO (21:49)
[2018-11-19] MEDS: MELATONIN 10 MG TABLET PO (21:49)
[2018-11-20 05:56] VITALS: BP 166/64; PULSE 66
[2018-11-20] MEDS: Loratadine 10 MG Tablet PO (05:56)
[2018-11-20] MEDS: Menthol/Lanolin/Calamine/Znox 113 GM Tube 1 APPLIC TOPICAL ×2 (05:56→21:40)
[2018-11-20] MEDS: Metoprolol(XL)Succ 25 MG Tablet PO (05:56)
[2018-11-20] MEDS: APIXABAN 5 MG TABLET PO ×2 (05:56→16:53)
[2018-11-20] MEDS: Nystatin Powder 15gm Bottle 1 APPLIC TOPICAL ×2 (05:56→21:40)
[2018-11-20] MEDS: Acetaminophen 500 MG Tablet 1000 MG PO ×3 (05:56→21:40)
[2018-11-20] MEDS: Famotidine 20 MG Tablet PO ×2 (05:56→16:53)
[2018-11-20] MEDS: Escitalopram Oxalate 10 MG Tablet PO (09:00)
[2018-11-20] MEDS: Multivitamins,Therapeutic Tablet 1 TABLET PO (09:00)
[2018-11-20] MEDS: Calcium Carb/Vitamin D 1 TABLET Tablet PO ×2 (09:00→16:53)
[2018-11-20 09:41] LABS: Bedside Glucose 145 mg/dL (70-110)
[2018-11-20 15:46] VITALS: BP 129/51; PULSE 71; RESP 16; TEMP 36.9; O2SAT 97
[2018-11-20] MEDS: Donepezil HCl 5 MG Tablet PO (21:40)
[2018-11-20] MEDS: Atorvastatin Calcium 80 MG Tablet PO (21:40)
[2018-11-20] MEDS: MELATONIN 10 MG TABLET PO (21:40)
[2018-11-21 06:35] LABS: Bedside Glucose 133 mg/dL (70-110)
[2018-11-21 06:40] VITALS: BP 150/60; PULSE 60
[2018-11-21] MEDS: Metoprolol(XL)Succ 25 MG Tablet PO (06:40)
[2018-11-21] MEDS: Menthol/Lanolin/Calamine/Znox 113 GM Tube 1 APPLIC TOPICAL (06:40)
[2018-11-21] MEDS: Famotidine 20 MG Tablet PO (06:40)
[2018-11-21] MEDS: Acetaminophen 500 MG Tablet 1000 MG PO (06:40)
[2018-11-21] MEDS: APIXABAN 5 MG TABLET PO (06:40)
[2018-11-21] MEDS: Loratadine 10 MG Tablet PO (06:40)
[2018-11-21] MEDS: Nystatin Powder 15gm Bottle 1 APPLIC TOPICAL (06:40)
[2018-11-21] MEDS: Escitalopram Oxalate 10 MG Tablet PO (08:06)
[2018-11-21] MEDS: Multivitamins,Therapeutic Tablet 1 TABLET PO (08:06)
[2018-11-21] MEDS: Calcium Carb/Vitamin D 1 TABLET Tablet PO (08:06)
[2018-11-21 10:15] VITALS: BP 141/66; PULSE 70; RESP 18; TEMP 36.9; O2SAT 96
--- NOTE | 2018-11-23 09:45 | CASEMGMT ---
Insurance Notified insurance of d/c on 11/21/18 home with [facility] PT/OT Auth# [id number] CAROLINA Paredes
--- NOTE | 2018-12-02 10:30 | MDS.RN ---
Information for the mds was obtained from review of the clinical record, interview of resident, staff, and direct observation of resident's care.
== END 2018-11-21 11:00 | disposition home health service (06) | DRG 559 ==
PROVIDERS: Admitting Provider Internal Medicine; Family Provider Family Medicine Geriatric Medicine; PCP Family Medicine Geriatric Medicine; Visit Provider Internal Medicine
DX: M80.052D Age-related osteoporosis with current pathological fracture, left femur, subsequent encounter for fracture with routine healing (principal); I26.99 Other pulmonary embolism without acute cor pulmonale; I82.402 Acute embolism and thrombosis of unspecified deep veins of left lower extremity; Z87.891 Personal history of nicotine dependence; I10 Essential (primary) hypertension; F41.9 Anxiety disorder, unspecified; F32.9 Major depressive disorder, single episode, unspecified; E11.9 Type 2 diabetes mellitus without complications; I48.91 Unspecified atrial fibrillation; I25.2 Old myocardial infarction
CPT/HCPCS: 36415; 80048; 82962; 85025; 97110; 97116; 97162; 97166; 97530; 97535; 97802

== ENCOUNTER 2018-12-28 14:21 | Outpatient (RCR) | payer MEDICARE, SELFPAY ==
[2018-12-06 15:25] VITALS: BMI 23.1
--- NOTE | 2018-12-28 15:43 | HP.PTEVAL_ITS ---
Patient's Visit Information TONYA AMOS is a 68 year old F referred to Physical Therapy by Marty Steve MD with a diagnosis of ORIF LEFT HIP,TROCHANTERIC BURSITIS. Date of Evaluation: 12/28/18 Physical Therapist: Evangelista Smith, PT, Cert MDT, OCS - Visit Plan Frequency: 2x /Week Duration: 4 Weeks Plan: S/P ORIF. INTERVENTIONS TO INCLUDE PROGRESSIVE GAIT,BALANCE PROGRAM,PRE'S HIP/QUADS/HAMS. NUSTEP,FUNCTIONAL STRENGTHENING - Subjective Findings: This 68 y/o female presents to physical therapy with s/p ORIF left hip. Patient fell at home October 28 landed on left hip caused femur neck nondisplaced fracture thus underwent s/p ORIF left hip [facility] by Dr Pollock. Patient had post complication small TIA and MN moved to ICU eventually stable PCU then d/c to TCU 11/04 THEN D/C to home . [facility] and received home PT 4 weeks .Patient intilally use walker then graduated to cane.Patient return home [facility] Kevin 2steps with rail. Most recenty patient has dveloped pain lateral hip seen Dr Pollock thought to have bursitis and start outpatient PT for strengthening.Denies parathesia/tingling. Patient condition affects ability to perform ADL'S and housework tasks. Patient symptoms affect sleeping.Patient has Tubshower setup with seat and grab bars.Patient condition affects QOL and function . SOCIAL: . VOCATION: retired - Pain Left Hip Pain Intensity (Out of 10): 3 Pain Intensity Range: 10 Comment: walking - Objective POSTURE: mild foward posture. PALAPTION: tender greater tronhanter. NEURO: intact. GAIT: ambulates with straight cane with antalgic gait. AROM: hip flexion 0-115 degrees ,hip abd 35 degrees. MMT: quads/hams 4-/5,hip flexion ,hip abd 3/5,ankle. BALANCE: QC with fair+ balance. MMT: - Goals Goal 1:: Independant with HEP Goal Time Frame: 4-6 Weeks Goal 2:: Patient to decreas by lateral hip by 60% or greater to improve function. Goal Time Frame: 4-6 Weeks Goal 3:: Patient to ambulate without cane with improved gait pattern stance time swing phase during gait. Goal Time Frame: 4-6 Weeks Goal 4:: Patient increase strength of left hip 4-/5 to improve function with gait. Goal Time Frame: 4-6 Weeks Goal 5:: Patient to improve LFES score by 5-10 points to improve function Goal Time Frame: 4-6 Weeks Goal 6:: Balance good - Goal Time Frame: 4-6 Weeks - Rehabilitation Potential Physical Therapy Diagnosis: This patient underwent s/p Left ORIF October 28,with rj n lateral hip,weakness impairs gait and function with ADLS' at home thus benifit from skilled PT Rehabilitation Potential: Good - Anticipated Interventions Patient/Client Instruction: Educate patient on: Condition, Plan of Care For the Purpose of:: To decrease pain, To increase ROM, To improve muscle performance and motor function, To improve ability to perform ADL's, To increase tolerance to activity/condition/position, To improve ability of physical actions for home/community/work/leisure, To improve gait and locomotor functions, To increase flexibility/ROM, To improve endurance, To improve safety with gait, To improve ability to perform tasks related to life management Therapeutic Exercise to Include: Strength training, Endurance training, Balance training, Gait and locomotor training, Active ROM Comment: HIP/KNEE For the Purpose of:: To decrease pain, To increase ROM, To improve muscle performance and motor function, To improve ability to perform ADL's, To increase tolerance to activity/condition/position, To improve ability of physical actions for home/community/work/leisure, To improve gait and locomotor functions, To improve health of tissue, To decrease soft tissue restriction, To increase flexibility/ROM, To improve endurance, To improve balance TENS: Yes IF ES: Yes Cryotherapy (ice pack, ice massage): Yes Thermo therapy (hot pack): Yes For the Purpose of:: To decrease pain, To increase ROM, To improve health of tissue, To decrease soft tissue restriction Thank you for the opportunity to evaluate your patient. For Medicare and Medicare HMO plans, please review the plan of care and approve it. It will need to be FAXED BACK to us at [phone] for Medicare purposes. For Medicare only, by signing this I certify the plan of care. Please let me know if there are questions or concerns regarding this plan of care. Physician Signature: Date:
== END 2018-12-28 19:00 | disposition home or self-care (01) ==
LOC: PT 14:21
PROVIDERS: Family Provider Family Medicine Geriatric Medicine; PCP Family Medicine Geriatric Medicine; Referring Provider Family Medicine Geriatric Medicine; Visit Provider Family Medicine Geriatric Medicine
DX: S72.009D Fracture of unspecified part of neck of unspecified femur, subsequent encounter for closed fracture with routine healing (principal); M70.62 Trochanteric bursitis, left hip
CPT/HCPCS: 97110; 97162

== ENCOUNTER → 2019-02-02 | Outpatient (CLI) | payer MEDICARE, SELFPAY ==
[2018-12-06 15:25] VITALS: BMI 23.1
--- NOTE | 2019-02-02 09:22 | US_ITS ---
STUDY: Focused ultrasound of the neck REASON FOR EXAM: Female, 68 years old. Lymphadenopathy TECHNIQUE: Ultrasound evaluation of the neck was performed with real-time and static gold-scale imaging. COMPARISON: None. FINDINGS: 3 lymph nodes are noted in the right neck measuring 2.7 x 0.6 x 0.3 and 0.9 x 0.4 x 0.3 and 1.9 x 0.9 x 0.4 cm US/Head/Neck Soft Tissue IMPRESSION: Multiple nonspecific lymph nodes right anterior neck. Electronically Signed: Efrain Hewitt MD at 23:18 EDT , Service support ,
== END | disposition home or self-care (01) ==
PROVIDERS: Family Provider Family Medicine Geriatric Medicine; PCP Family Medicine Geriatric Medicine; Referring Provider Otolaryngology; Visit Provider Otolaryngology
DX: R59.0 Localized enlarged lymph nodes (principal)
CPT/HCPCS: 76536

== ENCOUNTER → 2019-03-03 | Outpatient (CLI) | payer MEDICARE, SELFPAY ==
[2018-12-06 15:25] VITALS: BMI 23.1
[2019-03-03 12:49] LABS: Absolute Lymphocyte Count 2.51 X10^3/uL (0.83-4.51); Basophil# 0.05 X10^3/uL; Basophil% 0.6 % (0-1); Eosinophil# 0.18 X10^3/uL; Eosinophils% 2.2 % (0-5); Hematocrit 39.9 % (37-47); Hemoglobin 13.5 g/dL (12.0-15.0); Lymphocyte # 2.51 X10^3/ul (4.0); Lymphocyte % 30.8 % (19-41); Mean Corp Hgb Conc 33.8 g/dL (32-36); Mean Corpuscular Hgb 31.2 pg (27.0-32.0); Mean Corpuscular Volume 92.1 fL (81-99); Monocyte# 0.43 X10^3/uL; Monocyte% 5.3 % (0-10); NRBC Flagged by Analyzer 0 % (0-5); Neutrophil # 4.96 X10^3/uL (2.7-7.7); Neutrophil % 60.7 % (47-70); Platelet Count 366 K/mm3 (150-450); RBC Distribution Width CV 13.8 % (11.6-14.6); RBC Distribution Width SD 47.3 fl (35.1-43.9); Red Blood Count 4.33 M/mm3 (4.2-5.4); White Blood Count 8.2 K/mm3 (4.4-11.0)
[2019-03-03 13:12] LABS: Vitamin D,25 Hydroxy 34.9 ng/mL (29.95-100.01)
[2019-03-03 13:16] LABS: ALB/GLOB Ratio 0.8 RATIO (0.9-2.4); AST(SGOT) 13 U/L (15-37); Alanine Aminotransfer ALT/SGPT 15 U/L (13-56); Albumin, Serum 3.6 g/dL (3.2-5.0); Alkaline Phosphatase 108 U/L (45-117); Anion Gap 9 (5-15); BUN 14 mg/dL (7-18); BUN/Creat Ratio 15.8 RATIO (10-20); Calcium,Total 9.3 mg/dL (8.5-10.1); Chloride 105 mmol/L (98-107); Creatinine, Serum 0.89 mg/dL (0.55-1.02); EST Glomerular Filtration Rate 67 mL/min (>60); Est Glom Filt Rate - Afr Amer 81 mL/min (>60); Globulin 4.3 g/dL (2.2-4.2); Glucose 163 mg/dL (74-106); Potassium 3.2 mmol/L (3.5-5.1); Protein, Total 7.9 g/dL (6.4-8.2); Sodium Level 141 mmol/L (136-145); Thyroid Stim Hormone (TSH) 4.43 uIU/mL (0.358-3.74)
== END | disposition home or self-care (01) ==
LOC: POLAB3 11:07
PROVIDERS: Family Provider Family Medicine Geriatric Medicine; PCP Family Medicine Geriatric Medicine; Visit Provider Family Medicine Geriatric Medicine
DX: E55.9 Vitamin D deficiency, unspecified (principal); R53.83 Other fatigue
CPT/HCPCS: 36415; 80053; 82306; 84443; 85025

== ENCOUNTER → 2019-03-07 | Outpatient (CLI) | payer MEDICARE, SELFPAY ==
[2018-12-06 15:25] VITALS: BMI 23.1
--- NOTE | 2019-03-07 11:00 | UL_PTH ---
PATIENT: TONYA AMOS LOC: [facility] U#:[id number] AGE/SX: 68/F ROOM: RE03/07/[address]: Dr. John Montemayor MD : 1950 BED: DIS: 03/07/2019 SPEC #: [id number] RECD: 03/07/19 13:39 STATUS: ATUL REQ #: [id number] SHA: 03/07/19 11:[address]: John Montemayor DEPT: SURGICAL PATHOLOGY RECD BY: Joann Davenport ENTERED: 03/07/19 14:13 SP TYPE: ULCER OTHR DR: Dr. Marty Steve MD Tissues: ULCER Procedures: Surgery Specimen Level IV HEADER OPERATION: Not noted PRE-OP DIAGNOSIS: Ulceration of right upper lip, rule out malignancy TISSUE SUBMITTED: Upper right lip area MICROSCOPIC DIAGNOSIS Upper right lip area lesion, punch biopsy: Basal cell carcinoma with ulceration and associated inflammation, present at the peripheral resection margin of the specimen (0.3 cm in greatest dimension). EFRAIN:delmi 03/08/19 MICROSCOPIC DESCRIPTION Slides are reviewed. GROSS DESCRIPTION Received is one container labeled with the patient's name and not further designated. The specimen consists of a punch biopsy of leonardo-white skin measuring 0.3 x 0.3 x 0.1 cm. The specimen is totally submitted in one cassette. / EFRAIN:delmi 03/07/19 TC:0 CPT: 62154
== END | disposition home or self-care (01) ==
LOC: LABSPEC 13:53
PROVIDERS: Family Provider Family Medicine Geriatric Medicine; PCP Family Medicine Geriatric Medicine; Referring Provider Otolaryngology; Visit Provider Otolaryngology
DX: C44.01 Basal cell carcinoma of skin of lip (principal)
CPT/HCPCS: 88304; 88305

== ENCOUNTER → 2019-03-22 15:05 | Outpatient (CLI) | payer MEDICARE, SELFPAY ==
[2018-12-06 15:25] VITALS: BMI 23.1
[2019-03-22 17:31] LABS: Anion Gap 6 (5-15); BUN 17 mg/dL (7-18); BUN/Creat Ratio 24.5 RATIO (10-20); Calcium,Total 9.4 mg/dL (8.5-10.1); Chloride 105 mmol/L (98-107); Creatinine, Serum 0.69 mg/dL (0.55-1.02); EST Glomerular Filtration Rate 89 mL/min (>60); Est Glom Filt Rate - Afr Amer 108 mL/min (>60); Glucose 138 mg/dL (74-106); Potassium 3.5 mmol/L (3.5-5.1); Sodium Level 139 mmol/L (136-145)
== END ==
PROVIDERS: Family Provider Family Medicine Geriatric Medicine; PCP Family Medicine Geriatric Medicine; Visit Provider Family Medicine Geriatric Medicine
DX: E87.6 Hypokalemia (principal); E03.9 Hypothyroidism, unspecified
CPT/HCPCS: 36415; 80048; 84443

== ENCOUNTER 2019-03-25 07:35 | Day surgery (SDC) | payer MEDICARE, SELFPAY ==
[2018-12-06 15:25] VITALS: BMI 23.1
--- NOTE | 2019-03-25 | LES_PTH ---
PATIENT: TONYA AMOS LOC: [facility] U#:[id number] AGE/SX: 68/F ROOM: RE03/25/[address]: Dr. John Montemayor MD : 1950 BED: DIS: 03/25/2019 SPEC #: [id number] RECD: 03/25/19 11:54 STATUS: ATUL REQ #: [id number] SHA: 03/25/19 00:[address]: John Montemayor DEPT: SURGICAL PATHOLOGY RECD BY: Margy Morgan ENTERED: 03/25/19 12:38 SP TYPE: Lesion OTHR DR: Dr. Marty Steve MD Tissues: A - Skin of lip, NOS B - Lymph node, NOS Procedures: Frozen Section (charge) Surgery Specimen Level IV HEADER OPERATION: Excision lip, transverse wedge excision with primary closure PRE-OP DIAGNOSIS: Basal cell carcinoma of face, cervical lymphadenopathy TISSUE SUBMITTED: A - Basal cell carcinoma right upper lip, single - medial, double - superior, B - Right side deep cervical lymph node, fresh FROZEN SECTION DIAGNOSIS A. Skin lesion, right upper lip, biopsy: Basal cell carcinoma, completely excised. AM:delmi 03/25/19 Case has been reviewed in consultation with Dr. Olson who concurs with the above diagnosis. IDC:EFRAIN MICROSCOPIC DIAGNOSIS A. Skin lesion, right upper lip, biopsy: Basal cell carcinoma, completely excised (measuring 1 cm in greatest dimension) in the planes of sections exmained. B. Right deep cervical lymph node, biopsy: Benign salivary gland tissue with minimal chronic inflammation. Lymph node tissue is not identified. EFRAIN:delmi 03/28/19 COMMENT B. The specimen is evaluated at the time of touch imprints by Dr. Olson. Immediate Evaluation = Lymphocytes mixed with salivary gland tissue are noted. Case has been reviewed in consultation with Dr. Lanza who concurs with the above diagnosis. IDC:AM Please make reference to previous specimen ([id number]) upper right lip area lesion, punch biopsy with diagnosis of basal cell carcinoma. Correlation with clinical, radiologic findings and appropriate follow up are necessary. This case is discussed with Dr. Montemayor on 03/28/19. Case has been reviewed in consultation with Dr. Lanza who concurs with the above diagnosis. IDC:DARRICK MICROSCOPIC DESCRIPTION Slides are reviewed. GROSS DESCRIPTION A - Received fresh for frozen section diagnosis labeled with the patient's name is a specimen designated basal cell carcinoma right upper lip. The specimen consists of a piece of leonardo mucosal tissue measuring 1.5 x 1 x 0.1 cm. The surface shows a focal area of ulceration measuring 0.7 x 0.4 cm. The specimen is oriented by sutures, single - medial, double - superior. The specimen is inked as follows: superior - black, inferior - blue, medial - green, lateral - yellow. The specimen is serially sectioned and submitted entirely for section diagnosis in two cassettes as follows: 1 - medial and lateral margins, 2 - rest of the specimen. / EFRAIN:delmi 03/25/19 B - Received fresh labeled with the patient's name is a specimen designated right side deep cervical lymph node. The specimen consists of an ovoid piece of leonardo soft tissue measuring 1 x 1 x 0.3 cm. The specimen is bisected and four touch imprints are prepared (two stained with Diff-Quik and two stained with H & E). The entire specimen is submitted in one cassette. / SJ:delmi 03/25/19 TC:0 CPT: 92909 x2, 08588, 91216, 11694
[2019-03-25 08:01] VITALS: BP 114/68; PULSE 75; RESP 16; TEMP 36.9; O2SAT 100; BMI 21.9
[2019-03-25] MEDS: Bacitracin 500 UNITS/GM PACKET (12:48)
--- NOTE | 2019-03-25 13:25 | OP.PCM_ITS ---
Problem List (1) Basal cell carcinoma (BCC) of skin of right upper lip Status: Acute (2) Adenopathy, cervical Status: Acute Report of Operation Date of Procedure: 03/25/19 Pre-Operative Diagnosis: Basal cell carcinoma right upper lip, right deep cervical lymphadenopathy Post-Operative Diagnosis: Same Surgery/Procedure Performed:: Excision of BCCA of right upper lip 1.2x0.8 cm, right deep cervical lymph node biopsy Description of Surgical Findings:: Jhoana is a 68-year-old female who initially presented for evaluation of CT scan findings of a enlarged right deep cervical lymph node. She was additionally noted to have a nonhealing ulceration of the right upper lip which biopsy showed to be a basal cell carcinoma. Given her recent transient ischemic attack excision under local was advised due to her elevated risk from this and she was eager to proceed. The risks, alternatives, potential complications, and benefits were discussed at length and any questions answered to the patient and/or caregiver's satisfaction. Witnessed informed consent was obtained in the office, and the patient and/or caregiver was agreeable to proceed. Procedure went as follows: The patient was identified in the preoperative holding and the operative sites marked in accordance with the patient's history, examination, and chart notes. She was then brought to the operating room and positioned on the operating room table. The right face and neck were then prepped and draped in usual sterile fashion. Using 1% lidocaine with 100,000 epinephrine the right upper lid was then injected for a total of 5 cc. There is noted to be a centrally ulcerated lesion with a raised pearly border of the right upper lip skin which was then marked with a 2 mm margin and sharply excised with a 15 blade scalpel down to the zeus-orbital musculature. This was then sharply elevated to free it from the musculature and sent as pathologic specimen which confirmed a basal cell carcinoma with margins free from involvement. Given the size and location and inferiorly pedicled flap 2 x 2 cm in size was then developed and advanced superiorly and medially to close the de fect. This was sutured deeply with interrupted 4-0 Vicryl sutures followed by interrupted 5-0 Monocryl sutures to close the skin. This completed this portion of the procedure. Fresh instruments were obtained at the planned incision on the right neck was then injected with 1% lidocaine with 100,000 epinephrine for a total of 4 cc. Using a 15 blade scalpel, the skin was then incised 3 cm in length through the skin and subcutaneous tissues and platysma. Dissection was then carried out along the sternocleidomastoid and the jugular and carotid arteries identified. Careful dissection within the vascular sheath and fatty capsule did not reveal any significant lymphadenopathy. There was noted to be what appeared to be a satellite salivary gland in the area where the palpable mass was noted and corresponded to the report on the CT scan and this was excised as the lesion of suspicion. Careful evaluation further dissection and palpation revealed no other significant masses or lymphadenopathy. Hemostasis was obtained with bipolar cautery and no significant bleeding was encountered. The wound was then closed deeply with interrupted 3-0 Vicryl sutures followed by running subcuticular stitch of 5-0 Monocryl. Cavilon and Steri-Strips were then applied. Patient was then returned to recovery having tolerated the procedure well without complication. Type of Anesthesia:: Local Special Medications: none Specimen's removed: BCCA right upper lip, right neck mass Drains: none Estimated Blood Loss (mL): 0 mL Fluids Replaced: 0 mL Grafts/Implants Used: none - Complications none - Admit VTE Documentation VTE Present on Admission: No VTE Mechan Device Prophylaxis: None VTE Pharm Prophylaxis ordered?: No Reason prophylaxis not ordered:: Procedure Not Indicated
--- NOTE | 2019-03-25 13:34 | DCINST_ITS ---
- Discharge Diagnoses Current Active Problems: Current Active and Chronic Problems Basal cell carcinoma (BCC) of skin of right upper lip (Acute) Adenopathy, cervical (Acute) You will use the following diet at home:: No restrictions Discharge Activity: Return to Normal Activity Call your doctor if your incision/area has: Increased Pain/ Swelling Call your doctor if you observe: Fever of 101 or Higher, Uncontrolled pain Cleanse incision/area with: Do not get Incision Wet Allergies/Adverse Reactions: Allergies Penicillins Allergy (Verified 03/24/19 08:09) Unknown adhesive tape Adverse Reaction (Verified 03/25/19 07:58) Rash Medications to take at Discharge Escitalopram Oxalate [Lexapro] 10 mg PO DAILY 04/01/17 Multivitamins,Therapeutic [Multivitamin] 1 tab PO DAILY 04/01/17 Melatonin 10 mg PO QHS 10/28/18 Apixaban [Eliquis] 5 mg PO BID #60 tab 11/17/18 Metoprolol(XL)Succ [Toprol Xl (Beta Talita)] 25 mg PO DAILY #30 tab 11/17/18 Acetaminophen [Tylenol] 1,000 mg PO TID PRN 03/24/19 Atorvastatin Calcium [Lipitor] 40 mg PO QHS 03/24/19 Cholecalciferol (Vitamin D3) [Vitamin D3] 5,000 unit PO DAILY 03/24/19 Levothyroxine Sodium [Synthroid] 25 mcg PO DAILY 03/24/19 Loratadine [Claritin] 10 mg PO DAILY PRN 03/24/19 Potassium Chloride 20 meq PO DAILY 03/24/19 Primary Care Physician: Marty Steve Chi, MD [Primary Care Provider] - Test Results: Test results from this visit will be discussed in further detail at your follow- up appointment, if applicable. Please Follow Up With: John Montemayor MD When: 2 weeks
== END 2019-03-25 13:58 | disposition home or self-care (01) ==
LOC: SDC 07:36 → AC 07:37
PROVIDERS: Family Provider Family Medicine Geriatric Medicine; PCP Family Medicine Geriatric Medicine; Referring Provider Otolaryngology; Visit Provider Otolaryngology
PROC: (CPT 14060; principal; 2019-03-25 09:00)
DX: C44.01 Basal cell carcinoma of skin of lip (principal); R59.0 Localized enlarged lymph nodes; M19.90 Unspecified osteoarthritis, unspecified site; I25.2 Old myocardial infarction; F32.9 Major depressive disorder, single episode, unspecified; Z86.73 Personal history of transient ischemic attack (TIA), and cerebral infarction without residual deficits; Z86.2 Personal history of diseases of the blood and blood-forming organs and certain disorders involving the immune mechanism; Z79.01 Long term (current) use of anticoagulants; Z79.899 Other long term (current) drug therapy; Z87.891 Personal history of nicotine dependence
CPT/HCPCS: 14060; 38510; 88305; 88331

== ENCOUNTER → 2019-05-09 09:55 | Outpatient (CLI) | payer MEDICARE, SELFPAY ==
--- NOTE | 2019-05-09 09:56 | ECHOD_ITS ---
Reason For Study: EMBOLI Procedure This was a 2D Doppler, Color Flow transthoracic echocardiogram. Exam performed in department. Left Ventricle Normal size and thickness. The estimated ejection fraction is 65 %. Stage 1 diastolic dysfunction. No regional wall motion abnormalities noted. Right Ventricle Normal size and thickness. Normal systolic function. Atria Normal left atrium. Normal right atrium. Normal atrial septum. Mitral Valve The mitral valve is structurally normal. No prolapse or stenosis seen. Tricuspid Valve Normal tricuspid valve. Trivial tricuspid valve insufficiency. Right ventricular systolic pressure estimated to be 31 mmHg. Aortic Valve Normal aortic valve. Trisinus/trileaflet aortic valve. Trivial aortic valve insufficiency. Pulmonic Valve Normal pulmonic valve. Great Vessels Normal aortic root. Normal arch. Normal inferior vena cava. Inferior vena cava collapse with sniff. Pericardium/Pleural No pericardial effusion. MMode/2D Measurements & Calculations LVIDd: 4.7 cm IVSd: 0.90 cm Ao root diam: 3.3 cm LVIDs: 3.1 cm LVPWd: 1.0 cm RVDd: 2.7 cm FS: 35.2 % LAV(MOD-bp): 36.5 ml LVAd ap4: 24.3 cm2 SV(MOD-sp4): 41.3 ml LAV(MOD-bp) Indexed: 21.1 ml/m2 EDV(MOD-sp4): 64.7 ml LAV(MOD-sp2): 50.2 ml EDV(sp4-el): 66.9 ml LAV(MOD-sp4): 22.5 ml LVAs ap4: 13.1 cm2 ESV(MOD-sp4): 23.4 ml ESV(sp4-el): 23.7 ml EF(MOD-sp4): 63.8 % EF(sp4-el): 64.6 % SV(sp4-el): 43.2 ml LA A4 area: 10.6 cm2 LA dimension(2D): 4.2 cm RA A4 area: 11.8 cm2 Time Measurements MV dec time: 0.24 sec Doppler Measurements & Calculations MV E max rod: 61.5 cm/sec Lat Peak E' Rod: 2.5 cm/sec Med Peak E' Rod: 3.4 cm/sec MV A max rod: 78.4 cm/sec E/E' lat: 24.4 E/E' med: 18.3 MV E/A: 0.79 Ao V2 max: 154.3 cm/sec LV V1 max: 96.5 cm/sec TR max rod: 239.9 cm/sec Ao max P.5 mmHg LV V1 max P.7 mmHg TR max P.0 mmHg Interpretation Summary The estimated ejection fraction is 65 %. Stage 1 diastolic dysfunction. Trivial tricuspid valve insufficiency. Right ventricular systolic pressure estimated to be 31 mmHg. Compared to echo report dated 11/01/2018, no appreciable changes noted. Ordering Physician: Mary Null/Bill Jerez Referring Physician: JORDAN WAGNER CHI Performed By: Shivani Singleton, AMY, RVT
== END ==
PROVIDERS: Family Provider Family Medicine Geriatric Medicine; PCP Family Medicine Geriatric Medicine; Referring Provider Physician Assistant Medical; Visit Provider Physician Assistant Medical
DX: I26.99 Other pulmonary embolism without acute cor pulmonale (principal)
CPT/HCPCS: 93306

== ENCOUNTER → 2019-09-05 15:10 | Outpatient (CLI) | payer MEDICARE, SELFPAY ==
[2019-06-24 13:45] VITALS: BMI 22.4
[2019-09-05 17:24] LABS: Absolute Lymphocyte Count 2.44 X10^3/uL (0.83-4.51); Absolute Neutrophil Count 6.6 X10^3/uL (2.0-7.7); Basophil# 0.09 X10^3/uL; Basophil% 0.9 % (0-1); Eosinophil# 0.29 X10^3/uL; Eosinophils% 2.8 % (0-5); Hematocrit 38.5 % (37-47); Hemoglobin 12.8 g/dL (12.0-15.0); Lymphocyte # 2.44 X10^3/ul (4.0); Lymphocyte % 23.8 % (19-41); Mean Corp Hgb Conc 33.2 g/dL (32-36); Mean Corpuscular Hgb 29.8 pg (27.0-32.0); Mean Corpuscular Volume 89.7 fL (81-99); Mean Platelet Vol. 11.6 fl (6.2-12.0); Monocyte# 0.75 X10^3/uL; Monocyte% 7.3 % (0-10); NRBC Flagged by Analyzer 0 % (0-5); Neutrophil # 6.63 X10^3/uL (2.7-7.7); Neutrophil % 64.6 % (47-70); Platelet Count 424 K/mm3 (150-450); RBC Distribution Width SD 45.6 fl (35.1-43.9); Red Blood Count 4.29 M/mm3 (4.2-5.4); White Blood Count 10.3 K/mm3 (4.4-11.0)
[2019-09-05 17:30] LABS: Vitamin D,25 Hydroxy 33.8 ng/mL (29.95-100.01)
[2019-09-05 17:57] LABS: ALB/GLOB Ratio 0.8 RATIO (0.9-2.4); AST(SGOT) 38 U/L (15-37); Alanine Aminotransfer ALT/SGPT 34 U/L (13-56); Albumin, Serum 3.8 g/dL (3.2-5.0); Alkaline Phosphatase 147 U/L (45-117); Anion Gap 9 (5-15); BUN 15 mg/dL (7-18); BUN/Creat Ratio 18.6 RATIO (10-20); Calcium,Total 9.7 mg/dL (8.5-10.1); Chloride 105 mmol/L (98-107); Creatinine, Serum 0.81 mg/dL (0.55-1.02); EST Glomerular Filtration Rate 75 mL/min (>60); Est Glom Filt Rate - Afr Amer 90 mL/min (>60); Globulin 4.5 g/dL (2.2-4.2); Glucose 190 mg/dL (74-106); Potassium 4.1 mmol/L (3.5-5.1); Protein, Total 8.3 g/dL (6.4-8.2); Sodium Level 136 mmol/L (136-145); Thyroid Stim Hormone (TSH) 3.48 uIU/mL (0.358-3.74)
== END ==
PROVIDERS: PCP Family Medicine Geriatric Medicine; Visit Provider Family Medicine Geriatric Medicine
DX: R53.83 Other fatigue (principal); E55.9 Vitamin D deficiency, unspecified
CPT/HCPCS: 36415; 80053; 82306; 84443; 85025

== ENCOUNTER → 2020-01-25 12:33 | Outpatient (CLI) | payer MEDICARE, SELFPAY ==
[2019-06-24 13:45] VITALS: BMI 22.4
--- NOTE | 2020-01-25 12:37 | RAD_ITS ---
STUDY: X-RAY - RIGHT CLAVICLE REASON FOR EXAM: Female, 69 years old. ANTERIOR PAIN, NO INJURY TECHNIQUE: 2 view(s) of the clavicle. COMPARISON: None. FINDINGS: Normal clavicle. There is mild degenerative arthrosis of the acromioclavicular joint without inferior osseous prominence. Normal visualized sternoclavicular articulation. Normal visualized pulmonary apex. 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 Electronically Signed: Vineet Harrington, at 15:13 EDT , Service support ,
--- NOTE | 2020-01-25 12:37 | RAD_ITS ---
STUDY: X-RAY - RIGHT SHOULDER REASON FOR EXAM: Female, 69 years old. ANTERIOR PAIN, NO INJURY TECHNIQUE: 4 view(s) of the shoulder. COMPARISON: None. FINDINGS: Normal glenohumeral articulation. There is mild degenerative arthrosis of the acromioclavicular joint without inferior osseous spur formation. Normal acromion. Normal humeral head and visualized proximal humerus. The soft tissue structures are unremarkable. Normal visualized pulmonary apex. 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 Electronically Signed: Vineet Harrington, at 15:14 EDT , Service support ,
== END ==
PROVIDERS: PCP Family Medicine Geriatric Medicine; Referring Provider Family Medicine Geriatric Medicine; Visit Provider Family Medicine Geriatric Medicine
DX: M25.511 Pain in right shoulder (principal)
CPT/HCPCS: 73000; 73030

== ENCOUNTER → 2020-02-01 15:41 | Outpatient (CLI) | payer MEDICARE, SELFPAY ==
[2019-06-24 13:45] VITALS: BMI 22.4
--- NOTE | 2020-02-01 15:46 | CT_ITS ---
STUDY: CT CHEST WITH CONTRAST REASON FOR EXAM: Female, 69 years old. FALL ONE YEAR AGO , RIGHT CLAVICLE AREA SWOLLEN RADIATION DOSAGE (If Supplied By Facility): CTDIvol = ( 11.76 ) mGy, DLP = ( 569.52 ) mGycm TECHNIQUE: Transaxial imaging was performed following intravenous administration of IV 100mL Isovue-370. Individualized dose optimization techniques were used for this CT. COMPARISON: Previous study of 02/02/2017 FINDINGS: There is minimal scarring of the lung apices. The lungs are normal. There is no demonstrated pleural abnormality. Normal heart and pericardium. There is an enlarged mediastinal node measuring 1.5 x 2.8 cm, stable from the previous study. Normal hilar regions. Normal enhanced pulmonary arteries. There are calcified plaques of the thoracic aorta. There is diffuse endplate spondylosis of the visualized thoracolumbar spine. There is no demonstrated abnormality of the visualized upper abdomen. CT/Chest WITH Contrast IMPRESSION: 1. Minimal scarring of the lung apices. 2. Enlarged mediastinal node measuring 1.5 x 2.8 cm, stable from previous study of 02/02/2017. 3. Calcified plaques of the thoracic aorta. 4. Diffuse endplate spondylosis of the visualized thoracolumbar spine. Electronically Signed: Marcos Wade MD at 16:40 EDT , Service support ,
--- NOTE | 2020-02-01 15:46 | CT_ITS ---
STUDY: CT SOFT TISSUE NECK WITH CONTRAST REASON FOR EXAM: Female, 69 years old. FALL ONE YEAR AGO , RIGHT CLAVICLE AREA SWOLLEN RADIATION DOSAGE (If Supplied By Facility): CTDIvol = ( 11.76 ) mGy, DLP = ( 569.52 ) mGycm TECHNIQUE: The patient was scanned in a multi-detector CT scanner. High resolution transaxial imaging was performed following intravenous administration of IV 100mL Isovue-370. Sagittal and coronal images were reconstructed. Individualized dose optimization techniques were used for this CT. COMPARISON: None. FINDINGS: A number of images are limited secondary to scanning artifact caused by metallic dental work. Normal bilateral parotid glands. Normal bilateral visitor services specialist spaces. Normal bilateral parapharyngeal spaces. Normal bilateral carotid spaces. Normal bilateral sublingual and submandibular glands and spaces. Normal visualized nasopharynx. Normal retropharyngeal space. Normal perivertebral space. Normal visualized bilateral faucial tonsils. The visualized tongue, tongue base and oropharynx are normal. The visualized cervical lymph nodes (levels I-) are within normal size limits, and maintain normal morphology. There is no demonstrated solid or cystic mass lesion. There is no abnormal contrast enhancement. Normal epiglottis, bilateral vallecula and hypopharynx. The pre-epiglottic and paraglottic adipose spaces are normal. Normal visualized bilateral piriform sinuses, aryepiglottic folds, vocal cords, and arytenoid-cricoid articulations. Normal subglottic trachea. Normal bilateral lobes of the thyroid gland. Normal visualized pulmonary apices. Normal visualized paranasal sinuses. There is anterior cervical fusion at the C5-[address]/Soft Tissue Neck WITH Contrast IMPRESSION: Anterior cervical fusion at the C5-6 level. The study is otherwise unremarkable. Electronically Signed: Marcos Wade MD at 16:25 EDT , Service support ,
[2020-02-01 16:00] LABS: CREATININE FINGERSTICK 0.9 mg/dL (0.55-1.02); EGFR FINGERSTICK > 60.0000 mL/min (>60)
== END ==
PROVIDERS: PCP Family Medicine Geriatric Medicine; Referring Provider Family Medicine Geriatric Medicine; Visit Provider Family Medicine Geriatric Medicine
DX: R60.9 Edema, unspecified (principal)
CPT/HCPCS: 70491; 71260; Q9967

== ENCOUNTER → 2020-03-05 15:09 | Outpatient (CLI) | payer MEDICARE, SELFPAY ==
[2019-06-24 13:45] VITALS: BMI 22.4
[2020-03-05 16:08] LABS: Absolute Lymphocyte Count 2.19 X10^3/uL (0.83-4.51); Basophil# 0.07 X10^3/uL; Basophil% 0.7 % (0-1); Eosinophil# 0.09 X10^3/uL; Eosinophils% 0.9 % (0-5); Hematocrit 40.2 % (37-47); Hemoglobin 13.2 g/dL (12.0-15.0); Lymphocyte # 2.19 X10^3/ul (4.0); Lymphocyte % 21.4 % (19-41); Mean Corp Hgb Conc 32.8 g/dL (32-36); Mean Corpuscular Hgb 29.7 pg (27.0-32.0); Mean Corpuscular Volume 90.3 fL (81-99); Mean Platelet Vol. 10.9 fl (6.2-12.0); Monocyte% 7.8 % (0-10); NRBC Flagged by Analyzer 0 % (0-5); Neutrophil # 7.02 X10^3/uL (2.7-7.7); Neutrophil % 68.8 % (47-70); Platelet Count 381 K/mm3 (150-450); RBC Distribution Width CV 12.8 % (11.6-14.6); Red Blood Count 4.45 M/mm3 (4.2-5.4); White Blood Count 10.2 K/mm3 (4.4-11.0)
[2020-03-05 16:35] LABS: Vitamin D,25 Hydroxy 41.3 ng/mL
[2020-03-05 17:49] LABS: ALB/GLOB Ratio 0.9 RATIO (0.9-2.4); AST(SGOT) 12 U/L (15-37); Alanine Aminotransfer ALT/SGPT 19 U/L (13-56); Albumin, Serum 3.5 g/dL (3.2-5.0); Alkaline Phosphatase 170 U/L (45-117); Anion Gap 7 (5-15); BUN 17 mg/dL (7-18); BUN/Creat Ratio 18.5 RATIO (10-20); Calcium,Total 9.3 mg/dL (8.5-10.1); Chloride 96 mmol/L (98-107); Creatinine, Serum 0.92 mg/dL (0.55-1.02); EST Glomerular Filtration Rate 64 mL/min (>60); Est Glom Filt Rate - Afr Amer 77 mL/min (>60); Globulin 4.1 g/dL (2.2-4.2); Glucose 518 mg/dL (74-106); Potassium 4.2 mmol/L (3.5-5.1); Protein, Total 7.6 g/dL (6.4-8.2); Sodium Level 130 mmol/L (136-145); Thyroid Stim Hormone (TSH) 1.68 uIU/mL (0.358-3.74)
== END ==
PROVIDERS: PCP Family Medicine Geriatric Medicine; Visit Provider Family Medicine Geriatric Medicine
DX: R53.83 Other fatigue (principal); E55.9 Vitamin D deficiency, unspecified
CPT/HCPCS: 36415; 80053; 82306; 84443; 85025

== ENCOUNTER → 2020-03-06 12:55 | Outpatient (CLI) | payer MEDICARE, SELFPAY ==
[2019-06-24 13:45] VITALS: BMI 22.4
[2020-03-06 16:32] LABS: Anion Gap 4 (5-15); BUN 12 mg/dL (7-18); BUN/Creat Ratio 17.7 RATIO (10-20); Calcium,Total 8.2 mg/dL (8.5-10.1); Chloride 106 mmol/L (98-107); Creatinine, Serum 0.68 mg/dL (0.55-1.02); EST Glomerular Filtration Rate 91 mL/min (>60); Est Glom Filt Rate - Afr Amer 110 mL/min (>60); Glucose 254 mg/dL (74-106); Potassium 3.9 mmol/L (3.5-5.1); Sodium Level 138 mmol/L (136-145)
== END ==
PROVIDERS: PCP Family Medicine Geriatric Medicine; Visit Provider Family Medicine Geriatric Medicine
DX: E87.1 Hypo-osmolality and hyponatremia (principal)
CPT/HCPCS: 36415; 80048

== ENCOUNTER 2020-03-08 17:34 | Emergency (ER) | payer MEDICARE, SELFPAY ==
[2019-06-24 13:45] VITALS: BMI 22.4
[2020-03-08 17:35] VITALS: BP 122/77; PULSE 95; RESP 18; TEMP 36.2; O2SAT 98; BMI 21.1
[2020-03-08 19:09] LABS: Bacteria 0 SEEN /hpf (None Seen); Red Blood Cells-Urine 0 SEEN /hpf (0-5); Squamous Epithelial Cells - UA 0 SEEN /hpf (5-10)
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
[2020-03-08] MEDS: 0.9% Normal Saline 1,000 ML 1000 ML IV (19:28)
[2020-03-08 19:36] LABS: Bedside Glucose 235 mg/dL (70-110)
[2020-03-08 19:40] LABS: Absolute Lymphocyte Count 2.44 X10^3/uL (0.83-4.51); Absolute Neutrophil Count 5.9 X10^3/uL (2.0-7.7); Basophil# 0.06 X10^3/uL; Basophil% 0.7 % (0-1); Eosinophil# 0.08 X10^3/uL; Eosinophils% 0.9 % (0-5); Hematocrit 36.6 % (37-47); Hemoglobin 12.5 g/dL (12.0-15.0); Lymphocyte # 2.44 X10^3/ul (4.0); Lymphocyte % 26.5 % (19-41); Mean Corp Hgb Conc 34.2 g/dL (32-36); Mean Corpuscular Hgb 30.9 pg (27.0-32.0); Mean Corpuscular Volume 90.6 fL (81-99); Mean Platelet Vol. 10.5 fl (6.2-12.0); Monocyte# 0.65 X10^3/uL; Monocyte% 7.1 % (0-10); NRBC Flagged by Analyzer 0 % (0-5); Neutrophil # 5.93 X10^3/uL (2.7-7.7); Neutrophil % 64.4 % (47-70); Platelet Count 358 K/mm3 (150-450); RBC Distribution Width CV 12.8 % (11.6-14.6); RBC Distribution Width SD 42.5 fl (35.1-43.9); Red Blood Count 4.04 M/mm3 (4.2-5.4); White Blood Count 9.2 K/mm3 (4.4-11.0)
[2020-03-08 19:46] LABS: Anion Gap 5 (5-15); BUN 10 mg/dL (7-18); BUN/Creat Ratio 14.7 RATIO (10-20); Chloride 105 mmol/L (98-107); Creatinine, Serum 0.68 mg/dL (0.55-1.02); EST Glomerular Filtration Rate 91 mL/min (>60); Est Glom Filt Rate - Afr Amer 110 mL/min (>60); Estimated Creatinine Clearance 49.88 ml/min; Glucose 245 mg/dL (74-106); Potassium 3.6 mmol/L (3.5-5.1); Sodium Level 137 mmol/L (136-145)
[2020-03-08 20:03] LABS: Color, Urine Yellow (Yellow); Glucose, Dipstick 250 mg/dl (Normal); Ketone-Dipstick 15 mg/dl (Negative); Leukocyte Esterase-Dipstick 500 /ul (Negative); Nitrite-Dipstick Negative (Negative); Occult Blood-Urine 10 /ul (Negative); Protein-Dipstick 100 mg/dl (Negative); Specific Gravity, Urine 1.025 (1.002-1.030); Urine Clarity Sl. Cloudy (Clear); Urine Urobilinogen 4 mg/dl (Normal)
[2020-03-08 20:05] LABS: Urine Bilirubin Dipstick 1 mg/dL (Negative)
[2020-03-08 20:25] LABS: Calcium Oxalate Crystals Ur 2+ /hpf (<or=2+); Hyaline Cast 5-10 SEEN /lpf (0-5); Mucous, Urine RARE /hpf (<or=2+)
[2020-03-08 20:26] LABS: White Blood Cells 0-5 SEEN /hpf (0-5)
[2020-03-08 21:15] VITALS: BP 109/64; PULSE 70; RESP 18; O2SAT 98
== END 2020-03-08 21:25 | disposition home or self-care (01) ==
PROVIDERS: Student in an Organized Health Care Education/Training Program; Emergency Provider Emergency Medicine; PCP Family Medicine Geriatric Medicine
DX: E11.65 Type 2 diabetes mellitus with hyperglycemia (principal); I10 Essential (primary) hypertension; F41.9 Anxiety disorder, unspecified; F32.9 Major depressive disorder, single episode, unspecified; I25.2 Old myocardial infarction; Z86.73 Personal history of transient ischemic attack (TIA), and cerebral infarction without residual deficits; Z86.711 Personal history of pulmonary embolism; Z86.718 Personal history of other venous thrombosis and embolism; Z79.84 Long term (current) use of oral hypoglycemic drugs; Z79.01 Long term (current) use of anticoagulants; Z79.899 Other long term (current) drug therapy; Z87.891 Personal history of nicotine dependence
CPT/HCPCS: 80048; 81001; 82962; 85025; 87077; 87086; 87088; 87186; 96360; 99283; J7030; A4216

== ENCOUNTER → 2020-06-07 14:30 | Outpatient (CLI) | payer MEDICARE, SELFPAY ==
[2020-06-07 17:07] LABS: Absolute Lymphocyte Count 2.39 X10^3/uL (0.83-4.51); Absolute Neutrophil Count 5.9 X10^3/uL (2.0-7.7); Basophil# 0.07 X10^3/uL; Basophil% 0.8 % (0-1); Eosinophil# 0.16 X10^3/uL; Eosinophils% 1.7 % (0-5); Hematocrit 38.8 % (37-47); Hemoglobin 12.1 g/dL (12.0-15.0); Lymphocyte # 2.39 X10^3/ul (4.0); Lymphocyte % 26.1 % (19-41); Mean Corp Hgb Conc 31.2 g/dL (32-36); Mean Corpuscular Hgb 29.9 pg (27.0-32.0); Mean Corpuscular Volume 95.8 fL (81-99); Mean Platelet Vol. 11.6 fl (6.2-12.0); Monocyte# 0.65 X10^3/uL; Monocyte% 7.1 % (0-10); NRBC Flagged by Analyzer 0 % (0-5); Neutrophil # 5.85 X10^3/uL (2.7-7.7); Platelet Count 377 K/mm3 (150-450); RBC Distribution Width CV 13.7 % (11.6-14.6); RBC Distribution Width SD 49.3 fl (35.1-43.9); Red Blood Count 4.05 M/mm3 (4.2-5.4); White Blood Count 9.2 K/mm3 (4.4-11.0)
[2020-06-07 17:16] LABS: Vitamin D,25 Hydroxy 45.8 ng/mL
[2020-06-07 17:24] LABS: ALB/GLOB Ratio 0.8 RATIO (0.9-2.4); AST(SGOT) 21 U/L (15-37); Alanine Aminotransfer ALT/SGPT 26 U/L (13-56); Albumin, Serum 3.6 g/dL (3.2-5.0); Alkaline Phosphatase 141 U/L (45-117); Anion Gap 6 (5-15); BUN 16 mg/dL (7-18); BUN/Creat Ratio 20.2 RATIO (10-20); Calcium,Total 9.3 mg/dL (8.5-10.1); Chloride 104 mmol/L (98-107); Creatinine, Serum 0.79 mg/dL (0.55-1.02); EST Glomerular Filtration Rate 76 mL/min (>60); Est Glom Filt Rate - Afr Amer 92 mL/min (>60); Globulin 4.6 g/dL (2.2-4.2); Glucose 121 mg/dL (74-106); Potassium 3.5 mmol/L (3.5-5.1); Protein, Total 8.2 g/dL (6.4-8.2); Sodium Level 137 mmol/L (136-145); Thyroid Stim Hormone (TSH) 1.53 uIU/mL (0.358-3.74)
== END ==
PROVIDERS: PCP Family Medicine Geriatric Medicine; Visit Provider Family Medicine Geriatric Medicine
DX: E11.65 Type 2 diabetes mellitus with hyperglycemia (principal); E55.9 Vitamin D deficiency, unspecified; I10 Essential (primary) hypertension
CPT/HCPCS: 36415; 80053; 82306; 84443; 85025

== ENCOUNTER → 2020-07-19 17:19 | Outpatient (CLI) | payer MEDICARE, SELFPAY | PROVIDERS: PCP Family Medicine Geriatric Medicine; Referring Provider Family Medicine Geriatric Medicine; Visit Provider Family Medicine Geriatric Medicine | DX: R06.89 Other abnormalities of breathing (principal) | CPT/HCPCS: 87633; 87635; C9803; U0003 ==

== ENCOUNTER → 2020-09-11 14:25 | Outpatient (CLI) | payer MEDICARE, SELFPAY ==
[2020-09-11 17:17] LABS: Absolute Lymphocyte Count 2.12 X10^3/uL (0.83-4.51); Absolute Neutrophil Count 4.6 X10^3/uL (2.0-7.7); Basophil# 0.06 X10^3/uL; Basophil% 0.8 % (0-1); Eosinophil# 0.13 X10^3/uL; Eosinophils% 1.7 % (0-5); Hemoglobin 11.6 g/dL (12.0-15.0); Lymphocyte # 2.12 X10^3/ul (4.0); Lymphocyte % 28.5 % (19-41); Mean Corp Hgb Conc 31.4 g/dL (32-36); Mean Corpuscular Hgb 29.5 pg (27.0-32.0); Mean Corpuscular Volume 94.1 fL (81-99); Monocyte# 0.56 X10^3/uL; Monocyte% 7.5 % (0-10); NRBC Flagged by Analyzer 0 % (0-5); Neutrophil # 4.56 X10^3/uL (2.7-7.7); Neutrophil % 61.2 % (47-70); Platelet Count 381 K/mm3 (150-450); RBC Distribution Width SD 48.4 fl (35.1-43.9); Red Blood Count 3.93 M/mm3 (4.2-5.4); White Blood Count 7.5 K/mm3 (4.4-11.0)
[2020-09-11 17:51] LABS: ALB/GLOB Ratio 0.7 RATIO (0.9-2.4); AST(SGOT) 18 U/L (15-37); Alanine Aminotransfer ALT/SGPT 20 U/L (13-56); Albumin, Serum 3.2 g/dL (3.2-5.0); Alkaline Phosphatase 119 U/L (45-117); Anion Gap 7 (5-15); BUN 12 mg/dL (7-18); BUN/Creat Ratio 17.6 RATIO (10-20); Calcium,Total 8.8 mg/dL (8.5-10.1); Chloride 104 mmol/L (98-107); Creatinine, Serum 0.68 mg/dL (0.55-1.02); EST Glomerular Filtration Rate 90 mL/min (>60); Est Glom Filt Rate - Afr Amer 109 mL/min (>60); Globulin 4.4 g/dL (2.2-4.2); Glucose 120 mg/dL (74-106); Potassium 3.8 mmol/L (3.5-5.1); Protein, Total 7.6 g/dL (6.4-8.2); Sodium Level 138 mmol/L (136-145); Thyroid Stim Hormone (TSH) 1.71 uIU/mL (0.358-3.74)
== END ==
PROVIDERS: PCP Family Medicine Geriatric Medicine; Visit Provider Family Medicine Geriatric Medicine
DX: E11.65 Type 2 diabetes mellitus with hyperglycemia (principal); E55.9 Vitamin D deficiency, unspecified; I10 Essential (primary) hypertension
CPT/HCPCS: 36415; 80053; 82306; 84443; 85025

== ENCOUNTER → 2020-12-11 15:19 | Outpatient (CLI) | payer MEDICARE, SELFPAY ==
[2020-12-11 16:59] LABS: Absolute Lymphocyte Count 1.77 X10^3/uL (0.83-4.51); Absolute Neutrophil Count 5.5 X10^3/uL (2.0-7.7); Basophil# 0.06 X10^3/uL; Basophil% 0.7 % (0-1); Eosinophil# 0.35 X10^3/uL; Eosinophils% 4.2 % (0-5); Hematocrit 38.4 % (37-47); Hemoglobin 12.4 g/dL (12.0-15.0); Lymphocyte # 1.77 X10^3/ul (0.83-4.51); Mean Corp Hgb Conc 32.3 g/dL (32-36); Mean Corpuscular Hgb 29.7 pg (27.0-32.0); Mean Corpuscular Volume 91.9 fL (81-99); Mean Platelet Vol. 11.3 fl (6.2-12.0); Monocyte# 0.77 X10^3/uL; Monocyte% 9.1 % (0-10); NRBC Flagged by Analyzer 0.5 % (0-5); Neutrophil # 5.45 X10^3/uL (2.7-7.7); Neutrophil % 64.8 % (47-70); Platelet Count 390 K/mm3 (150-450); RBC Distribution Width CV 13.5 % (11.6-14.6); RBC Distribution Width SD 46.1 fl (35.1-43.9); Red Blood Count 4.18 M/mm3 (4.2-5.4); White Blood Count 8.4 K/mm3 (4.4-11.0)
[2020-12-11 17:38] LABS: ALB/GLOB Ratio 0.8 RATIO (0.9-2.4); AST(SGOT) 23 U/L (15-37); Alanine Aminotransfer ALT/SGPT 29 U/L (13-56); Albumin, Serum 3.5 g/dL (3.2-5.0); Alkaline Phosphatase 160 U/L (45-117); Anion Gap 9 (5-15); BUN 14 mg/dL (7-18); BUN/Creat Ratio 19.8 RATIO (10-20); Calcium,Total 9.3 mg/dL (8.5-10.1); Chloride 102 mmol/L (98-107); Creatinine, Serum 0.71 mg/dL (0.55-1.02); EST Glomerular Filtration Rate 86 mL/min (>60); Est Glom Filt Rate - Afr Amer 105 mL/min (>60); Globulin 4.6 g/dL (2.2-4.2); Glucose 83 mg/dL (74-106); Potassium 3.7 mmol/L (3.5-5.1); Protein, Total 8.1 g/dL (6.4-8.2); Sodium Level 138 mmol/L (136-145); Thyroid Stim Hormone (TSH) 1.18 uIU/mL (0.358-3.74)
[2020-12-13 12:15] LABS: Vitamin D,25 Hydroxy 46.1 ng/mL
== END ==
PROVIDERS: PCP Family Medicine Geriatric Medicine; Visit Provider Family Medicine Geriatric Medicine
DX: I10 Essential (primary) hypertension (principal); E55.9 Vitamin D deficiency, unspecified; E11.65 Type 2 diabetes mellitus with hyperglycemia
CPT/HCPCS: 36415; 80053; 82306; 84443; 85025

== ENCOUNTER → 2020-12-14 12:58 | Outpatient (CLI) | payer MEDICARE, SELFPAY ==
--- NOTE | 2020-12-14 13:00 | ECHOD_ITS ---
Reason For Study: SOB Procedure This was a 2D Doppler, Color Flow transthoracic echocardiogram. Technically difficult study, images were breath dependent. The study was technically difficult. Exam performed in department. Left Ventricle Normal LV size. Mild concentric left ventricular hypertrophy. Left ventricular systolic function is normal. The estimated ejection fraction is 65 %. Diastolic function is indeterminate. No regional wall motion abnormalities noted. Right Ventricle Normal RV size. Normal systolic function. Atria The left atrium is mildly enlarged. Normal right atrium. No doppler evidence for ASD. Mitral Valve There is no mitral annular calcification. Normal mitral valve. Trivial mitral valve insufficiency. Tricuspid Valve Normal tricuspid valve. Trivial tricuspid valve insufficiency. Right ventricular systolic pressure estimated to be 27 mmHg. Aortic Valve Trisinus/trileaflet aortic valve. Normal aortic valve. Pulmonic Valve The pulmonic valve is not well visualized. Great Vessels The aortic root is not well visualized. Pericardium/Pleural No pericardial effusion. MMode/2D Measurements & Calculations LVIDd: 3.7 cm IVSd: 1.3 cm LA dimension: 3.3 cm LVIDs: 2.4 cm LVPWd: 1.4 cm FS: 35.7 % LAV(MOD-bp): 40.9 ml LA A4 area: 15.8 cm2 RA A4 area: 13.1 cm2 LAV(MOD-bp) Indexed: 23.3 ml/m2 LAV(MOD-sp2): 37.3 ml LAV(MOD-sp4): 41.6 ml Time Measurements MV dec time: 0.30 sec Doppler Measurements & Calculations MV E max rod: 54.0 cm/sec Lat Peak E' Rod: 3.9 cm/sec Med Peak E' Rod: 12.8 cm/sec MV A max rod: 85.4 cm/sec E/E' lat: 13.7 E/E' med: 4.2 MV E/A: 0.63 MV V2 max: 93.1 cm/sec MV P1/2t max rod: 69.6 cm/sec Ao V2 max: 125.6 cm/sec MV max P.5 mmHg MV P1/2t: 103.3 msec Ao max P.3 mmHg MV V2 mean: 46.2 cm/sec MV dec slope: 197.2 cm/sec2 MV mean P.0 mmHg MVA(P1/2t): 2.1 cm2 MV V2 VTI: 27.1 cm LV V1 max: 93.8 cm/sec PA V2 max: 78.7 cm/sec TR max rod: 243.1 cm/sec LV V1 max P.5 mmHg TR max P.6 mmHg ECHO/Echo Complete Interpretation Summary The study was technically difficult. Left ventricular systolic function is normal. The estimated ejection fraction is 65 %. Mild concentric left ventricular hypertrophy. The left atrium is mildly enlarged. Trivial mitral valve insufficiency. Trivial tricuspid valve insufficiency. Right ventricular systolic pressure estimated to be 27 mmHg. Diastolic function is indeterminate. Ordering Physician: Marty Steve Referring Physician: Marty Steve Chi Performed By: Rik Shaikh RCS
== END ==
PROVIDERS: PCP Family Medicine Geriatric Medicine; Referring Provider Family Medicine Geriatric Medicine; Visit Provider Family Medicine Geriatric Medicine
DX: R06.02 Shortness of breath (principal)
CPT/HCPCS: 93306

== ENCOUNTER → 2020-12-21 08:10 | Outpatient (CLI) | payer MEDICARE, SELFPAY ==
--- NOTE | 2020-12-21 13:27 | PFT ---
INTRODUCTION: The patient is a 70-year-old female that presents for pulmonary function studies secondary to a diagnosis of shortness of breath. Respiratory therapy reports good patient effort. Bronchodilators were used during testing. INTERPRETATION: Forced expiration spirometry demonstrates no evidence of a large airways obstructive ventilatory defect. There was no significant response to aerosolized bronchodilators. Spirograms are of good quality and plateau normally. Body plus tomography was performed and reveals lung volumes to be within normal limits. Diffusing capacity by single breath CO is reduced to 61% of predicted. IMPRESSION: Isolated reduction in diffusing capacity, which could be related to an underlying pulmonary vascular disorder such as pulmonary hypertension.
== END ==
PROVIDERS: PCP Family Medicine Geriatric Medicine; Referring Provider Family Medicine Geriatric Medicine; Visit Provider Family Medicine Geriatric Medicine
DX: R06.02 Shortness of breath (principal)
CPT/HCPCS: 94060; 94726; 94729

== ENCOUNTER → 2021-03-11 14:58 | Outpatient (CLI) | payer MEDICARE, SELFPAY ==
[2021-03-11 17:03] LABS: Absolute Lymphocyte Count 2.13 X10^3/uL (0.83-4.51); Absolute Neutrophil Count 4.8 X10^3/uL (2.0-7.7); Basophil# 0.06 X10^3/uL; Basophil% 0.8 % (0-1); Eosinophil# 0.15 X10^3/uL; Eosinophils% 1.9 % (0-5); Hematocrit 37.5 % (37-47); Hemoglobin 11.8 g/dL (12.0-15.0); Lymphocyte # 2.13 X10^3/ul (0.83-4.51); Lymphocyte % 27.7 % (19-41); Mean Corp Hgb Conc 31.5 g/dL (32-36); Mean Corpuscular Hgb 29.3 pg (27.0-32.0); Mean Corpuscular Volume 93.1 fL (81-99); Mean Platelet Vol. 11.2 fl (6.2-12.0); Monocyte# 0.55 X10^3/uL; Monocyte% 7.1 % (0-10); NRBC Flagged by Analyzer 0 % (0-5); Neutrophil # 4.78 X10^3/uL (2.7-7.7); Neutrophil % 62.1 % (47-70); Platelet Count 343 K/mm3 (150-450); RBC Distribution Width CV 14.7 % (11.6-14.6); Red Blood Count 4.03 M/mm3 (4.2-5.4); White Blood Count 7.7 K/mm3 (4.4-11.0)
[2021-03-11 17:16] LABS: Vitamin D,25 Hydroxy 49.6 ng/mL
[2021-03-11 17:30] LABS: ALB/GLOB Ratio 0.8 RATIO (0.9-2.4); AST(SGOT) 25 U/L (15-37); Alanine Aminotransfer ALT/SGPT 24 U/L (13-56); Albumin, Serum 3.4 g/dL (3.2-5.0); Alkaline Phosphatase 106 U/L (45-117); Anion Gap 5 (5-15); BUN 11 mg/dL (7-18); BUN/Creat Ratio 16.2 RATIO (10-20); Calcium,Total 8.8 mg/dL (8.5-10.1); Chloride 108 mmol/L (98-107); Creatinine, Serum 0.68 mg/dL (0.55-1.02); EST Glomerular Filtration Rate 91 mL/min (>60); Est Glom Filt Rate - Afr Amer 110 mL/min (>60); Globulin 4.1 g/dL (2.2-4.2); Glucose 92 mg/dL (74-106); Potassium 3.7 mmol/L (3.5-5.1); Protein, Total 7.5 g/dL (6.4-8.2); Sodium Level 139 mmol/L (136-145); Thyroid Stim Hormone (TSH) 1.25 uIU/mL (0.358-3.74)
== END ==
PROVIDERS: PCP Family Medicine Geriatric Medicine; Visit Provider Family Medicine Geriatric Medicine
DX: E11.65 Type 2 diabetes mellitus with hyperglycemia (principal); E55.9 Vitamin D deficiency, unspecified; I10 Essential (primary) hypertension
CPT/HCPCS: 36415; 80053; 82306; 84443; 85025

== ENCOUNTER 2021-07-16 20:13 | Emergency (ER) | payer MEDICARE, SELFPAY ==
[2021-07-16 20:16] VITALS: BP 158/81; PULSE 81; RESP 16; TEMP 36.6; O2SAT 95; BMI 25.2
--- NOTE | 2021-07-16 21:03 | EDS_ITS ---
HPI History of Present Illness Chief Complaint: Nausea/Vomiting/Diarrhea Detail of Chief Complaint: None as yet, vomiting, diarrhea, and abdominal pain Informant: patient Narrative Narrative: Patient presents with sudden onset of symptoms around 4 PM. She had just eaten soup around 3 PM that was in a packet that she just added water to. Patient an hour later started having vomiting and diarrhea that was severe. She has had multiple episodes of each. She denies any sick contacts. She lives alone. She has had the Covid vaccine and booster. She denies recent illness prior to this. She denies fever. She describes abdominal cramping but no significant pain. Patient feels chilled. She denies urinary symptoms. No prior abdominal surgeries. Patient was worried about food poisoning. EMS was called because patient had complained of some chest discomfort but she states it was from all the vomiting that she had been doing. Prior similar symptoms: No [facility], [facility] Medical History (Updated 07/17/21 @ 00:[address] Praneeth Andrade, DO) Anxiety and depression CVA (cerebral vascular accident) HTN (hypertension) Non-ST elevation [place] (NSTEMI) Pulmonary embolism PVCs (premature ventricular contractions) Home Medications escitalopram oxalate 10 mg PO DAILY 04/01/17 [History Last Taken 03/25/19] multivitamin with folic acid 1 tab PO DAILY 04/01/17 [History Last Taken 10/25/18] apixaban 5 mg PO BID #60 tab 11/17/18 [Rx Last Taken Unknown] acetaminophen 1,000 mg PO TID PRN 03/24/19 [History Last Taken Unknown] atorvastatin 40 mg PO QHS 03/24/19 [History Last Taken Unknown] cholecalciferol (vitamin D3) 5,000 unit PO DAILY 03/24/19 [History Last Taken Unknown] levothyroxine 25 mcg PO DAILY 03/24/19 [History Last Taken Unknown] loratadine 10 mg PO DAILY PRN 03/24/19 [History Last Taken Unknown] potassium chloride 20 meq PO DAILY 03/24/19 [History Last Taken Unknown] melatonin 10 mg capsule 10 mg PO QHS PRN 06/09/19 [History Last Taken Unknown] metoprolol succinate 25 mg tablet,extended release 24 hr 12.5 mg PO DAILY tab 06/24/19 [History Last Taken Unknown] metformin 1,000 mg PO BID 03/08/20 [History Last Taken Unknown] Allergy/AdvReac Type Severity Reaction Status Date / Time Penicillins Allergy Unknown Verified 07/16/21 20:19 adhesive tape AdvReac Rash Verified 07/16/21 20:19 Surgical History Closed left hip fracture Social History (Updated 06/24/19 @ 15:14 by Arturo eLe VC++ DEVELOPER, VC++ DEVELOPER-C) Smoking Status: Former smoker ROS ROS ED Constitutional Constitutional ED: Reports systems reviewed and no addt'l complaints, except as documented; Denies body ache(s), change in weight or chills Eyes Eyes: Denies acute decrease in peripheral vision, change in vision, double vision or loss of vision ENT ENT ED: Reports none; Denies ear pain, lip swelling, loss taste/smell, neck pain, otalgia or sore throat Cardiovascular Cardiovascular: Reports none and chest pain; Denies abdominal pain, chest pain with activity, leg edema, lightheadedness, palpitations, rapid heart rate or syncope Respiratory/Chest Respiratory/Chest: Reports none; Denies change in mental status, dry cough, dyspnea, hemoptysis, shortness of breath at rest or shortness of breath with exertion Gastrointestinal Gastrointestinal: Reports none, abdominal pain, diarrhea, nausea and vomiting; Denies change in stool character, hematemesis, hematochezia, melena or rectal bleeding Genitourinary Genitourinary ED: Reports none; Denies abdominal discomfort, anuria, dysuria, genital pain or polyuria Musculoskeletal Musculoskeletal: Reports none; Denies arthralgias, back pain, difficulty walking, extremity pain, muscle weakness or myalgias Integumentary Reports none; Denies abscess or rash Neurologic Neurologic: Reports none; Denies abnormal gait, confusion, focal weakness, frequent falls, headache(s), loss of vision, numbness, paresthesias, radicular pain, vertigo or weakness Psychiatric Psychiatric: Reports systems reviewed and no addt'l complaints, except as documented and none; Denies behavioral changes, confusion, difficulty concentrating, hallucinations, suicidal ideation, tactile hallucinations or visual hallucinations Endocrine Endocrinology: Denies none, cold intolerance, excessive sweating, fatigue or heat intolerance Hematologic/Lymphatic Hematologic/Lymphatic: Reports none; Denies anemia, easy bleeding or easy bruising Allergic/Immunologic Allergic/Immunologic ED: Denies as per HPI, none, lip swelling, mouth swelling, throat swelling, tongue swelling or hives EXAM Physical Exam Const Vital Signs: 07/16/21 20:16 07/16/21 22:30 Temperature 98 F Temperature Source Temporal Pulse Rate 81 81 Respiratory Rate 16 14 Blood Pressure 158/81 H 147/83 H Blood Pressure Mean 106 104 Pulse Ox 95 99 Oxygen Delivery Method Room Air Room Air Positive well nourished and well developed General Appearance ED: well developed and NAD HEENT Reports TM's clear and moist mucous membranes normocephalic and atraumatic; Negative for trauma or tenderness Tympanic Membrane ED: Yes TM's clear Eyes PERRL and EOMs intact bilaterally General Eye ED: Negative for pale conjunctiva or scleral icterus Neck no lymphadenopathy, supple and no JVD General: Negative for tenderness Chest Wall inspection of chest normal and palpation of chest normal Chest: Negative for tenderness Resp normal respiratory effort and clear to auscultation bilaterally Effort and Inspection: Negative for respiratory distress or pain with movement Auscultation: Negative for rhonchi, wheezes or diminished lung sounds Cardio regular rate, regular rhythm, S1 normal heart sound, S2 normal heart sound and no murmurs Peripheral Pulses: pulses 2+ throughout GI normal to inspection, nondistended, normoactive bowel sounds, soft to palpation, non-tender, non-distended and no masses Back/Spine no CVA tenderness and no thoracic nor lumbar tenderness Extremity normal to inspection General Extremety ED: Negative for edema General Extremity: Negative for edema Neuro oriented x3, CN's II-XII intact bilaterally, no sensory deficits noted and gait normal Sensorium / Orientation: awake, alert, oriented to person, oriented to place and oriented to time Motor Exam: strength 5/5 throughout and strength abnormal Psych mental status grossly normal Skin no rashes or lesions noted and no wounds MDM MDM MDM Narrative Medical decision making narrative: Patient. Patient was medicated with Zofran. Patient continued to have nausea and pain and was given morphine and Zofran. She initially also received Bentyl. 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 Case discussed with general surgeon on-call Dr. Ralph Sorensen who will present to the emergency department to evaluate patient. Lab Data Attestation: I reviewed the patient's lab results. Labs: Laboratory Results - last 24 hr 07/16/21 07/16/21 07/16/21 19:58 19:58 21:50 WBC 24.1 H RBC 4.69 Hgb 14.0 Hct 43.0 MCV 91.7 MCH 29.9 MCHC 32.6 RDW Std Deviation 47.2 H RDW Coeff of [place] 14.0 Plt Count 516 H MPV 11.7 Immature Gran % (Auto) 0.700 Neut % (Auto) 76.8 H Lymph % (Auto) 16.7 L [place] % (Auto) 4.9 Eos % (Auto) 0.5 Baso % (Auto) 0.4 Absolute Neuts (auto) 18.5 H Absolute Lymphs (auto) 4.02 Nucleated RBC % 0 Sodium 141 Potassium 3.2 L Chloride 104 Carbon Dioxide 24.0 Anion Gap 13 BUN 15 Creatinine 0.83 Estim Creat Clear Calc 61.80 Est GFR (MDRD) Af Amer 87 Est GFR (MDRD) Non-Af 72 BUN/Creatinine Ratio 18.1 Glucose 177 H Calcium 10.4 H Total Bilirubin 0.60 AST 22 ALT 21 Alkaline Phosphatase 119 H Troponin I High Sens 5 Total Protein 8.4 H Albumin 3.8 Globulin 4.6 H Albumin/Globulin Ratio 0.8 L Urine Color [place] Urine Clarity Sl. 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 N.B. : The above Results were Read Back by Felipe Vuong MD to Praneeth García MD, and understanding confirmed on 07/16/2021 23:45:27 (ET). Electronically Signed: Felipe Vuong MD at 23:43 EST Tel , Service support , EKG Initial EKG: Attestation: I personally reviewed and interpreted this EKG as follows: Comments: Sinus rhythm with ventricular rate of [address] changes Prior EKG tracings: available for review Prior: Changed Discharge Plan Triage Chief Complaint: Nausea/Vomiting/Diarrhea ED Provider: Praneeth Andrade Dx/Rx/DC Orders Clinical Impression: Acute cholecystitis Prescriptions: No Action metoprolol succinate 25 mg tablet extended release 24 hr 12.5 mg PO DAILY RF: 0 escitalopram oxalate 10 MG tablet 10 mg PO DAILY RF: 0 multivitamin with folic acid 1 TABLET tablet 1 tab PO DAILY RF: 0 melatonin 10 mg capsule 10 mg PO QHS PRN (Reason: sleep) RF: 0 apixaban 5 MG tablet 5 mg PO BID Qty: 60 RF: 0 cholecalciferol (vitamin D3) 5,000 UNIT capsule 5,000 unit PO DAILY RF: 0 atorvastatin 80 MG tablet 40 mg PO QHS RF: 0 acetaminophen 500 MG tablet 1,000 mg PO TID PRN (Reason: Pain) RF: 0 loratadine 10 MG tablet 10 mg PO DAILY PRN (Reason: Allergies) RF: 0 levothyroxine 25 MCG tablet 25 mcg PO DAILY RF: 0 potassium chloride 20 MEQ tablet,ER particles/crystals 20 meq PO DAILY RF: 0 metformin 1,000 MG tablet 1,000 mg PO BID RF: 0 Primary Care Provider: Marty Steve Chi Referrals: Marty Steve Chi, MD [Primary Care Provider] - Disposition Disposition: Acute Care Hospital [facility]
--- NOTE | 2021-07-16 21:04 | EKG12_ITS ---
Test Reason : DYSRHYTHMIA Blood Pressure : / mmHG Vent. Rate : 085 BPM Atrial Rate : 085 BPM P-R Int : 142 ms QRS Dur : 080 ms QT Int : 402 ms P-R-T Axes : 023 075 060 degrees QTc Int : 478 ms Normal Sinus Rhythm Low voltage QRS ST & T wave abnormality, consider lateral ischemia Abnormal ECG Confirmed by JOSE OROSCO, QUIRINO ([id number]), commercial production editor EUGENE HERNANDEZ ([id number]) on 07/18/2021 8:57:50 AM Referred By: WILNER Confirmed By:QUIRINO GARCIA MD
[2021-07-16] MEDS: Ondansetron 4 MG/2 ML Vial IV ×2 (21:12→22:27)
[2021-07-16] MEDS: Dicyclomine 20 MG/2 ML Vial IM (21:12)
[2021-07-16 21:14] LABS: Absolute Lymphocyte Count 4.02 X10^3/uL (0.83-4.51); Absolute Neutrophil Count 18.5 X10^3/uL (2.0-7.7); Basophil% 0.4 % (0-1); Eosinophil# 0.13 X10^3/uL; Eosinophils% 0.5 % (0-5); Lymphocyte # 4.02 X10^3/ul (0.83-4.51); Lymphocyte % 16.7 % (19-41); Mean Corp Hgb Conc 32.6 g/dL (32-36); Mean Corpuscular Hgb 29.9 pg (27.0-32.0); Mean Corpuscular Volume 91.7 fL (81-99); Mean Platelet Vol. 11.7 fl (6.2-12.0); Monocyte# 1.19 X10^3/uL; Monocyte% 4.9 % (0-10); NRBC Flagged by Analyzer 0 % (0-5); Neutrophil # 18.49 X10^3/uL (2.7-7.7); Neutrophil % 76.8 % (47-70); Platelet Count 516 K/mm3 (150-450); RBC Distribution Width SD 47.2 fl (35.1-43.9); Red Blood Count 4.69 M/mm3 (4.2-5.4); White Blood Count 24.1 K/mm3 (4.4-11.0)
[2021-07-16] MEDS: 0.9% Normal Saline 1,000 ML 1000 ML IV (21:14)
[2021-07-16 21:31] LABS: ALB/GLOB Ratio 0.8 RATIO (0.9-2.4); AST(SGOT) 22 U/L (15-37); Alanine Aminotransfer ALT/SGPT 21 U/L (13-56); Albumin, Serum 3.8 g/dL (3.2-5.0); Alkaline Phosphatase 119 U/L (45-117); Anion Gap 13 (5-15); BUN 15 mg/dL (7-18); BUN/Creat Ratio 18.1 RATIO (10-20); Calcium,Total 10.4 mg/dL (8.5-10.1); Chloride 104 mmol/L (98-107); Creatinine, Serum 0.83 mg/dL (0.55-1.02); EST Glomerular Filtration Rate 72 mL/min (>60); Est Glom Filt Rate - Afr Amer 87 mL/min (>60); Globulin 4.6 g/dL (2.2-4.2); Glucose 177 mg/dL (74-106); Potassium 3.2 mmol/L (3.5-5.1); Protein, Total 8.4 g/dL (6.4-8.2); Sodium Level 141 mmol/L (136-145); Troponin-I HS 5 pg/mL (3.0-54.0)
[2021-07-16 21:54] LABS: Bacteria 0 SEEN /hpf (None Seen); Mucous, Urine 0 SEEN /hpf (<or=2+); Red Blood Cells-Urine 0 SEEN /hpf (0-5); Squamous Epithelial Cells - UA 0 SEEN /hpf (5-10); White Blood Cells 0 SEEN /hpf (0-5)
[2021-07-16 22:05] LABS: Color, Urine Amber (Yellow); Glucose, Dipstick Normal (Normal); Ketone-Dipstick 50 mg/dl (Negative); Leukocyte Esterase-Dipstick Negative /ul (Negative); Nitrite-Dipstick Negative (Negative); Occult Blood-Urine Negative /ul (Negative); Protein-Dipstick 30 mg/dl (Negative); Urine Bilirubin Dipstick Negative (Negative); Urine Clarity Sl. Cloudy (Clear); Urine Urobilinogen 1 mg/dl (Normal)
--- NOTE | 2021-07-16 22:07 | CT_ITS ---
We are attempting to reach an attending provider to discuss findings. An addendum with communication details will be sent when the communication is complete. INDICATION: abdominal pain EXAMINATION: CT Abdomen And Pelvis W/O Contrast Injection TECHNIQUE: Helically acquired images were obtained of the abdomen and pelvis without the use of IV contrast. A radiation dose optimization technique was used for this scan. Oral contrast: None. COMPARISON: None FINDINGS: Evaluation of the solid organs and vascular structures is limited without intravenous contrast. Visualized lung bases: Bibasilar atelectasis. Liver: There is pneumobilia. Gallbladder: There is a small amount of air within the gallbladder, which does not appear to be within the gallbladder wall. There is pericholecystic inflammatory changes. 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 Spleen: Unremarkable Pancreas: Unremarkable Adrenal Glands: Unremarkable Kidneys: Unremarkable Vasculature: Unremarkable GI Tract: Multiple dilated loops of air and fluid-filled small bowel measuring up to 3 cm in diameter. There is a 1.6 cm gallstone in the mid ileum with decompressed bowel distal to this point. Lymphadenopathy: None Peritoneum: No ascites. Bladder: Unremarkable Reproductive organs: Unremarkable Bones/Soft tissues: Mild scattered degenerative changes of the visualized spine. 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 Electronically Signed: Felipe Vuong MD at 23:43 EST Tel , Service support ,
[2021-07-16 22:11] LABS: Calcium Oxalate Crystals Ur 2+ /hpf (<or=2+)
[2021-07-16] MEDS: Morphine 4 MG/ML Syringe IV (22:28)
[2021-07-16 22:30] VITALS: BP 147/83; PULSE 81; RESP 14; O2SAT 99
--- NOTE | 2021-07-16 23:00 | ED.RN ---
PT DECLINES POTASSIUM AT THIS TIME, FEEL NAUSEOUS. AWARE.
[2021-07-17] MEDS: metroNIDAZOLE 500 MG/100 ML BAG 100 MG IV (00:40)
[2021-07-17 01:22] LABS: Lactic Acid 1.1 mmol/L (0.4-1.9)
--- NOTE | 2021-07-17 01:35 | HP.PCM_ITS ---
HPI - General HPI Narrative TONYA AMOS, is a 70 F with past history of CVA, hypertension, MA, PE, PVCs who presents with acute onset abdominal pain, nausea, vomiting, and diarrhea. Her daughter is present with her at bedside and provides some of the history. Patient states that today she did not feel well. She attempted to make some soup about 3 PM this afternoon and immediately began with severe abdominal pain, nausea, vomiting, and diarrhea. Patient's daughter got to her mother shortly thereafter and decided to call the squad after noting her mother to be covered in her own vomitus and diarrhea. Patient also notes that she had a brief episode of fainting in response to severe pain while she was being loaded up with EMS. Patient denies any pain complaints leading up to today's general feeling of malaise. Patient's ER work-up is notable for laboratories that demonstrated leukocytosis of 24,000, thrombocytosis of 516, and notably normal lactate of 1.1. 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 Patient states that her abdominal pain is overall much improved, but still colicky and persist despite pain medication. She also adds that her nausea is not completely resolved either. [facility] Medical History (Updated 07/17/21 @ 01:[address] Ralph Sorensen MD) Anxiety and depression CVA (cerebral vascular accident) HTN (hypertension) Non-ST elevation MA (NSTEMI) Pulmonary embolism PVCs (premature ventricular contractions) Home Medications escitalopram oxalate 10 mg PO DAILY 04/01/17 [History Last Taken 03/25/19] multivitamin with folic acid 1 tab PO DAILY 04/01/17 [History Last Taken 10/25/18] apixaban 5 mg PO BID #60 tab 11/17/18 [Rx Last Taken Unknown] acetaminophen 1,000 mg PO TID PRN 03/24/19 [History Last Taken Unknown] atorvastatin 40 mg PO QHS 03/24/19 [History Last Taken Unknown] cholecalciferol (vitamin D3) 5,000 unit PO DAILY 03/24/19 [History Last Taken Unknown] levothyroxine 25 mcg PO DAILY 03/24/19 [History Last Taken Unknown] loratadine 10 mg PO DAILY PRN 03/24/19 [History Last Taken Unknown] potassium chloride 20 meq PO DAILY 03/24/19 [History Last Taken Unknown] melatonin 10 mg capsule 10 mg PO QHS PRN 06/09/19 [History Last Taken Unknown] metoprolol succinate 25 mg tablet,extended release 24 hr 12.5 mg PO DAILY tab 06/24/19 [History Last Taken Unknown] metformin 1,000 mg PO BID 03/08/20 [History Last Taken Unknown] Allergy/AdvReac Type Severity Reaction Status Date / Time Penicillins Allergy Unknown Verified 07/16/21 20:19 adhesive tape AdvReac Rash Verified 07/16/21 20:19 Surgical History Closed left hip fracture Social History (Updated 06/24/19 @ 15:14 by Arturo Lee MANAGER USER INTERFACE, MANAGER USER INTERFACE-C) Smoking Status: Former smoker Vital Signs Vital Signs Vital Signs: 07/16/21 20:16 07/16/21 22:30 Temperature 98 F Temperature Source Temporal Pulse Rate 81 81 Respiratory Rate 16 14 Blood Pressure 158/81 H 147/83 H Blood Pressure Mean 106 104 Pulse Ox 95 99 Oxygen Delivery Method Room Air Room Air Weight Weight: 166 lb 7.184 oz Body Mass Index (BMI) 25.2 Physical Exam Const alert and oriented x3 Constitutional Narrative: Mild distress from colicky abdominal pain General Appearance: cooperative GI GI Narrative: Overweight, mildly distended, no scars, soft, mildly tender to palpation particularly over the right abdominal quadrants Results Lab / Micro Data Result Diagrams: 07/16/21 19:58 07/16/21 19:58 Labs: Laboratory Results - last 24 hr 07/16/21 19:58: WBC 24.1 H, RBC 4.69, Hgb 14.0, Hct 43.0, MCV 91.7, MCH 29.9, MCHC 32.6, RDW Std Deviation 47.2 H, RDW Coeff of Elizabeth 14.0, Plt Count 516 H, MPV 11.7, Immature Gran % (Auto) 0.700, Neut % (Auto) 76.8 H, Lymph % (Auto) 16.7 L, Gilpin % (Auto) 4.9, Eos % (Auto) 0.5, Baso % (Auto) 0.4, Absolute Neuts (auto) 18.5 H, Absolute Lymphs (auto) 4.02, Nucleated RBC % 0 07/16/21 19:58: Sodium 141, Potassium 3.2 L, Chloride 104, Carbon Dioxide 24.0, Anion Gap 13, BUN 15, Creatinine 0.83, Estim Creat Clear Calc 61.80, Est GFR (MDRD) Af Amer 87, Est GFR (MDRD) Non-Af 72, BUN/Creatinine Ratio 18.1, Glucose 177 H, Calcium 10.4 H, Total Bilirubin 0.60, AST 22, ALT 21, Alkaline Phosphatase 119 H, Troponin I High Sens 5, Total Protein 8.4 H, Albumin 3.8, Globulin 4.6 H, Albumin/Globulin Ratio 0.8 L 07/16/21 21:50: Urine Color Alejandra, Urine Clarity Sl. 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 N.B. : The above Results were Read Back by Felipe Vuong MD to Praneeth García MD, and understanding confirmed on 07/16/2021 23:45:27 (ET). Electronically Signed: Felipe Vuong MD at 23:43 EST Tel , Service support , Assessment & Plan Assessment/Plan (1) Gallstone ileus: PLAN: This is a 70-year-old female with a moderately complex past medical history who presents with evidence of a gallstone ileus. 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 Significantly, the patient has a normal lactate, no pneumatosis intestinalis, and reasonable abdominal exam. She states, and her daughter confirms, that she lives alone and is independent in all of her ADLs at this point. I discussed with the patient and her daughter the pathophysiology at play with a gallstone ileus and options for treatment including exploratory laparotomy with enterolithotomy versus single-stage procedure which would address gallbladder and fistula as well. Given the patient's premorbid status, I believe she would be a reasonable candidate for consideration of a single stage procedure. Patient is careful to inform me that when she was last under medical attention in 2019 for a left hip fracture, she suffered a heart attack, stroke, and pulmonary embolus. She states she had a subsequent cardiac catheterization and was told there is no further intervention required. At this juncture, I believe the patient warrants transfer to a higher level of care as we are not well equipped to offer more technically complex foregut/biliary procedures required for closure of a cholecystoduodenal fistula nor have the dedicated CVICU services that the patient may require during the perioperative period.
[2021-07-17] MEDS: Ciprofloxacin 400 MG/200 ML BAG 200 MG IV (01:44)
[2021-07-17 02:00] VITALS: BP 128/71; RESP 18
[2021-07-17] MEDS: Ondansetron 4 MG/2 ML Vial IV ×2 (02:07→06:40)
--- NOTE | 2021-07-17 02:27 | RAD_ITS ---
STUDY: X-RAY - ABDOMEN/PELVIS REASON FOR EXAM: Female, 70 years old. Status post nasogastric tube placement TECHNIQUE: AP supine and decubitus views of the abdomen and pelvis. COMPARISON: None. FINDINGS: Nasogastric tube extends below the diaphragm with the tip projecting over the antrum of the stomach. Small bowel and colonic gas patterns are normal. No mucosal thickening. No free intraperitoneal air. The visualized liver, spleen and kidneys are grossly normal in size and morphology. No intra-abdominal calcification. Atelectasis versus scar formation at the left medial lung base. Mild multilevel degenerative change of the spine. RAD/Abdomen Single View (Portable) IMPRESSION: 1. Appropriate positioning of nasogastric tube. 2. Normal bowel gas pattern. Electronically Signed: Chandan Foote MD at 3:20 EST Tel , Service support ,
[2021-07-17] MEDS: Oxymetazoline 0.05% 1 SPRAY SPRAY.BTL 2 SPRAY NASAL (02:50)
[2021-07-17] MEDS: Lidocaine 4% 5 ML Ampul 2 ML INHALATION (02:53)
[2021-07-17 03:01] VITALS: BP 155/89; PULSE 100; RESP 17; TEMP 36.7; O2SAT 92
[2021-07-17 04:04] VITALS: BP 139/80; PULSE 98; RESP 18; O2SAT 94
[2021-07-17 06:13] VITALS: BP 95/55; PULSE 90; RESP 18; O2SAT 91
[2021-07-17 06:15] VITALS: BP 117/98; O2SAT 96
== END 2021-07-17 06:50 | disposition short-term general hospital (02) ==
PROVIDERS: Emergency Provider Emergency Medicine; PCP Family Medicine Geriatric Medicine
DX: K81.0 Acute cholecystitis (principal); K56.3 Gallstone ileus; K56.609 Unspecified intestinal obstruction, unspecified as to partial versus complete obstruction; I10 Essential (primary) hypertension; F32.A Depression, unspecified; F41.9 Anxiety disorder, unspecified; I25.2 Old myocardial infarction; Z86.73 Personal history of transient ischemic attack (TIA), and cerebral infarction without residual deficits; Z87.19 Personal history of other diseases of the digestive system; Z86.711 Personal history of pulmonary embolism; Z79.01 Long term (current) use of anticoagulants; Z79.84 Long term (current) use of oral hypoglycemic drugs; Z79.899 Other long term (current) drug therapy; Z87.891 Personal history of nicotine dependence
CPT/HCPCS: 36415; 74018; 74176; 80053; 81001; 83605; 84484; 85025; 87426; 93005; 96361; 96365; 96368; 96372; 96374; 96375; 96376; 99285; J7030; A4216; J0744; J2405

== ENCOUNTER 2021-07-24 13:59 | Outpatient (CLI) | payer MEDICARE, SELFPAY ==
--- NOTE | 2021-07-24 14:12 | RAD_ITS ---
STUDY: X-RAY - ABDOMEN/PELVIS REASON FOR EXAM: Female, 70 years old. FECAL IMPACTION TECHNIQUE: Two AP supine views of the abdomen and pelvis. COMPARISON : July 17, 2021 chest x-ray: FINDINGS: Normal visualized lung bases. There is moderate stool in the colon. Post operative changes in the midline of the abdomen. The liver spleen and kidneys are mostly obscured. There is partial visualization of a left hip open reduction internal fixation. RAD/Abd Inc Decub and/or Erect IMPRESSION: Nonspecific bowel gas pattern. Moderate stool in the colon. Electronically Signed: Elida Daiz MD at 8:02 EST Tel , Service support ,
[2021-07-24 14:28] LABS: Absolute Lymphocyte Count 2.27 X10^3/uL (0.83-4.51); Absolute Neutrophil Count 5.8 X10^3/uL (2.0-7.7); Basophil# 0.05 X10^3/uL; Basophil% 0.6 % (0-1); Eosinophil# 0.22 X10^3/uL; Eosinophils% 2.5 % (0-5); Hematocrit 36.9 % (37-47); Hemoglobin 12.1 g/dL (12.0-15.0); Lymphocyte # 2.27 X10^3/ul (0.83-4.51); Lymphocyte % 25.4 % (19-41); Mean Corp Hgb Conc 32.8 g/dL (32-36); Mean Corpuscular Hgb 29.5 pg (27.0-32.0); Mean Platelet Vol. 9.8 fl (6.2-12.0); Monocyte# 0.58 X10^3/uL; Monocyte% 6.5 % (0-10); NRBC Flagged by Analyzer 0 % (0-5); Neutrophil # 5.76 X10^3/uL (2.7-7.7); Neutrophil % 64.6 % (47-70); Platelet Count 491 K/mm3 (150-450); RBC Distribution Width CV 13.9 % (11.6-14.6); RBC Distribution Width SD 46.1 fl (35.1-43.9); White Blood Count 8.9 K/mm3 (4.4-11.0)
[2021-07-24 15:29] LABS: ALB/GLOB Ratio 0.7 RATIO (0.9-2.4); AST(SGOT) 123 U/L (15-37); Alanine Aminotransfer ALT/SGPT 92 U/L (13-56); Albumin, Serum 3.1 g/dL (3.2-5.0); Alkaline Phosphatase 94 U/L (45-117); Anion Gap 9 (5-15); BUN 9 mg/dL (7-18); Calcium,Total 9.2 mg/dL (8.5-10.1); Chloride 103 mmol/L (98-107); Creatinine, Serum 0.75 mg/dL (0.55-1.02); EST Glomerular Filtration Rate 80 mL/min (>60); Est Glom Filt Rate - Afr Amer 97 mL/min (>60); Globulin 4.2 g/dL (2.2-4.2); Glucose 147 mg/dL (74-106); Potassium 3.4 mmol/L (3.5-5.1); Protein, Total 7.3 g/dL (6.4-8.2); Sodium Level 142 mmol/L (136-145)
== END 2021-07-24 23:59 | disposition short-term general hospital (02) ==
LOC: POLAB3 14:04 → RAD 14:11
PROVIDERS: PCP Family Medicine Geriatric Medicine; Referring Provider Family Medicine Geriatric Medicine; Visit Provider Family Medicine Geriatric Medicine
DX: K56.41 Fecal impaction (principal); R68.81 Early satiety
CPT/HCPCS: 36415; 74019; 80053; 85025

== ENCOUNTER 2021-09-09 12:56 | Outpatient (CLI) | payer MEDICARE, SELFPAY ==
[2021-09-09 16:40] LABS: Absolute Lymphocyte Count 2.58 X10^3/uL (0.83-4.51); Absolute Neutrophil Count 4.5 X10^3/uL (2.0-7.7); Basophil# 0.07 X10^3/uL; Basophil% 0.9 % (0-1); Eosinophil# 0.16 X10^3/uL; Hematocrit 37.7 % (37-47); Hemoglobin 12.3 g/dL (12.0-15.0); Lymphocyte # 2.58 X10^3/ul (0.83-4.51); Lymphocyte % 32.5 % (19-41); Mean Corp Hgb Conc 32.6 g/dL (32-36); Mean Corpuscular Hgb 29.8 pg (27.0-32.0); Mean Corpuscular Volume 91.3 fL (81-99); Mean Platelet Vol. 11.6 fl (6.2-12.0); Monocyte# 0.63 X10^3/uL; Monocyte% 7.9 % (0-10); NRBC Flagged by Analyzer 0 % (0-5); Neutrophil # 4.48 X10^3/uL (2.7-7.7); Neutrophil % 56.4 % (47-70); Platelet Count 357 K/mm3 (150-450); RBC Distribution Width CV 14.9 % (11.6-14.6); RBC Distribution Width SD 50.1 fl (35.1-43.9); Red Blood Count 4.13 M/mm3 (4.2-5.4); White Blood Count 7.9 K/mm3 (4.4-11.0)
[2021-09-09 17:00] LABS: BUN 18 mg/dL (7-18); Creatinine, Serum 0.77 mg/dL (0.55-1.02); Glucose 87 mg/dL (74-106)
[2021-09-09 17:01] LABS: ALB/GLOB Ratio 0.8 RATIO (0.9-2.4); AST(SGOT) 23 U/L (15-37); Alanine Aminotransfer ALT/SGPT 28 U/L (13-56); Albumin, Serum 3.6 g/dL (3.2-5.0); Alkaline Phosphatase 127 U/L (45-117); Anion Gap 5 (5-15); BUN/Creat Ratio 23.3 RATIO (10-20); Calcium,Total 9.2 mg/dL (8.5-10.1); Chloride 105 mmol/L (98-107); EST Glomerular Filtration Rate 78 mL/min (>60); Est Glom Filt Rate - Afr Amer 94 mL/min (>60); Globulin 4.5 g/dL (2.2-4.2); Potassium 3.8 mmol/L (3.5-5.1); Protein, Total 8.1 g/dL (6.4-8.2); Sodium Level 139 mmol/L (136-145); Thyroid Stim Hormone (TSH) 2.73 uIU/mL (0.358-3.74)
[2021-09-09 17:03] LABS: Vitamin D,25 Hydroxy 36.8 ng/mL
== END 2021-09-09 23:59 | disposition home or self-care (01) ==
LOC: POLAB3 12:58
PROVIDERS: PCP Family Medicine Geriatric Medicine; Visit Provider Family Medicine Geriatric Medicine
DX: E11.65 Type 2 diabetes mellitus with hyperglycemia (principal); E55.9 Vitamin D deficiency, unspecified; I10 Essential (primary) hypertension
CPT/HCPCS: 36415; 80053; 82306; 84443; 85025

== ENCOUNTER → 2021-11-14 | Outpatient (CLI) | payer MEDICARE, SELFPAY ==
--- NOTE | 2021-11-14 11:03 | RAD_ITS ---
EXAM: XR LUMBOSACRAL SPINE, 2 OR 3 VIEWS CLINICAL INDICATION: LOW BACK PAIN TECHNIQUE: Frontal and lateral views of the lumbar spine and sacrum. This report was created using Tripe[employer] report generation technology. COMPARISON: None. FINDINGS: VERTEBRAE: Mild multilevel vertebral body osteophytosis. L5-S1 facet arthropathy. Preserved vertebral body height. No fracture. No spondylolisthesis. Preservation of the normal lumbar lordosis. DISC SPACES: Disc space narrowing and vacuum phenomenon noted at the L5-S1 level. GASTROINTESTINAL TRACT: Unremarkable as visualized. Included bowel gas pattern is non-obstructive. RAD/Lumbar Spine 2 or 3 Views IMPRESSION: No acute abnormality. Moderate spondylosis. Electronically Signed: Vasiliy Mcrae MD at 16:34 EDT ,
--- NOTE | 2021-11-14 11:03 | RAD_ITS ---
EXAM: XR LEFT RIBS AND AP CHEST, 3 OR MORE VIEWS CLINICAL INDICATION: L FLANK PAIN TECHNIQUE: Frontal and oblique views of the left ribs and frontal view of the chest. This report was created using JME[employer] report Adyen technology. COMPARISON: None. FINDINGS: LUNGS AND PLEURAL SPACES: Unremarkable. No consolidation or edema. No pneumothorax. No effusion. HEART: Unremarkable. Cardiac silhouette not enlarged. MEDIASTINUM: Central airways and mediastinal contour are unremarkable. BONES/JOINTS: Unremarkable. No evidence of displaced rib fractures. RAD/Ribs Uni Min 3V w/PA Chest IMPRESSION: No acute abnormality. Electronically Signed: Vasiliy Mcrae MD at 16:53 EDT ,
== END | disposition home or self-care (01) ==
LOC: RAD 11:01
PROVIDERS: PCP Family Medicine Geriatric Medicine; Referring Provider Family Medicine Geriatric Medicine; Visit Provider Family Medicine Geriatric Medicine
DX: M54.50 Low back pain, unspecified (principal); R10.30 Lower abdominal pain, unspecified
CPT/HCPCS: 71101; 72100

== ENCOUNTER → 2022-03-18 | Outpatient (CLI) | payer MEDICARE, SELFPAY ==
[2022-03-18 12:04] LABS: Absolute Lymphocyte Count 1.82 X10^3/uL (0.83-4.51); Absolute Neutrophil Count 5.1 X10^3/uL (2.0-7.7); Basophil# 0.07 X10^3/uL; Basophil% 0.9 % (0-1); Eosinophil# 0.14 X10^3/uL; Eosinophils% 1.8 % (0-5); Hematocrit 36.3 % (37-47); Hemoglobin 12.1 g/dL (12.0-15.0); Lymphocyte # 1.82 X10^3/ul (0.83-4.51); Lymphocyte % 23.7 % (19-41); Mean Corp Hgb Conc 33.3 g/dL (32-36); Mean Corpuscular Volume 93.1 fL (81-99); Mean Platelet Vol. 11.1 fl (6.2-12.0); Monocyte# 0.56 X10^3/uL; Monocyte% 7.3 % (0-10); NRBC Flagged by Analyzer 0 % (0-5); Neutrophil # 5.05 X10^3/uL (2.7-7.7); Neutrophil % 65.9 % (47-70); Platelet Count 315 K/mm3 (150-450); RBC Distribution Width CV 14.2 % (11.6-14.6); RBC Distribution Width SD 48.2 fl (35.1-43.9); White Blood Count 7.7 K/mm3 (4.4-11.0)
[2022-03-18 12:19] LABS: Vitamin D,25 Hydroxy 32.3 ng/mL
[2022-03-18 12:23] LABS: ALB/GLOB Ratio 0.9 RATIO (0.9-2.4); AST(SGOT) 16 U/L (15-37); Alanine Aminotransfer ALT/SGPT 22 U/L (13-56); Albumin, Serum 3.4 g/dL (3.2-5.0); Alkaline Phosphatase 96 U/L (45-117); Anion Gap 5 (5-15); BUN 14 mg/dL (7-18); BUN/Creat Ratio 16.7 RATIO (10-20); Chloride 109 mmol/L (98-107); Creatinine, Serum 0.84 mg/dL (0.55-1.02); EST Glomerular Filtration Rate 71 mL/min (>60); Est Glom Filt Rate - Afr Amer 86 mL/min (>60); Globulin 3.6 g/dL (2.2-4.2); Glucose 168 mg/dL (74-106); Potassium 3.7 mmol/L (3.5-5.1); Sodium Level 140 mmol/L (136-145); Thyroid Stim Hormone (TSH) 1.65 uIU/mL (0.358-3.74)
== END | disposition home or self-care (01) ==
LOC: POLAB3 09:40
PROVIDERS: PCP Family Medicine Geriatric Medicine; Visit Provider Family Medicine Geriatric Medicine
DX: E11.65 Type 2 diabetes mellitus with hyperglycemia (principal); E55.9 Vitamin D deficiency, unspecified; I10 Essential (primary) hypertension
CPT/HCPCS: 36415; 80053; 82306; 84443; 85025

== ENCOUNTER → 2022-03-21 | Outpatient (CLI) | payer MEDICARE, SELFPAY ==
--- NOTE | 2022-03-21 12:32 | BI_ITS ---
MAMMOGRAPHY - BILATERAL SCREENING REASON FOR EXAM: Female, 71 years old. Routine annual screening examination. PERTINENT HISTORY: Aunt with breast cancer. Remote right excisional breast biopsy. TECHNIQUE: Digital bilateral breast jaqueline (3D mammographic acquisition) in the CC and MLO projections. 2-D mediolateral oblique (MLO) and craniocaudad (CC) views of both breasts were obtained. CAD: Full Field Digital Mammography with Computer Added Detection was performed. COMPARISON: Comparison is made with prior study 01/29/2018 and 10/31/2016. FINDINGS: Breast Composition: There are scattered areas of fibroglandular density. There are no dominant masses or suspicious calcifications. No other significant abnormalities are identified. There has been no significant change since the prior study. BI/SCRN MAMM (CAD)W/JAQUELINE BILAT IMPRESSION: Stable bilateral screening mammogram. Yearly follow-up mammogram recommended. (A) ASSESSMENT CATEGORY: BIRADS Category 1: Negative. A letter regarding these results will be sent to the patient by the facility within 30 days. Approximately 10% of breast cancers are not detected by mammography. A normal mammogram should not delay biopsy of a clinically suspicious abnormality. [id number] Electronically Signed: Vineet Harrington MD at 14:44 EDT ,
== END | disposition home or self-care (01) ==
LOC: OPBI 12:31
PROVIDERS: PCP Family Medicine Geriatric Medicine; Visit Provider Family Medicine Geriatric Medicine
DX: Z12.31 Encounter for screening mammogram for malignant neoplasm of breast (principal)
CPT/HCPCS: 77063; 77067

== ENCOUNTER 2022-06-10 13:37 | Outpatient (CLI) | payer MEDICARE, SELFPAY ==
--- NOTE | 2022-06-10 13:40 | VDLE_ITS ---
Reason For Study: swelling Procedure LEFT This is a venous duplex using B-mode, color GSV is normal. flow and spectral Doppler. CFV is compressible, spontaneous, phasic, Exam performed in department. competent, and demonstrates normal The exam was abbreviated due to the COVID 19 augmentation. protocol. FV is compressible, spontaneous, phasic, The exam was diagnostic. competent and demonstrates normal A preliminary report was called and/or faxed augmentation. to Dr. Steve. POP V is compressible, spontaneous, phasic, competent and demonstrates normal augmentation. T/P Trunk is compressible. PTV is compressible. LT PerV is compressible. VL/Venous Duplex US, Unilateral Interpretation Summary Deep veins of the left lower extremity are patent and compressible segmentally. There is no evidence of left lower extremity deep vein thrombosis. Valvular competence appears intac t within the proximal deep venous system on the left . The left great saphenous vein appears patent a nd compressible segmentally. Ordering Physician: Marty Steve Chi Performed By: Huy Gallardo RVT
== END 2022-06-10 23:59 | disposition home or self-care (01) ==
PROVIDERS: PCP Family Medicine Geriatric Medicine; Visit Provider Family Medicine Geriatric Medicine
DX: M79.89 Other specified soft tissue disorders (principal); M79.672 Pain in left foot
CPT/HCPCS: 73620; 93971

== ENCOUNTER → 2022-06-10 | Outpatient (CLI) | payer MEDICARE, SELFPAY ==
--- NOTE | 2022-06-10 11:47 | RAD_ITS ---
STUDY: X-RAY - LEFT FOOT CLINICAL: Female, 71 years old. Left foot pain. TECHNIQUE: 2 view(s) of the foot. COMPARISON: None. FINDINGS: Osteopenia. Mild arthrosis of the tibiotalar and subtalar joints. Mild arthrosis of the midfoot. Mild arthrosis of the TMT joints. Moderate arthrosis of the MTP and IP joints with hammertoe deformities. Normal soft tissues. RAD/Foot 2 Views IMPRESSION: Osteopenia with diffuse osteoarthritic changes. No acute abnormality, erosive changes or chondrocalcinosis. Electronically Signed: Delroy Nix, at 13:51 EST ,
== END | disposition home or self-care (01) ==
LOC: RAD 11:43
PROVIDERS: PCP Family Medicine Geriatric Medicine; Visit Provider Family Medicine Geriatric Medicine
DX: M79.672 Pain in left foot (principal)
CPT/HCPCS: 73620

== ENCOUNTER → 2022-09-15 | Outpatient (CLI) | payer MEDICARE, SELFPAY ==
[2022-09-15 13:08] LABS: Absolute Neutrophil Count 4.5 X10^3/uL (2.0-7.7); Basophil# 0.07 X10^3/uL; Basophil% 0.9 % (0-1); Eosinophil# 0.17 X10^3/uL; Eosinophils% 2.2 % (0-5); Hematocrit 38.4 % (37-47); Hemoglobin 12.9 g/dL (12.0-15.0); Lymphocyte % 29.1 % (19-41); Mean Corp Hgb Conc 33.6 g/dL (32-36); Mean Corpuscular Hgb 30.8 pg (27.0-32.0); Mean Corpuscular Volume 91.6 fL (81-99); Mean Platelet Vol. 11.5 fl (6.2-12.0); Monocyte% 7.9 % (0-10); NRBC Flagged by Analyzer 0 % (0-5); Neutrophil % 59.6 % (47-70); Platelet Count 321 K/mm3 (150-450); RBC Distribution Width CV 14.3 % (11.6-14.6); RBC Distribution Width SD 48.1 fl (35.1-43.9); Red Blood Count 4.19 M/mm3 (4.2-5.4); White Blood Count 7.6 K/mm3 (4.4-11.0)
[2022-09-15 13:24] LABS: Vitamin D,25 Hydroxy 35.2 ng/mL
[2022-09-15 13:30] LABS: ALB/GLOB Ratio 0.9 RATIO (0.9-2.4); AST(SGOT) 23 U/L (15-37); Alanine Aminotransfer ALT/SGPT 19 U/L (13-56); Albumin, Serum 3.5 g/dL (3.2-5.0); Alkaline Phosphatase 92 U/L (45-117); Anion Gap 4 (5-15); BUN 14 mg/dL (7-18); BUN/Creat Ratio 17.3 RATIO (10-20); Chloride 106 mmol/L (98-107); Creatinine, Serum 0.81 mg/dL (0.55-1.02); EST Glomerular Filtration Rate 74 mL/min (>60); Est Glom Filt Rate - Afr Amer 89 mL/min (>60); Globulin 3.9 g/dL (2.2-4.2); Glucose 128 mg/dL (74-106); Potassium 3.5 mmol/L (3.5-5.1); Protein, Total 7.4 g/dL (6.4-8.2); Sodium Level 139 mmol/L (136-145); Thyroid Stim Hormone (TSH) 2.05 uIU/mL (0.358-3.74)
== END | disposition home or self-care (01) ==
LOC: POLAB3 10:55
PROVIDERS: PCP Family Medicine Geriatric Medicine; Visit Provider Family Medicine Geriatric Medicine
DX: E55.9 Vitamin D deficiency, unspecified (principal); R53.83 Other fatigue
CPT/HCPCS: 36415; 80053; 82306; 84443; 85025

== ENCOUNTER → 2022-10-07 | Outpatient (CLI) | payer MEDICARE, SELFPAY ==
--- NOTE | 2022-10-07 | LES_PTH ---
PATIENT: TONYA AMOS LOC: [facility] U#:[id number] AGE/SX: 71/F ROOM: RE10/07/[address]: Dr. Marty Steve MD : 1950 BED: DIS: 10/07/2022 SPEC #: [id number] RECD: 10/07/22 13:31 STATUS: ATUL ANN #: [id number] SHA: 10/07/22 00:[address]: Marty Steve Chi DEPT: SURGICAL PATHOLOGY RECD BY: Chandan Wilhelm Tissues: Skin of face, NOS Procedures: Special Stain Group I Surgery Specimen Level IV GMS Stain (control) HEADER OPERATION: Skin biopsy PRE-OP DIAGNOSIS: L98.9 TISSUE SUBMITTED: Left side cheek MICROSCOPIC DIAGNOSIS Left side cheek lesion, excisional biopsy: Intradermal nevus. See comment. EFRAIN:delmi 10/08/2022 COMMENT The specimen also shows focal superficial acute inflammation. Acute inflammation and abscess formation are also noted in the lesion. Minute fragments of bone are noted at the deep margin of the specimen. The lesion is present at the deep margin of the specimen. Clinical correlation and appropriate follow up are necessary. MICROSCOPIC DESCRIPTION Slides are reviewed. GROSS DESCRIPTION Received is one container labeled with the patient's name and not further designated. The specimen consists of a round piece of leonardo-white skin measuring 0.9 x 0.9 x 0.3 cm. The specimen is inked, serially sectioned and submitted entirely in one cassette. / SJ:rg 10/07/2022 TC:1 [facility]: [id number] ADDENDUM ADDENDUM 10/09/2022 10:34 ADDENDUM 10/09/2022 10:34 ADDENDUM 10/09/2022 10:34 ADDENDUM 10/09/2022 10:34 ADDENDUM 10/09/2022 10:34 Special stain for fungi is negative for organisms; matched control is appropriate.
== END | disposition home or self-care (01) ==
LOC: POLAB3 11:17
PROVIDERS: PCP Family Medicine Geriatric Medicine; Visit Provider Family Medicine Geriatric Medicine
DX: L98.9 Disorder of the skin and subcutaneous tissue, unspecified (principal)
CPT/HCPCS: 87210; 88305; 88312

== ENCOUNTER → 2023-03-19 | Outpatient (CLI) | payer MEDICARE, SELFPAY ==
[2023-03-19 12:19] LABS: Absolute Lymphocyte Count 1.73 X10^3/uL (0.83-4.51); Absolute Neutrophil Count 4.5 X10^3/uL (2.0-7.7); Basophil# 0.06 X10^3/uL; Basophil% 0.9 % (0-1); Eosinophil# 0.12 X10^3/uL; Eosinophils% 1.8 % (0-5); Hematocrit 37.3 % (37-47); Hemoglobin 11.9 g/dL (12.0-15.0); Lymphocyte # 1.73 X10^3/ul (0.83-4.51); Lymphocyte % 25.3 % (19-41); Mean Corp Hgb Conc 31.9 g/dL (32-36); Mean Corpuscular Hgb 29.8 pg (27.0-32.0); Mean Corpuscular Volume 93.3 fL (81-99); Mean Platelet Vol. 11.3 fl (6.2-12.0); Monocyte# 0.47 X10^3/uL; Monocyte% 6.9 % (0-10); NRBC Flagged by Analyzer 0 % (0-5); Neutrophil # 4.45 X10^3/uL (2.7-7.7); Platelet Count 344 K/mm3 (150-450); RBC Distribution Width CV 14.4 % (11.6-14.6); RBC Distribution Width SD 49.7 fl (35.1-43.9); White Blood Count 6.8 K/mm3 (4.4-11.0)
[2023-03-19 13:20] LABS: Syphilis Antibodies Non-reactive; Vitamin B12 282 pg/mL (211-911)
[2023-03-19 13:27] LABS: ALB/GLOB Ratio 0.9 RATIO (0.9-2.4); AST(SGOT) 15 U/L (15-37); Alanine Aminotransfer ALT/SGPT 17 U/L (13-56); Albumin, Serum 3.6 g/dL (3.2-5.0); Alkaline Phosphatase 93 U/L (45-117); Anion Gap 7 (5-15); BUN 15 mg/dL (7-18); BUN/Creat Ratio 19.6 RATIO (10-20); Calcium,Total 9.1 mg/dL (8.5-10.1); Chloride 106 mmol/L (98-107); Creatinine, Serum 0.77 mg/dL (0.55-1.02); EST Glomerular Filtration Rate 78 mL/min (>60); Est Glom Filt Rate - Afr Amer 95 mL/min (>60); Globulin 3.9 g/dL (2.2-4.2); Glucose 116 mg/dL (74-106); Potassium 3.8 mmol/L (3.5-5.1); Protein, Total 7.5 g/dL (6.4-8.2); Sodium Level 138 mmol/L (136-145); Thyroid Stim Hormone (TSH) 1.31 uIU/mL (0.358-3.74)
== END | disposition home or self-care (01) ==
LOC: POLAB3 09:07
PROVIDERS: PCP Family Medicine Geriatric Medicine; Visit Provider Family Medicine Geriatric Medicine
DX: R53.83 Other fatigue (principal); E11.65 Type 2 diabetes mellitus with hyperglycemia; Z13.89 Encounter for screening for other disorder; I10 Essential (primary) hypertension; E55.9 Vitamin D deficiency, unspecified
CPT/HCPCS: 36415; 80053; 82306; 82607; 82746; 84443; 85025; 86780

== ENCOUNTER → 2023-09-30 | Outpatient (CLI) | payer MEDICARE, SELFPAY ==
[2023-09-30 11:05] LABS: Absolute Lymphocyte Count 1.66 X10^3/uL (0.83-4.51); Absolute Neutrophil Count 3.9 X10^3/uL (2.0-7.7); Basophil# 0.06 X10^3/uL; Eosinophils% 1.6 % (0-5); Hematocrit 33.3 % (37-47); Hemoglobin 10.8 g/dL (12.0-15.0); Lymphocyte # 1.66 X10^3/ul (0.83-4.51); Mean Corp Hgb Conc 32.4 g/dL (32-36); Mean Corpuscular Hgb 29.7 pg (27.0-32.0); Mean Corpuscular Volume 91.5 fL (81-99); Mean Platelet Vol. 11.1 fl (6.2-12.0); Monocyte# 0.46 X10^3/uL; Monocyte% 7.5 % (0-10); NRBC Flagged by Analyzer 0 % (0-5); Neutrophil # 3.85 X10^3/uL (2.7-7.7); Neutrophil % 62.7 % (47-70); Platelet Count 304 K/mm3 (150-450); RBC Distribution Width CV 14.1 % (11.6-14.6); RBC Distribution Width SD 47.3 fl (35.1-43.9); Red Blood Count 3.64 M/mm3 (4.2-5.4); White Blood Count 6.1 K/mm3 (4.4-11.0)
[2023-09-30 13:14] LABS: Vitamin D,25 Hydroxy 40.4 ng/mL
[2023-09-30 13:32] LABS: AST(SGOT) 25 U/L (15-37); Alanine Aminotransfer ALT/SGPT 25 U/L (13-56); Albumin, Serum 3.5 g/dL (3.2-5.0); Alkaline Phosphatase 92 U/L (45-117); Anion Gap 11 (5-15); BUN 19 mg/dL (7-18); BUN/Creat Ratio 23.8 RATIO (10-20); Calcium,Total 8.9 mg/dL (8.5-10.1); Chloride 105 mmol/L (98-107); EST Glomerular Filtration Rate 75 mL/min (>60); Est Glom Filt Rate - Afr Amer 90 mL/min (>60); Globulin 3.4 g/dL (2.2-4.2); Glucose 209 mg/dL (74-106); Potassium 3.8 mmol/L (3.5-5.1); Protein, Total 6.9 g/dL (6.4-8.2); Sodium Level 139 mmol/L (136-145); Thyroid Stim Hormone (TSH) 1.04 uIU/mL (0.358-3.74)
== END | disposition home or self-care (01) ==
PROVIDERS: PCP Family Medicine Geriatric Medicine; Visit Provider Family Medicine Geriatric Medicine
DX: E11.65 Type 2 diabetes mellitus with hyperglycemia (principal); I10 Essential (primary) hypertension; E55.9 Vitamin D deficiency, unspecified
CPT/HCPCS: 36415; 80053; 82306; 84443; 85025

== ENCOUNTER → 2023-10-08 | Outpatient (CLI) | payer MEDICARE, SELFPAY ==
[2023-10-08 13:18] LABS: Absolute Lymphocyte Count 1.41 X10^3/uL (0.83-4.51); Absolute Neutrophil Count 3.4 X10^3/uL (2.0-7.7); Basophil# 0.04 X10^3/uL; Basophil% 0.8 % (0-1); Eosinophil# 0.16 X10^3/uL; Hematocrit 33.9 % (37-47); Hemoglobin 10.8 g/dL (12.0-15.0); Lymphocyte # 1.41 X10^3/ul (0.83-4.51); Lymphocyte % 26.5 % (19-41); Mean Corp Hgb Conc 31.9 g/dL (32-36); Mean Corpuscular Hgb 29.4 pg (27.0-32.0); Mean Corpuscular Volume 92.4 fL (81-99); Mean Platelet Vol. 11.2 fl (6.2-12.0); Monocyte# 0.34 X10^3/uL; Monocyte% 6.4 % (0-10); NRBC Flagged by Analyzer 0 % (0-5); Neutrophil # 3.36 X10^3/uL (2.7-7.7); Neutrophil % 63.1 % (47-70); Platelet Count 285 K/mm3 (150-450); RBC Distribution Width CV 14.1 % (11.6-14.6); RBC Distribution Width SD 47.7 fl (35.1-43.9); RET-HE 33.3 pg (30-35); Red Blood Count 3.67 M/mm3 (4.2-5.4); Reticulocyte Count 1.21 % (0.5-1.5); White Blood Count 5.3 K/mm3 (4.4-11.0)
[2023-10-08 13:31] LABS: Vitamin B12 268 pg/mL (211-911)
[2023-10-08 13:43] LABS: Ferritin 58 ng/mL (8-252); Iron 60 ug/dL (50-170); Iron Binding Capacity,Total 248 ug/dL (250-450); PERCENT IRON SATURATION 24.2 % (15.0-55.0)
== END | disposition home or self-care (01) ==
LOC: POLAB3 11:45
PROVIDERS: PCP Family Medicine Geriatric Medicine; Visit Provider Family Medicine Geriatric Medicine
DX: D64.9 Anemia, unspecified (principal); E55.9 Vitamin D deficiency, unspecified; E78.5 Hyperlipidemia, unspecified; I10 Essential (primary) hypertension; R53.83 Other fatigue
CPT/HCPCS: 36415; 82607; 82728; 82746; 83540; 83550; 85025; 85045

== ENCOUNTER → 2023-10-13 | Outpatient (CLI) | payer MEDICARE, SELFPAY ==
--- NOTE | 2023-10-13 14:57 | BI_ITS ---
MAMMOGRAPHY - BILATERAL SCREENING REASON FOR EXAM: Female, 72 years old. Routine annual screening examination. PERTINENT HISTORY: Aunt with breast cancer. Remote right excisional breast biopsy. TECHNIQUE: Digital bilateral breast jaqueline (3D mammographic acquisition) in the CC and MLO projections. 2-D mediolateral oblique (MLO) and craniocaudad (CC) views of both breasts were obtained. CAD: Full Field Digital Mammography with Computer Added Detection was performed. COMPARISON: Comparison is made with prior study of March 21, 2022 and January 29, 2018. FINDINGS: Breast Composition: There are scattered areas of fibroglandular density. There are no dominant masses or suspicious calcifications. No other significant abnormalities are identified. There has been no significant change since the prior study. BI/SCRN MAMM (CAD)W/JAQUELINE BILAT IMPRESSION: Stable bilateral screening mammogram. Yearly follow-up mammogram recommended. (A) ASSESSMENT CATEGORY: BIRADS Category 1: Negative. A letter regarding these results will be sent to the patient by the facility within 30 days. Approximately 10% of breast cancers are not detected by mammography. A normal mammogram should not delay biopsy of a clinically suspicious abnormality. [id number] Electronically Signed: Vineet Harrington MD at 9:20 EDT ,
== END | disposition home or self-care (01) ==
LOC: OPBI 14:55
PROVIDERS: PCP Family Medicine Geriatric Medicine; Referring Provider Family Medicine Geriatric Medicine; Visit Provider Family Medicine Geriatric Medicine
DX: Z12.31 Encounter for screening mammogram for malignant neoplasm of breast (principal); Z80.3 Family history of malignant neoplasm of breast
CPT/HCPCS: 77063; 77067

== ENCOUNTER → 2023-11-11 | Outpatient (CLI) | payer MEDICARE, SELFPAY ==
[2023-11-11 10:56] LABS: Absolute Lymphocyte Count 1.72 X10^3/uL (0.83-4.51); Absolute Neutrophil Count 3.8 X10^3/uL (2.0-7.7); Basophil# 0.07 X10^3/uL; Basophil% 1.1 % (0-1); Eosinophil# 0.19 X10^3/uL; Hemoglobin 11.3 g/dL (12.0-15.0); Lymphocyte # 1.72 X10^3/ul (0.83-4.51); Lymphocyte % 27.3 % (19-41); Mean Corp Hgb Conc 32.3 g/dL (32-36); Mean Corpuscular Hgb 29.3 pg (27.0-32.0); Mean Corpuscular Volume 90.7 fL (81-99); Mean Platelet Vol. 11.2 fl (6.2-12.0); Monocyte# 0.48 X10^3/uL; Monocyte% 7.6 % (0-10); NRBC Flagged by Analyzer 0 % (0-5); Neutrophil # 3.82 X10^3/uL (2.7-7.7); Neutrophil % 60.7 % (47-70); Platelet Count 313 K/mm3 (150-450); RBC Distribution Width SD 46.5 fl (35.1-43.9); Red Blood Count 3.86 M/mm3 (4.2-5.4); White Blood Count 6.3 K/mm3 (4.4-11.0)
== END | disposition home or self-care (01) ==
LOC: POLAB3 10:07
PROVIDERS: PCP Family Medicine Geriatric Medicine; Visit Provider Family Medicine Geriatric Medicine
DX: E78.5 Hyperlipidemia, unspecified (principal)
CPT/HCPCS: 36415; 85025

== ENCOUNTER → 2024-03-23 | Outpatient (CLI) | payer MEDICARE, SELFPAY ==
[2024-03-23 10:54] LABS: Absolute Lymphocyte Count 1.56 X10^3/uL (0.83-4.51); Absolute Neutrophil Count 3.6 X10^3/uL (2.0-7.7); Basophil# 0.06 X10^3/uL; Eosinophil# 0.19 X10^3/uL; Eosinophils% 3.3 % (0-5); Hematocrit 36.7 % (37-47); Hemoglobin 11.8 g/dL (12.0-15.0); Lymphocyte # 1.56 X10^3/ul (0.83-4.51); Lymphocyte % 27.1 % (19-41); Mean Corp Hgb Conc 32.2 g/dL (32-36); Mean Corpuscular Hgb 29.4 pg (27.0-32.0); Mean Corpuscular Volume 91.3 fL (81-99); Mean Platelet Vol. 10.6 fl (6.2-12.0); Monocyte# 0.37 X10^3/uL; Monocyte% 6.4 % (0-10); NRBC Flagged by Analyzer 0 % (0-5); Neutrophil # 3.55 X10^3/uL (2.7-7.7); Neutrophil % 61.7 % (47-70); Platelet Count 330 K/mm3 (150-450); RBC Distribution Width CV 14.5 % (11.6-14.6); RBC Distribution Width SD 48.5 fl (35.1-43.9); Red Blood Count 4.02 M/mm3 (4.2-5.4); White Blood Count 5.8 K/mm3 (4.4-11.0)
[2024-03-23 11:22] LABS: Hemoglobin A1c 6.7 % (3.8-5.6)
[2024-03-23 11:27] LABS: ALB/GLOB Ratio 0.8 RATIO (0.9-2.4); AST(SGOT) 22 U/L (15-37); Alanine Aminotransfer ALT/SGPT 19 U/L (13-56); Albumin, Serum 3.4 g/dL (3.2-5.0); Alkaline Phosphatase 109 U/L (45-117); Anion Gap 4 (5-15); BUN 14 mg/dL (7-18); BUN/Creat Ratio 18.5 RATIO (10-20); Calcium,Total 9.4 mg/dL (8.5-10.1); Chloride 107 mmol/L (98-107); Cholesterol 202 mg/dL (200); Creatinine, Serum 0.76 mg/dL (0.55-1.02); EST Glomerular Filtration Rate 79 mL/min (>60); Est Glom Filt Rate - Afr Amer 96 mL/min (>60); Globulin 4.2 g/dL (2.2-4.2); Glucose 165 mg/dL (74-106); High Density Lipoprotein 41 mg/dL; Potassium 4.1 mmol/L (3.5-5.1); Protein, Total 7.6 g/dL (6.4-8.2); Sodium Level 140 mmol/L (136-145); Triglycerides 250 mg/dL; Very Low Density Lipoprotein 50 mg/dL (5-40)
--- NOTE | 2024-03-23 11:42 | RAD_ITS ---
STUDY: X-RAY - LEFT FOOT CLINICAL: Female, 73 years old. Pain. TECHNIQUE: 3 view(s) of the foot. COMPARISON: June 10, 2022 FINDINGS: Osteopenia. Normal visualized subtalar, talonavicular, calcaneocuboid, tarsal and tarsometatarsal articulations. Stable moderate arthrosis of the MTP and IP joints with minimal hammertoe deformities. Normal soft tissues. RAD/Foot min 3 Views IMPRESSION: Stable osteopenia with osteoarthritic changes. Electronically Signed: Delroy Nix MD at 14:44 EDT ,
== END | disposition home or self-care (01) ==
LOC: POLAB3 10:25
PROVIDERS: PCP Family Medicine Geriatric Medicine; Visit Provider Family Medicine Geriatric Medicine
DX: M79.672 Pain in left foot (principal); E11.65 Type 2 diabetes mellitus with hyperglycemia; E78.5 Hyperlipidemia, unspecified; I10 Essential (primary) hypertension; E55.9 Vitamin D deficiency, unspecified
CPT/HCPCS: 36415; 73630; 80053; 80061; 82306; 83036; 84443; 85025

== ENCOUNTER → 2024-06-14 | Outpatient (CLI) | payer MEDICARE, SELFPAY | END | disposition home or self-care (01) | LOC: POLAB3 15:58 | PROVIDERS: PCP Family Medicine Geriatric Medicine; Visit Provider Family Medicine Geriatric Medicine | DX: R68.83 Chills (without fever) (principal) | CPT/HCPCS: 87631 ==

== ENCOUNTER → 2024-06-28 | Outpatient (CLI) | payer MEDICARE, SELFPAY ==
[2024-06-28 15:57] LABS: Hematocrit 38.3 % (37-47); Hemoglobin 12.6 g/dL (12.0-15.0); Mean Corp Hgb Conc 32.9 g/dL (32-36); Mean Corpuscular Hgb 29.9 pg (27.0-32.0); Mean Platelet Vol. 10.6 fl (6.2-12.0); Platelet Count 378 K/mm3 (150-450); RBC Distribution Width CV 13.8 % (11.6-14.6); Red Blood Count 4.21 M/mm3 (4.2-5.4)
[2024-06-28 16:55] LABS: AST(SGOT) 14 U/L (15-37); Alanine Aminotransfer ALT/SGPT 16 U/L (13-56); Albumin, Serum 3.5 g/dL (3.2-5.0); Alkaline Phosphatase 90 U/L (45-117); Anion Gap 6 (5-15); BUN 19 mg/dL (7-18); BUN/Creat Ratio 27.5 RATIO (10-20); Calcium,Total 9.1 mg/dL (8.5-10.1); Chloride 108 mmol/L (98-107); Creatinine, Serum 0.69 mg/dL (0.55-1.02); EST Glomerular Filtration Rate 88 mL/min (>60); Est Glom Filt Rate - Afr Amer 106 mL/min (>60); Globulin 3.6 g/dL (2.2-4.2); Glucose 139 mg/dL (74-106); Potassium 3.9 mmol/L (3.5-5.1); Protein, Total 7.1 g/dL (6.4-8.2); Sodium Level 140 mmol/L (136-145)
== END | disposition home or self-care (01) ==
LOC: POLAB3 15:15
PROVIDERS: PCP Family Medicine Geriatric Medicine; Visit Provider Family Medicine Geriatric Medicine
DX: R19.7 Diarrhea, unspecified (principal); R68.83 Chills (without fever)
CPT/HCPCS: 36415; 80053; 84443; 85027; 87631

== ENCOUNTER → 2024-09-22 | Outpatient (CLI) | payer MEDICARE, SELFPAY ==
[2024-09-22 12:09] LABS: Absolute Lymphocyte Count 2.01 X10^3/uL (0.83-4.51); Absolute Neutrophil Count 4.1 X10^3/uL (2.0-7.7); Basophil# 0.11 X10^3/uL; Basophil% 1.6 % (0-1); Eosinophils% 2.8 % (0-5); Hematocrit 37.4 % (37-47); Hemoglobin 12.4 g/dL (12.0-15.0); Lymphocyte # 2.01 X10^3/ul (0.83-4.51); Lymphocyte % 28.5 % (19-41); Mean Corp Hgb Conc 33.2 g/dL (32-36); Mean Corpuscular Hgb 30.7 pg (27.0-32.0); Mean Corpuscular Volume 92.6 fL (81-99); Mean Platelet Vol. 10.4 fl (6.2-12.0); Monocyte# 0.57 X10^3/uL; Monocyte% 8.1 % (0-10); NRBC Flagged by Analyzer 0 % (0-5); Neutrophil # 4.12 X10^3/uL (2.7-7.7); Neutrophil % 58.4 % (47-70); Platelet Count 378 K/mm3 (150-450); RBC Distribution Width CV 13.9 % (11.6-14.6); RBC Distribution Width SD 47.4 fl (35.1-43.9); Red Blood Count 4.04 M/mm3 (4.2-5.4); White Blood Count 7.1 K/mm3 (4.4-11.0)
[2024-09-22 12:11] LABS: Hemoglobin A1c 6.7 % (<=5.6)
[2024-09-22 13:00] LABS: Vitamin D,25 Hydroxy 60.5 ng/mL (30-100)
[2024-09-22 13:48] LABS: Cholesterol 209 mg/dL (<=200); High Density Lipoprotein 45 mg/dL; Low Density Lipoprotein Calc. 122 mg/dL; Triglycerides 209 mg/dL; Very Low Density Lipoprotein 42 mg/dL (5-40); cholesterol:hdl ratio screen 4.63
[2024-09-22 13:52] LABS: ALB/GLOB Ratio 1.4 RATIO (0.9-2.4); AST(SGOT) 21 U/L (<=31); Alanine Aminotransfer ALT/SGPT 11 U/L (<=34); Albumin, Serum 4.3 g/dL (3.4-4.8); Alkaline Phosphatase 95 U/L (35-104); Anion Gap 10 (5-15); BUN 14 mg/dL (4-19); BUN/Creat Ratio 17.3 RATIO (10-20); Calcium,Total 9.6 mg/dL (7.6-11.0); Carbon Dioxide 25.9 mmol/L (21.0-32.0); Chloride 103 mmol/L (98-108); Creatinine, Serum 0.79 mg/dL (0.70-1.20); EST Glomerular Filtration Rate 78 (>60); Globulin 3.1 g/dL (2.2-4.2); Glucose 136 mg/dL (70-99); Potassium 4.2 mmol/L (3.3-5.1); Protein, Total 7.4 g/dL (5.9-8.4); Sodium Level 139 mmol/L (133-145); Total Bilirubin 0.36 mg/dL (0.00-1.30)
== END | disposition home or self-care (01) ==
LOC: LAB 11:29
PROVIDERS: PCP Family Medicine Geriatric Medicine; Referring Provider Family Medicine Geriatric Medicine; Visit Provider Family Medicine Geriatric Medicine
DX: E78.5 Hyperlipidemia, unspecified (principal); E11.65 Type 2 diabetes mellitus with hyperglycemia; I10 Essential (primary) hypertension; E55.9 Vitamin D deficiency, unspecified
CPT/HCPCS: 36415; 80053; 80061; 82306; 83036; 84443; 85025

== ENCOUNTER → 2025-01-05 | Outpatient (CLI) | payer MEDICARE, SELFPAY | END | disposition home or self-care (01) | PROVIDERS: PCP Family Medicine Geriatric Medicine; Referring Provider Family Medicine Geriatric Medicine; Visit Provider Family Medicine Geriatric Medicine | DX: R05.9 Cough, unspecified (principal) | CPT/HCPCS: 87631 ==

== ENCOUNTER → 2025-03-24 | Outpatient (CLI) | payer MEDICARE, SELFPAY ==
[2025-03-24 13:16] LABS: Hematocrit 37.3 % (37-47); Hemoglobin 12.4 g/dL (12.0-15.0); Immature Granulocytes Count 0.020 X10^3/uL (0.0-0.0); Mean Corp Hgb Conc 33.2 g/dL (32-36); Mean Corpuscular Volume 91.9 fL (81-99); Mean Platelet Vol. 10.7 fl (6.2-12.0); NRBC Flagged by Analyzer 0 % (0-5); Platelet Count 353 K/mm3 (150-450); RBC Distribution Width CV 13.8 % (11.6-14.6); RBC Distribution Width SD 46.9 fl (35.1-43.9); Red Blood Count 4.06 M/mm3 (4.2-5.4); White Blood Count 6.8 K/mm3 (4.4-11.0)
[2025-03-24 14:09] LABS: Vitamin D,25 Hydroxy 82.4 ng/mL (30-100)
[2025-03-24 14:57] LABS: AST(SGOT) 22 U/L (<=31); Alanine Aminotransfer ALT/SGPT 10 U/L (<=34); Albumin, Serum 4.2 g/dL (3.4-4.8); Alkaline Phosphatase 82 U/L (35-104); Anion Gap 11 (5-15); BUN 15 mg/dL (4-19); BUN/Creat Ratio 20.6 RATIO (10-20); Calcium,Total 9.7 mg/dL (7.6-11.0); Carbon Dioxide 25.3 mmol/L (21.0-32.0); Chloride 104 mmol/L (98-108); Globulin 3.2 g/dL (2.2-4.2); Glucose 119 mg/dL (70-99); Potassium 4.0 mmol/L (3.3-5.1)
[2025-03-24 15:16] LABS: Cholesterol 185 mg/dL (<=200); Low Density Lipoprotein Calc. 109 mg/dL; Triglycerides 160 mg/dL; Very Low Density Lipoprotein 32 mg/dL (5-40); cholesterol:hdl ratio screen 4.20
[2025-03-24 15:45] LABS: Creatinine, Urine (random) 107.00 mg/dL (28.00-217.00); Microalbumin,Random Urine < 12.0 mg/L (<20 mg/L)
== END | disposition home or self-care (01) ==
PROVIDERS: PCP Family Medicine Geriatric Medicine; Referring Provider Family Medicine Geriatric Medicine; Visit Provider Family Medicine Geriatric Medicine
DX: E78.5 Hyperlipidemia, unspecified (principal); E11.65 Type 2 diabetes mellitus with hyperglycemia; I10 Essential (primary) hypertension; E55.9 Vitamin D deficiency, unspecified
CPT/HCPCS: 36415; 80053; 80061; 82043; 82306; 82570; 83036; 84443; 85025

== ENCOUNTER 2025-06-07 13:35 | Emergency (ER) | payer MEDICARE, SELFPAY ==
[2025-06-07 13:36] VITALS: BP 184/78; PULSE 64; RESP 16; TEMP 37.1; O2SAT 99; BMI 26.6
--- NOTE | 2025-06-07 14:05 | RAD_ITS ---
PROCEDURE: SHOULDER MIN 2 VIEWS 06/07/2025 REASON FOR EXAM: TRAUMA TECHNIQUE: Procedure Code: RADSH Modality: DX Procedure: SHOULDER 5 VIEWS Laterality: Left COMPARISON: Left shoulder study of 10/28/2018 RAD/Shoulder min 2 Views IMPRESSION: Generalized osteopenia is present. Prior lower cervical surgery is seen. Lucencies of the left humeral head and neck are seen. This, combined with the apparent posterior angulation, suggest a left humeral head and neck FRACTURE. [id number] left acromioclavicular joint degenerative changes are seen, wi th partial joint narrowing. The left glenohumeral joint demonstrates at least mild degenerative changes. The visualized left hemithorax shows no pneumothorax or other acute process. Reading Location: [place] [id number]
[2025-06-07 15:13] VITALS: BP 133/78; PULSE 66; RESP 16; TEMP 36.6; O2SAT 99
--- NOTE | 2025-06-07 15:13 | EDS_ITS ---
HPI History of Present Illness Chief Complaint: Fall Informant: patient, family and EMS Narrative Narrative: 74-year-old female presenting to the emergency room following a fall. Patient arriving by EMS. She states that she got up and was walking and tripped over one of her large dogs that was on the ground. Is believe that she fell into a record player and then down onto the ground. She states that she impacted her shoulder on the ground. She states she did not hit her head. She has no headache. She has no neck pain. States all the pain that she is experiencing is in the left shoulder. She feels radiation of that pain down towards her hand. She is right-handed. EMS notes that she was given fentanyl for pain [facility] Medical History PVCs (premature ventricular contractions) CVA (cerebral vascular accident) Pulmonary embolism Non-ST elevation AL (NSTEMI) Anxiety and depression HTN (hypertension) Home Medications ?Medication ?Instructions ?Recorded ?Last Taken ?Type escitalopram oxalate 10 mg tablet 10 mg PO DAILY anxie ty 04/01/17 03/25/19 History multivitamin with folic acid 400 1 tab PO DAILY vitami n 04/01/17 10/25/18 History mcg tablet apixaban 5 mg tablet 5 mg PO BID #60 tabs 9 Unknown Rx acetaminophen 500 mg tablet 1,000 mg PO TID PRN Pain 0 03/24/19 Unknown History atorvastatin 80 mg tablet 40 mg PO QHS cholesterol 12/05 Unknown History cholecalciferol (vitamin D3) 125 5,000 unit PO DAILY 0 03/24/19 Unknown History mcg (5,000 unit) capsule levothyroxine 25 mcg tablet 25 mcg PO DAILY 03/24/19 U nknown History loratadine 10 mg tablet 10 mg PO DAILY PRN Allergies 03/24/19 Unknown History potassium chloride 20 mEq 20 meq PO DAILY 03/24/19 Unk nown History tablet,extended release(part/cryst) melatonin 10 mg capsule 10 mg PO QHS PRN sleep 06/09 Unknown History metoprolol succinate 25 mg 12.5 mg PO DAILY blood pres sure 06/24/19 Unknown History tablet,extended release 24 hr metformin 1,000 mg tablet 1,000 mg PO BID 08/20/20 Unk nown History oxycodone-acetaminophen 5 mg-325 1 tab PO Q6H PRN PRN pain 5 days 06/07/25 Unknown Rx mg tablet #20 TABLETS Allergy/AdvReac Type Severity Reaction Status Date / Time Penicillins Allergy Unknown Verified 06/07/25 13:38 adhesive tape AdvReac Rash Verified 06/07/25 13:38 Surgical History Closed left hip fracture Social History housing: house Smoking Status: Former smoker ROS ROS ED Constitutional Constitutional ED: Denies chills, fever(s) or weight loss Eyes Eyes: Denies change in vision or diplopia ENT ENT ED: Denies ear pain, rhinorrhea or sore throat Cardiovascular Cardiovascular: Denies chest pain, orthopnea, palpitations or racing heartbeat Respiratory/Chest Respiratory/Chest: Denies cough, dyspnea or orthopnea Gastrointestinal Gastrointestinal: Denies abdominal pain, diarrhea, nausea or vomiting Genitourinary Genitourinary ED: Denies dysuria, hematuria or urinary frequency Musculoskeletal Musculoskeletal: Denies arthralgias, back pain, myalgias or neck pain Integumentary Reports other Details: See history of present illness ; Denies abscess or rash Neurologic Neurologic: Denies headache(s) or weakness Psychiatric Psychiatric: Denies anxiety, depression, suicidal ideation or suicidal thoughts Endocrine Endocrinology: Denies polydipsia, polyphagia or polyuria Allergic/Immunologic Allergic/Immunologic ED: Denies mouth swelling, tongue swelling or urticaria EXAM Physical Exam Const Vital Signs: 06/07/25 13:36 06/07/25 13:43 Temperature 98.7 F Temperature Source Oral Pulse Rate 64 Respiratory Rate 16 Respiratory Effort Normal Non-Labored Respiratory Depth Normal Respiratory Pattern Normal Blood Pressure 184/78 H Blood Pressure Mean 113 Pulse Ox 99 Oxygen Delivery Method Room Air Room Air Positive well nourished and well developed General Appearance ED: well developed and NAD HEENT Reports normocephalic, head/scalp atraumatic and moist mucous membranes Eyes PERRL and EOMs intact bilaterally Neck no lymphadenopathy, supple and no JVD Resp normal respiratory effort and clear to auscultation bilaterally Cardio regular rate, regular rhythm and no murmurs GI normal to inspection, nondistended, normoactive bowel sounds and non-tender Palpation: soft Back/Spine no CVA tenderness and normal ROM Extremity Extremity Narrative: Patient has swelling and tenderness to palpation over the proximal humerus. Upon direct testing of the radial ulnar and median nerve both sensory and motor is intact. Normal radial and ulnar pulses. General Extremety ED: Negative for edema General Extremity: Negative for edema Neuro oriented x3 and CN's II-XII intact bilaterally Sensorium / Orientation: alert Motor Exam: strength 5/5 throughout Psych mental status grossly normal Mood & Affect: Negative for depressed or tearful Skin no rashes or lesions noted and no wounds MDM MDM MDM Narrative Medical decision making narrative: Differential diagnosis includes but not limited to fracture dislocation contusion tendon injury ligamentous injury joint capsule injury neurovascular injury Patient appears neurovascularly intact. My independent interpretation of the plain films of the left shoulder is acute fracture of the humeral neck and possibly over the lateral humeral head. Patient placed in a sling. She received pain medication. She sees Dr. Pollock for orthopedics. She was encouraged to follow-up with him. She was advised of possible side effects of Percocet. She states she has had it before and has done well with it History & Record Review Discussion w/independent historian: EMS personnel, Patient and Family Radiography Diagnostic Testing: Clinical Impression(s) from Imaging Studies Shoulder X-Ray 06/07/25 14:05 IMPRESSION: Generalized osteopenia is present. Prior lower cervical surgery is seen. Lucencies of the left humeral head and neck are seen. This, combined with the apparent posterior angulation, suggest a left humeral head and neck FRACTURE. [id number] left acromioclavicular joint degenerative changes are seen, with partial joint narrowing. The left glenohumeral joint demonstrates at least mild degenerative changes. The visualized left hemithorax shows no pneumothorax or other acute process. Reading Location: [place] [id number] Discharge Plan Triage Chief Complaint: Fall ED Provider: Bill Bashir Dx/Rx/DC Orders Clinical Impression: Fall, Fracture of shoulder Instructions: ED Fracture, Shoulder, ED Fall Prevention Prescriptions: New oxycodone-acetaminophen 5-325 mg tablet 1 tab PO Q6H PRN PRN (Reason: pain) 5 Days Qty: 20 0RF No Action metoprolol succinate 25 mg tablet extended release 24 hr 12.5 mg PO DAILY escitalopram oxalate 10 MG tablet 10 mg PO DAILY multivitamin with folic acid 1 TABLET tablet 1 tab PO DAILY melatonin 10 mg capsule 10 mg PO QHS PRN (Reason: sleep) apixaban 5 MG tablet 5 mg PO BID Qty: 60 0RF cholecalciferol (vitamin D3) 5,000 UNIT capsule 5,000 unit PO DAILY atorvastatin 80 MG tablet 40 mg PO QHS acetaminophen 500 MG tablet 1,000 mg PO TID PRN (Reason: Pain) loratadine 10 MG tablet 10 mg PO DAILY PRN (Reason: Allergies) levothyroxine 25 MCG tablet 25 mcg PO DAILY potassium chloride 20 MEQ tablet,ER particles/crystals 20 meq PO DAILY metformin 1,000 MG tablet 1,000 mg PO BID Primary Care Provider: Marty Steve Chi Referrals: Korey Pollock MD [Med Staff - Active Staff, Orthopedics] - As soon as possible Marty Steve Chi, MD [Primary Care Provider, Geriatrics] Activity Restrictions/Additional Instructions: You said that you have had Percocet in the past. Be advised this can cause constipation sedation confusion amongst some of the side effects Print Language: Czech Disposition Disposition: Home, Self Care Discharge Date/Time: 06/07/25 15:14
== END 2025-06-07 15:14 | disposition home or self-care (01) ==
PROVIDERS: Emergency Provider Emergency Medicine; PCP Family Medicine Geriatric Medicine; Visit Provider Emergency Medicine
DX: S42.295A Other nondisplaced fracture of upper end of left humerus, initial encounter for closed fracture (principal); Z86.711 Personal history of pulmonary embolism; I10 Essential (primary) hypertension; Z87.891 Personal history of nicotine dependence; W01.0XXA Fall on same level from slipping, tripping and stumbling without subsequent striking against object, initial encounter; I25.2 Old myocardial infarction; Z86.73 Personal history of transient ischemic attack (TIA), and cerebral infarction without residual deficits; Y93.01 Activity, walking, marching and hiking; Z79.01 Long term (current) use of anticoagulants; Z79.899 Other long term (current) drug therapy; F41.8 Other specified anxiety disorders
CPT/HCPCS: 73030; 99285